=== PATIENT | male | born 1945 | race Caucasian/White ===

== ENCOUNTER 2016-09-26 19:50 | Inpatient (IN) | payer MEDICARE, OTHER ==
[~2016-09-26] VITALS: Ht 172.7 cm; Wt 104.6 kg
[2016-09-26 20:44] VITALS: BP 110/70
[2016-09-26] MEDS ORDERED: PRAM0.255 PO (21:35)
[2016-09-26] MEDS ORDERED: RABE20TA18 PO (21:35)
[2016-09-26] MEDS ORDERED: CHOL10003 PO (21:35)
[2016-09-26] MEDS ORDERED: CLON1TAB3 PO (21:35)
[2016-09-26] MEDS ORDERED: RISP1TAB3 PO (21:35)
[2016-09-26] MEDS ORDERED: BUPR300T3 PO (21:35)
[2016-09-26] MEDS ORDERED: WARF6TAB PO (21:35)
[2016-09-26] MEDS ORDERED: GABA600T2 PO (21:35)
[2016-09-26] MEDS ORDERED: ALLO300T67 PO (21:35)
[2016-09-26] MEDS ORDERED: TEST200V3 IM (21:35)
[2016-09-26] MEDS ORDERED: OXYC-323 PO (21:35)
[2016-09-26] MEDS ORDERED: NABU750T PO (21:35)
[2016-09-26] MEDS ORDERED: OXYB10TA7 PO (21:35)
[2016-09-26] MEDS ORDERED: COLC0.6T34 PO (21:35)
[2016-09-26] MEDS ORDERED: ZOLP10TA4 PO (21:35)
[2016-09-26] MEDS ORDERED: TRAZ-90 PO (21:35)
[2016-09-26] MEDS ORDERED: LITH450T16 PO (21:35)
[2016-09-26] MEDS ORDERED: PRAV20TA2 PO (21:35)
[2016-09-26] MEDS ORDERED: LISI-334 PO (21:35)
[2016-09-26] MEDS ORDERED: ACYC-63 PO (21:35)
[2016-09-26] MEDS ORDERED: CARB1TAB46 PO (21:35)
[2016-09-26] MEDS ORDERED: FERR-26 PO (21:35)
[2016-09-26] MEDS ORDERED: VENL75CA6 PO (21:35)
[2016-09-26] MEDS ORDERED: ACETAMINOPHEN 325 MG TABLET PO PRN (21:45)
[2016-09-26] MEDS ORDERED: MAGNESIUM HYDROXIDE 2,400 MG/30 ML ORAL.SUSP. PO PRN (21:45)
[2016-09-26] MEDS ORDERED: MAG HYDROX/AL HYDROX/SIMETH 30 ML ORAL.SUSP PO PRN (21:45)
[2016-09-26] MEDS ORDERED: METHYL SALICYLATE/MENTHOL TOPICAL OINTMENT 29GM TUBE. TP PRN (21:45)
[2016-09-26] MEDS ORDERED: clonazePAM 1 MG TABLET PO PRN (22:00)
[2016-09-26 22:10] LABS: BASO # 0.1 x10^3/uL (0.0-0.2); BASO % 1 % (0-3); EOS # 0.4 x10^3/uL (0.0-0.7); EOS % 6 % (0-3); HEMATOCRIT 37.5 % (39.0-53.0); HEMOGLOBIN 12.2 g/dL (13.0-17.5); LYMPH # 1.6 x10^3/uL (1.0-4.8); LYMPH % 23 % (24-48); MEAN CORPUSCULAR HEMOGLOBIN 30 pg (25-35); MEAN CORPUSCULAR HGB CONC 33 g/dL (31-37); MEAN CORPUSCULAR VOLUME 92 fL (79-100); MONO # 0.7 x10^3/uL (0.0-1.1); MONO % 10 % (0-9); NEUT # 4.2 x10^3uL (1.8-7.7); NEUT % 60 % (31-73); PLATELET COUNT 145 x10^3/uL (140-400); RED BLOOD COUNT 4.09 x10^6/uL (4.30-5.70); RED CELL DISTRIBUTION WIDTH 19.8 % (11.5-14.5); WHITE BLOOD COUNT 6.9 x10^3/uL (4.0-11.0)
[2016-09-26 22:19] LABS: ALBUMIN/GLOBULIN RATIO 0.9 (1.0-1.7); CALCIUM 8.9 mg/dL (8.5-10.1); CREATININE 1.3 mg/dL (0.7-1.3); GFR 54.6; POTASSIUM 4.1 mmol/L (3.5-5.1); TOTAL BILIRUBIN 0.3 mg/dL (0.2-1.0); TOTAL PROTEIN 6.3 g/dL (6.4-8.2)
[2016-09-26] MEDS ORDERED: VENLAFAXINE 75 MG TABLET. PO SCH (22:30)
[2016-09-26] MEDS ORDERED: traZODone 100 MG TABLET. PO ONE (22:35)
[2016-09-26] MEDS ORDERED: VENLAFAXINE 50 MG TABLET. PO ONE (22:50)
[2016-09-26] MEDS: ZOLPIDEM 10 MG TABLET. PO PRN (23:20)
[2016-09-27 06:22] VITALS: BP 137/75
[2016-09-27] MEDS ORDERED: ZOLPIDEM 10 MG TABLET. PO PRN (07:30)
[2016-09-27] MEDS ORDERED: TESTOSTERONE CYPIONATE 200 MG/ML VIAL. IM SCH (09:00)
[2016-09-27] MEDS: ALLOPURINOL 300 MG TABLET. PO SCH (09:25)
[2016-09-27] MEDS: VENLAFAXINE 50 MG TABLET. PO SCH ×3 (09:25→20:08)
[2016-09-27] MEDS: CARBIDOPA/LEVODOPA 10/100MG TABLET PO SCH ×3 (09:25→20:07)
[2016-09-27] MEDS: LITHIUM CARBONATE ER 450 MG TABLET.ER PO SCH (09:25)
[2016-09-27] MEDS: COLCHICINE 0.6 MG TABLET PO SCH ×3 (09:25→20:07)
[2016-09-27] MEDS: LISINOPRIL 20 MG TABLET PO SCH (09:26)
[2016-09-27] MEDS: PRAMIPEXOLE 0.25 MG TABLET. PO SCH ×3 (09:26→20:07)
[2016-09-27] MEDS: buPROPion XL 300 MG TAB.ER.24H. PO SCH (09:26)
[2016-09-27] MEDS: PANTOPRAZOLE 40 MG TABLET. PO SCH (09:26)
[2016-09-27] MEDS: MELOXICAM 15 MG TABLET. PO SCH (09:26)
[2016-09-27] MEDS: risperiDONE 1 MG TABLET. PO SCH (09:26)
[2016-09-27] MEDS: oxyCODONE/APAP 5/325 1 TAB TABLET PO SCH ×4 (09:27→20:14)
[2016-09-27] MEDS: OXYBUTYNIN CHLORIDE 5 MG TABLET PO SCH ×2 (09:27→20:07)
[2016-09-27] MEDS: FERROUS SULFATE 325 MG TABLET PO SCH (09:27)
[2016-09-27] MEDS: GABAPENTIN 300 MG CAPSULE. PO SCH ×3 (09:27→20:07)
[2016-09-27] MEDS: CHOLECALCIFEROL (VITAMIN D3) 1,000 UNIT TABLET PO SCH (09:27)
[2016-09-27] MEDS: ACYCLOVIR 200 MG CAPSULE PO SCH ×2 (09:28→20:15)
--- NOTE | 2016-09-27 12:39 | EKG ---
[address] [address] Test Date: 2016-09-27 Test Time: 10:49:29 Pat Name: WALTER MOSS Department: Room: [address] [place] [address] Gender: M Youth Worker: : 1945 Requested By: ROLA VARGAS Order Number: [id number] Reading MD: Ger Byrd Measurements Intervals [place] Rate: 42 P: 45 AR: 190 QRS: 44 QRSD: 86 T: 30 QT: 426 QTc: 358 Interpretive Statements SINUS BRADYCARDIA LOW LIMB LEAD VOLTAGE NO SPECIFIC ECG ABNORMALITIES Electronically Signed On 10-06-2016 14:48:51 CDT by Ger Byrd
[2016-09-27 15:49] VITALS: BP 158/80
[2016-09-27] MEDS ORDERED: WARFARIN 6 MG TABLET. PO SCH (17:00)
[2016-09-27 19:08] LABS: T3 TOTAL 86 ng/dL (71-180); THYROXINE 5.1 ug/dL (4.5-12.0)
[2016-09-27] MEDS: PRAVASTATIN 20 MG TABLET. PO SCH (20:13)
[2016-09-27] MEDS: ZOLPIDEM 10 MG TABLET. PO PRN (20:14)
[2016-09-27] MEDS: traZODone 100 MG TABLET. PO SCH (20:15)
[2016-09-27 21:13] LABS: LI 0.6 mmol/L (0.6-1.2)
[2016-09-27 21:18] LABS: THYROID STIM HORMONE (TSH) 1.904 uIU/mL (0.358-3.740)
--- NOTE | 2016-09-27 21:53 | PDOC ---
Exam Hai Demential Exam: Hai Note: Please also refer to the separate dictated note~for this date of service dictated separately.~Patient seen individually. Discussed the patient with Nursing staff reviewed the chart.~Reviewed interim history and current functioning. Reviewed vital signs,~Labs/ Radiology~and current medications noted below. Continue current treatment with the changes noted in the dictated addendum note Assessment: Vital Signs: Vital Signs Date Time Temp Pulse Resp B/P (MAP) Pulse Ox O2 Delivery O2 Flow Rate FiO2 09/27/16 20:14 18 Room Air 09/27/16 18:47 93 09/27/16 15:49 97.1 40 158/80 (106) I&O Intake and Output 09/27/16 07:00 Intake Total 0 ml Balance 0 ml Intake Oral 0 ml Current Medications: Meds: Current Medications Acetaminophen (Tylenol) 650 mg PRN Q6HRS PRN PO PAIN / TEMP; Start 09/26/16 at 21:45 Multi-Ingredient Ointment (Analgesic [place]) 1 jessica PRN QID PRN TP MUSCLE PAIN; Start 09/26/16 at 21:45 Al Hydroxide/Mg Hydroxide (Mylanta Plus Xs) 15 ml PRN AFTMEALHC PRN PO DYSPEPSIA; Start 09/26/16 at 21:45 Magnesium Hydroxide (Milk Of Magnesia) 2,400 mg PRN QHS PRN PO CONSTIPATION; Start 09/26/16 at 21:45 Bupropion HCl (Wellbutrin Xl) 300 mg DAILY PO Last administered on 09/27/16 09 :26; Start 09/27/16 at 09:00 Clonazepam (KlonoPIN) 1 mg PRN BID PRN PO ANXIETY / AGITATION; Start 09/26/16 at 22:00 [place] Carbonate (Eskalith) 450 mg DAILY PO Last administered on 09/27/16 09: 25; Start 09/27/16 at 09:00 Trazodone HCl (Desyrel) 200 mg HS PO Last administered on 09/27/16 20:15; Start 09/27/16 at 21:00 Venlafaxine HCl (Effexor) 150 mg BID PO ; Start 09/26/16 at 22:30; Stop at 22:30; Status DC Trazodone HCl (Desyrel) 200 mg 1X ONCE PO Last administered on 09/26/16 22:39 ; Start 09/26/16 at 22:35; Stop 09/26/16 at 22:36; Status DC Venlafaxine HCl (Effexor) 50 mg TID PO Last administered on 09/27/16 20:08; Start 09/27/16 at 09:00 Venlafaxine HCl (Effexor) 50 mg 1X ONCE PO Last administered on 09/26/16 22: 49; Start 09/26/16 at 22:50; Stop 09/26/16 at 22:51; Status DC Zolpidem Tartrate (Ambien) 10 mg PRN QHS PRN PO INSOMNIA Last administered on 20:14; Start 09/26/16 at 23:15 Acyclovir (Zovirax) 400 mg BID PO Last administered on 09/27/16 20:15; Start 09/27/16 at 09:00 Allopurinol (Zyloprim) 300 mg DAILY PO Last administered on 09/27/16 09:25; Start 09/27/16 at 09:00 Vitamin D (Vitamin D3) 1,000 unit DAILY PO Last administered on 09/27/16 09:27 ; Start 09/27/16 at 09:00 Colchicine (Colcrys) 0.6 mg TID PO Last administered on 09/27/16 20:07; Start 09/27/16 at 09:00 Ferrous Sulfate (Feosol) 324 mg DAILY PO Last administered on 09/27/16 09:27; Start 09/27/16 at 09:00 Lisinopril (Prinivil) 20 mg DAILY PO Last administered on 09/27/16 09:26; Start 09/27/16 at 09:00 Oxycodone/ Acetaminophen (Percocet 5/325) 2 tab QID PO Last administered on 20:14; Start 09/27/16 at 09:00 Pramipexole Dihydrochloride (miraPEX) 0.25 mg TID PO Last administered on 20:07; Start 09/27/16 at 09:00 Pravastatin Sodium (Pravachol) 20 mg HS PO Last administered on 09/27/16 20:13 ; Start 09/27/16 at 21:00 Risperidone (RisperDAL) 1 mg DAILY PO Last administered on 09/27/16 09:26; Start 09/27/16 at 09:00 Testosterone Cypionate (Depo-Testosterone) 200 mg QMONTH IM ; Start 09/27/16 at 09:00; Stop 09/27/16 at 14:01; Status DC Warfarin Sodium (Coumadin) 6 mg DAILYWSUP PO Last administered on 09/27/16 17: 00; Start 09/27/16 at 17:00 Zolpidem Tartrate (Ambien) 10 mg PRN QHS PRN PO INSOMNIA; Start 09/27/16 at 07: 30; Status UNV Carbidopa/Levodopa (Sinemet 10/100) 2 tab TID PO Last administered on 20:07; Start 09/27/16 at 09:00 Gabapentin (Neurontin) 600 mg TID PO Last administered on 09/27/16 20:07; Start 09/27/16 at 09:00 Meloxicam (Mobic) 15 mg DAILY PO Last administered on 09/27/16 09:26; Start at 09:00 Oxybutynin Chloride (Ditropan) 5 mg BID PO Last administered on 09/27/16 20:07 ; Start 09/27/16 at 09:00 Pantoprazole Sodium (Protonix) 40 mg DAILYAC PO Last administered on 09/27/16 09:26; Start 09/27/16 at 09:00 Testosterone Cypionate (Depo-Testosterone) 200 mg QMONTH IM ; Start 10/11/16 at 09:00; Stop 10/11/16 at 09:00; Status DC Active Scripts Active Reported Colcrys (Colchicine) 0.6 Mg Tablet 0.6 Mg PO TID Coumadin (Warfarin Sodium) 6 Mg Tablet 6 Mg PO DAILYWSUP Testosterone Cypionate 200 Mg/1 Ml Vial 200 Mg IM QMONTH Aciphex (Rabeprazole Sodium) 20 Mg Tablet.dr 20 Mg PO BID Pravastatin Sodium 20 Mg Tablet 20 Mg PO HS Percocet 5-325 Mg Tablet (Oxycodone Hcl/Acetaminophen) 1 Each Tablet 2 Tab PO QID Nabumetone 750 Mg Tablet 750 Mg PO BID Lisinopril 20 Mg Tablet 20 Mg PO DAILY Ferrous Sulfate 325 Mg Tablet 324 Mg PO DAILY Carbidopa-Levo 10-100 Mg Odt (Carbidopa/Levodopa) 1 Each Tab.rapdis 2 Tab PO TID Risperidone 1 Mg Tablet 1 Mg PO DAILY Ditropan Xl (Oxybutynin Chloride) 10 Mg Tab.er.24 10 Mg PO DAILY Zolpidem Tartrate 10 Mg Tablet 10 Mg PO PRN QHS PRN Venlafaxine Hcl Er (Venlafaxine Hcl) 75 Mg Cap.er.24h 150 Mg PO BID Trazodone Hcl 100 Mg Tablet 200 Mg PO HS [place] Carbonate 450 Mg Tablet.er 450 Mg PO DAILY Clonazepam 1 Mg Tablet 1 Mg PO PRN BID PRN Vitamin D3 (Cholecalciferol (Vitamin D3)) 1,000 Unit Tablet 1,000 Unit PO DAILY Wellbutrin Xl (Bupropion Hcl) 300 Mg Tab.er.24h 300 Mg PO DAILY Acyclovir 200 Mg Capsule 400 Mg PO BID Zyloprim (Allopurinol) 300 Mg Tablet 300 Mg PO DAILY Mirapex (Pramipexole Di-Hcl) 0.25 Mg Tablet 0.25 Mg PO TID Gabapentin 600 Mg Tablet 600 Mg PO TID ROLA VARGAS MD Sep 27, 2016 21:53
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
[2016-09-28 05:45] VITALS: BP 112/58
[2016-09-28] MEDS: OXYBUTYNIN CHLORIDE 5 MG TABLET PO SCH ×2 (07:57→19:54)
[2016-09-28] MEDS: CHOLECALCIFEROL (VITAMIN D3) 1,000 UNIT TABLET PO SCH (07:57)
[2016-09-28] MEDS: buPROPion XL 300 MG TAB.ER.24H. PO SCH (07:57)
[2016-09-28] MEDS: PANTOPRAZOLE 40 MG TABLET. PO SCH (07:57)
[2016-09-28] MEDS: risperiDONE 1 MG TABLET. PO SCH (07:57)
[2016-09-28] MEDS: MELOXICAM 15 MG TABLET. PO SCH (07:57)
[2016-09-28] MEDS: LITHIUM CARBONATE ER 450 MG TABLET.ER PO SCH (07:57)
[2016-09-28] MEDS: ALLOPURINOL 300 MG TABLET. PO SCH (07:57)
[2016-09-28] MEDS: FERROUS SULFATE 325 MG TABLET PO SCH (07:57)
[2016-09-28] MEDS: GABAPENTIN 300 MG CAPSULE. PO SCH ×3 (07:58→19:56)
[2016-09-28] MEDS: ACYCLOVIR 200 MG CAPSULE PO SCH ×2 (07:58→19:56)
[2016-09-28] MEDS: VENLAFAXINE 50 MG TABLET. PO SCH ×3 (07:58→19:54)
[2016-09-28] MEDS: COLCHICINE 0.6 MG TABLET PO SCH ×3 (07:58→19:54)
[2016-09-28] MEDS: CARBIDOPA/LEVODOPA 10/100MG TABLET PO SCH ×3 (07:58→19:55)
[2016-09-28] MEDS: LISINOPRIL 20 MG TABLET PO SCH (07:58)
[2016-09-28] MEDS: PRAMIPEXOLE 0.25 MG TABLET. PO SCH ×3 (07:58→19:55)
[2016-09-28] MEDS: oxyCODONE/APAP 5/325 1 TAB TABLET PO SCH ×4 (08:00→19:56)
--- NOTE | 2016-09-28 11:45 | PDOC ---
Exam Hai Demential Exam: Hai Note: Please also refer to the separate dictated note~for this date of service dictated separately.~Patient seen individually. Discussed the patient with Nursing staff reviewed the chart.~Reviewed interim history and current functioning. Reviewed vital signs,~Labs/ Radiology~and current medications noted below. Continue current treatment with the changes noted in the dictated addendum note Assessment: Vital Signs: Vital Signs Date Time Temp Pulse Resp B/P (MAP) Pulse Ox O2 Delivery O2 Flow Rate FiO2 09/28/16 09:03 91 09/28/16 07:58 43 112/58 09/28/16 05:45 98.1 18 09/27/16 21:15 Room Air I&O Intake and Output 09/28/16 07:00 Intake Total 1080 ml Balance 1080 ml Intake Oral 1080 ml Labs: Laboratory Tests Test 09/28/16 08:46 Prothrombin Time 10.9 SEC (9.4-11.4) Prothrombin Time INR 1.1 (0.9-1.1) PTT 25 SEC (23-33) Current Medications: Meds: Current Medications Acetaminophen (Tylenol) 650 mg PRN Q6HRS PRN PO PAIN / TEMP; Start 09/26/16 at 21:45 Multi-Ingredient Ointment (Analgesic [place]) 1 jessica PRN QID PRN TP MUSCLE PAIN; Start 09/26/16 at 21:45 Al Hydroxide/Mg Hydroxide (Mylanta Plus Xs) 15 ml PRN AFTMEALHC PRN PO DYSPEPSIA; Start 09/26/16 at 21:45 Magnesium Hydroxide (Milk Of Magnesia) 2,400 mg PRN QHS PRN PO CONSTIPATION; Start 09/26/16 at 21:45 Bupropion HCl (Wellbutrin Xl) 300 mg DAILY PO Last administered on 09/28/16 07 :57; Start 09/27/16 at 09:00 Clonazepam (KlonoPIN) 1 mg PRN BID PRN PO ANXIETY / AGITATION; Start 09/26/16 at 22:00 [place] Carbonate (Eskalith) 450 mg DAILY PO Last administered on 09/28/16 07: 57; Start 09/27/16 at 09:00 Trazodone HCl (Desyrel) 200 mg HS PO Last administered on 09/27/16 20:15; Start 09/27/16 at 21:00 Venlafaxine HCl (Effexor) 150 mg BID PO ; Start 09/26/16 at 22:30; Stop at 22:30; Status DC Trazodone HCl (Desyrel) 200 mg 1X ONCE PO Last administered on 09/26/16 22:39 ; Start 09/26/16 at 22:35; Stop 09/26/16 at 22:36; Status DC Venlafaxine HCl (Effexor) 50 mg TID PO Last administered on 09/28/16 07:58; Start 09/27/16 at 09:00 Venlafaxine HCl (Effexor) 50 mg 1X ONCE PO Last administered on 09/26/16 22: 49; Start 09/26/16 at 22:50; Stop 09/26/16 at 22:51; Status DC Zolpidem Tartrate (Ambien) 10 mg PRN QHS PRN PO INSOMNIA Last administered on 20:14; Start 09/26/16 at 23:15 Acyclovir (Zovirax) 400 mg BID PO Last administered on 09/28/16 07:58; Start 09/27/16 at 09:00 Allopurinol (Zyloprim) 300 mg DAILY PO Last administered on 09/28/16 07:57; Start 09/27/16 at 09:00 Vitamin D (Vitamin D3) 1,000 unit DAILY PO Last administered on 09/28/16 07:57 ; Start 09/27/16 at 09:00 Colchicine (Colcrys) 0.6 mg TID PO Last administered on 09/28/16 07:58; Start 09/27/16 at 09:00 Ferrous Sulfate (Feosol) 324 mg DAILY PO Last administered on 09/28/16 07:57; Start 09/27/16 at 09:00 Lisinopril (Prinivil) 20 mg DAILY PO Last administered on 09/27/16 09:26; Start 09/27/16 at 09:00 Oxycodone/ Acetaminophen (Percocet 5/325) 2 tab QID PO Last administered on 08:00; Start 09/27/16 at 09:00 Pramipexole Dihydrochloride (miraPEX) 0.25 mg TID PO Last administered on 07:58; Start 09/27/16 at 09:00 Pravastatin Sodium (Pravachol) 20 mg HS PO Last administered on 09/27/16 20:13 ; Start 09/27/16 at 21:00 Risperidone (RisperDAL) 1 mg DAILY PO Last administered on 09/28/16 07:57; Start 09/27/16 at 09:00 Testosterone Cypionate (Depo-Testosterone) 200 mg QMONTH IM ; Start 09/27/16 at 09:00; Stop 09/27/16 at 14:01; Status DC Warfarin Sodium (Coumadin) 6 mg DAILYWSUP PO Last administered on 09/27/16 17: 00; Start 09/27/16 at 17:00; Stop 09/28/16 at 09:50; Status DC Zolpidem Tartrate (Ambien) 10 mg PRN QHS PRN PO INSOMNIA; Start 09/27/16 at 07: 30; Status UNV Carbidopa/Levodopa (Sinemet 10/100) 2 tab TID PO Last administered on 07:58; Start 09/27/16 at 09:00 Gabapentin (Neurontin) 600 mg TID PO Last administered on 09/28/16 07:58; Start 09/27/16 at 09:00 Meloxicam (Mobic) 15 mg DAILY PO Last administered on 09/28/16 07:57; Start at 09:00 Oxybutynin Chloride (Ditropan) 5 mg BID PO Last administered on 09/28/16 07:57 ; Start 09/27/16 at 09:00 Pantoprazole Sodium (Protonix) 40 mg DAILYAC PO Last administered on 09/28/16 07:57; Start 09/27/16 at 09:00 Testosterone Cypionate (Depo-Testosterone) 200 mg QMONTH IM ; Start 10/11/16 at 09:00; Stop 10/11/16 at 09:00; Status DC Warfarin Sodium (Coumadin Per Physician) 1 each PRN DAILY PRN MC SEE COMMENTS; Start 09/28/16 at 08:30; Stop 09/28/16 at 08:38; Status DC Warfarin Sodium (Coumadin Per Pharmacy) 1 each PRN DAILY PRN MC SEE COMMENTS Last administered on 7/22/17at 09:58; Start 09/28/16 at 08:30 Warfarin Sodium (Coumadin) 7.5 mg 1X WARF ONCE PO ; Start 09/28/16 at 16:00; Stop 09/28/16 at 16:01 Active Scripts Active Reported Colcrys (Colchicine) 0.6 Mg Tablet 0.6 Mg PO TID Coumadin (Warfarin Sodium) 6 Mg Tablet 6 Mg PO DAILYWSUP Testosterone Cypionate 200 Mg/1 Ml Vial 200 Mg IM QMONTH Aciphex (Rabeprazole Sodium) 20 Mg Tablet.dr 20 Mg PO BID Pravastatin Sodium 20 Mg Tablet 20 Mg PO HS Percocet 5-325 Mg Tablet (Oxycodone Hcl/Acetaminophen) 1 Each Tablet 2 Tab PO QID Nabumetone 750 Mg Tablet 750 Mg PO BID Lisinopril 20 Mg Tablet 20 Mg PO DAILY Ferrous Sulfate 325 Mg Tablet 324 Mg PO DAILY Carbidopa-Levo 10-100 Mg Odt (Carbidopa/Levodopa) 1 Each Tab.rapdis 2 Tab PO TID Risperidone 1 Mg Tablet 1 Mg PO DAILY Ditropan Xl (Oxybutynin Chloride) 10 Mg Tab.er.24 10 Mg PO DAILY Zolpidem Tartrate 10 Mg Tablet 10 Mg PO PRN QHS PRN Venlafaxine Hcl Er (Venlafaxine Hcl) 75 Mg Cap.er.24h 150 Mg PO BID Trazodone Hcl 100 Mg Tablet 200 Mg PO HS [place] Carbonate 450 Mg Tablet.er 450 Mg PO DAILY Clonazepam 1 Mg Tablet 1 Mg PO PRN BID PRN Vitamin D3 (Cholecalciferol (Vitamin D3)) 1,000 Unit Tablet 1,000 Unit PO DAILY Wellbutrin Xl (Bupropion Hcl) 300 Mg Tab.er.24h 300 Mg PO DAILY Acyclovir 200 Mg Capsule 400 Mg PO BID Zyloprim (Allopurinol) 300 Mg Tablet 300 Mg PO DAILY Mirapex (Pramipexole Di-Hcl) 0.25 Mg Tablet 0.25 Mg PO TID Gabapentin 600 Mg Tablet 600 Mg PO TID ROLA VARGAS MD Sep 28, 2016 11:45
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
[2016-09-28 15:28] VITALS: BP 124/66
[2016-09-28] MEDS ORDERED: WARFARIN 7.5 MG TABLET. PO ONE (16:00)
[2016-09-28] MEDS: traZODone 100 MG TABLET. PO SCH (19:54)
[2016-09-28] MEDS: PRAVASTATIN 20 MG TABLET. PO SCH (19:57)
[2016-09-28] MEDS: ZOLPIDEM 10 MG TABLET. PO PRN (19:58)
[2016-09-29 05:53] VITALS: BP 128/71
[2016-09-29] MEDS: PANTOPRAZOLE 40 MG TABLET. PO SCH (08:40)
[2016-09-29] MEDS: COLCHICINE 0.6 MG TABLET PO SCH ×3 (08:43→20:07)
[2016-09-29] MEDS: busPIRone 5 MG TABLET. PO SCH ×2 (08:43→13:29)
[2016-09-29] MEDS: OXYBUTYNIN CHLORIDE 5 MG TABLET PO SCH ×2 (08:44→20:08)
[2016-09-29] MEDS: LITHIUM CARBONATE ER 450 MG TABLET.ER PO SCH (08:44)
[2016-09-29] MEDS: VENLAFAXINE 50 MG TABLET. PO SCH ×3 (08:44→20:07)
[2016-09-29] MEDS: PRAMIPEXOLE 0.25 MG TABLET. PO SCH ×3 (08:46→20:08)
[2016-09-29] MEDS: MELOXICAM 15 MG TABLET. PO SCH (08:46)
[2016-09-29] MEDS: GABAPENTIN 300 MG CAPSULE. PO SCH ×3 (08:47→20:08)
[2016-09-29] MEDS: oxyCODONE/APAP 5/325 1 TAB TABLET PO SCH ×4 (08:48→20:09)
[2016-09-29] MEDS: LISINOPRIL 20 MG TABLET PO SCH ×2 (08:49→09:49)
[2016-09-29] MEDS: ACYCLOVIR 200 MG CAPSULE PO SCH ×2 (08:50→20:11)
[2016-09-29] MEDS: CHOLECALCIFEROL (VITAMIN D3) 1,000 UNIT TABLET PO SCH (08:50)
[2016-09-29] MEDS: CARBIDOPA/LEVODOPA 10/100MG TABLET PO SCH ×3 (08:50→20:08)
[2016-09-29] MEDS: ALLOPURINOL 300 MG TABLET. PO SCH (08:50)
[2016-09-29] MEDS: buPROPion XL 300 MG TAB.ER.24H. PO SCH (08:50)
[2016-09-29] MEDS: FERROUS SULFATE 325 MG TABLET PO SCH (09:00)
--- NOTE | 2016-09-29 09:51 | PN ---
DATE: 09/28/2016 This late entry for 09/28/2016 covers elements not covered in my initial note of 09/28/2016. SUBJECTIVE: The patient was seen individually evening of 09/28/2016 at length. Per nursing report, the patient has been social, pleasant, gets a little irritable at times, but compliant with his medications. [place] level is 0.6. REVIEW OF SYSTEMS: Ambulation impaired. No CV, , pulmonary, eye system symptoms on review. Reliability fair. MENTAL STATUS EXAM: Oriented to himself and situation. Speech has some latency, coherent. Abstraction fair, computation impaired, language function intact, attention span short, mood and affect somewhat irritable at times. Subjectively, he states he still feels angry inside. LABORATORY DATA: Reviewed. IMPRESSION: Probable posttraumatic stress disorder, bipolar 1 disorder, unspecified; anxiety disorder, unspecified; impulse control disorder. PLAN: I had a lengthy discussion with the patient. He states he has occasional recollections recall of events from his time in [place]. He denies overt hallucinations, otherwise. He is unclear why he was started on Risperdal, which is currently 1 mg a day. We will obtain records from the [facility], but at the present time, I do not see a history of active psychotic symptoms to entirely justify the Risperdal. We will gradually taper and stop the Risperdal reducing it to 0.75 mg at bedtime for 2 days, then 0.5 mg at bedtime for 2 days, then 0.25 mg at bedtime for 2 days, then stop it. [place] level is 0.6. We will continue lithium 450 mg daily. For now maintain Wellbutrin 300 mg daily, trazodone 200 mg at bedtime, Ambien 10 mg at bedtime p.r.n., Klonopin 1 mg b.i.d. p.r.n. The patient does not feel Effexor has been helpful, which is currently at 50 mg t.i.d. and we may taper and stop it in due course. For now, we will also start BuSpar 5 mg twice a day and adjust further as clinically indicated. Repeat lithium level in the morning as well. The patient states he has been on BuSpar in the past, unsure what dosage he was on and therefore unsure how much it helped him. As we are tapering the Risperdal, we will also start prazosin 1 mg p.o. at bedtime on 09/29/2016 for his PTSD symptoms and gradually increase this as well. As some of the recall seems not to be active hallucinations, psychosis for which perhaps the Risperdal was started, but rather symptoms reflective of his PTSD. The patient's presentation is fairly complex. Additionally, he has Parkinson's, which may masquerade some of his psychiatric symptoms as well and we will have to monitor his psychotropics and adjust carefully as clinically indicated. MAN Elton VARGAS MD DR: MILKA/carmela JOB#: [id number] / [id number]
[2016-09-29 10:33] LABS: LI 0.7 mmol/L (0.6-1.2)
[2016-09-29 15:55] VITALS: BP 151/82
[2016-09-29] MEDS ORDERED: WARFARIN 7.5 MG TABLET. PO ONE (16:00)
--- NOTE | 2016-09-29 19:50 | PDOC ---
Exam Hai Demential Exam: Hai Note: Please also refer to the separate dictated note~for this date of service dictated separately.~Patient seen individually. Discussed the patient with Nursing staff reviewed the chart.~Reviewed interim history and current functioning. Reviewed vital signs,~Labs/ Radiology~and current medications noted below. Continue current treatment with the changes noted in the dictated addendum note Assessment: Vital Signs: Vital Signs Date Time Temp Pulse Resp B/P (MAP) Pulse Ox O2 Delivery O2 Flow Rate FiO2 09/29/16 17:55 18 09/29/16 15:55 98.4 81 151/82 (105) 96 Room Air I&O Intake and Output 09/29/16 07:00 Intake Total 960 ml Balance 960 ml Intake Oral 960 ml Labs: Laboratory Tests Test 09/29/16 06:30 Prothrombin Time 11.5 SEC (9.4-11.4) H Prothrombin Time INR 1.1 (0.9-1.1) [place] Level 0.7 mmol/L (0.6-1.2) [place] Last Dose Date 09/28/16 [place] Last Dose Time 0900 Current Medications: Meds: Current Medications Acetaminophen (Tylenol) 650 mg PRN Q6HRS PRN PO PAIN / TEMP; Start 09/26/16 at 21:45 Multi-Ingredient Ointment (Analgesic [place]) 1 jessica PRN QID PRN TP MUSCLE PAIN; Start 09/26/16 at 21:45 Al Hydroxide/Mg Hydroxide (Mylanta Plus Xs) 15 ml PRN AFTMEALHC PRN PO DYSPEPSIA; Start 09/26/16 at 21:45 Magnesium Hydroxide (Milk Of Magnesia) 2,400 mg PRN QHS PRN PO CONSTIPATION; Start 09/26/16 at 21:45 Bupropion HCl (Wellbutrin Xl) 300 mg DAILY PO Last administered on 09/29/16 08 :50; Start 09/27/16 at 09:00 Clonazepam (KlonoPIN) 1 mg PRN BID PRN PO ANXIETY / AGITATION; Start 09/26/16 at 22:00 [place] Carbonate (Eskalith) 450 mg DAILY PO Last administered on 09/29/16 08: 44; Start 09/27/16 at 09:00 Trazodone HCl (Desyrel) 200 mg HS PO Last administered on 09/28/16 19:54; Start 09/27/16 at 21:00 Venlafaxine HCl (Effexor) 150 mg BID PO ; Start 09/26/16 at 22:30; Stop at 22:30; Status DC Trazodone HCl (Desyrel) 200 mg 1X ONCE PO Last administered on 09/26/16 22:39 ; Start 09/26/16 at 22:35; Stop 09/26/16 at 22:36; Status DC Venlafaxine HCl (Effexor) 50 mg TID PO Last administered on 09/29/16 13:29; Start 09/27/16 at 09:00 Venlafaxine HCl (Effexor) 50 mg 1X ONCE PO Last administered on 09/26/16 22: 49; Start 09/26/16 at 22:50; Stop 09/26/16 at 22:51; Status DC Zolpidem Tartrate (Ambien) 10 mg PRN QHS PRN PO INSOMNIA Last administered on 19:58; Start 09/26/16 at 23:15 Acyclovir (Zovirax) 400 mg BID PO Last administered on 09/29/16 08:50; Start 09/27/16 at 09:00 Allopurinol (Zyloprim) 300 mg DAILY PO Last administered on 09/29/16 08:50; Start 09/27/16 at 09:00 Vitamin D (Vitamin D3) 1,000 unit DAILY PO Last administered on 09/29/16 08:50 ; Start 09/27/16 at 09:00 Colchicine (Colcrys) 0.6 mg TID PO Last administered on 09/29/16 13:29; Start 09/27/16 at 09:00 Ferrous Sulfate (Feosol) 324 mg DAILY PO Last administered on 09/28/16 07:57; Start 09/27/16 at 09:00; Stop 09/29/16 at 08:46; Status DC Lisinopril (Prinivil) 20 mg DAILY PO Last administered on 09/29/16 09:49; Start 09/27/16 at 09:00 Oxycodone/ Acetaminophen (Percocet 5/325) 2 tab QID PO Last administered on 16:55; Start 09/27/16 at 09:00 Pramipexole Dihydrochloride (miraPEX) 0.25 mg TID PO Last administered on 13:29; Start 09/27/16 at 09:00 Pravastatin Sodium (Pravachol) 20 mg HS PO Last administered on 09/28/16 19:57 ; Start 09/27/16 at 21:00 Risperidone (RisperDAL) 1 mg DAILY PO Last administered on 09/28/16 07:57; Start 09/27/16 at 09:00; Stop 09/29/16 at 00:29; Status DC Testosterone Cypionate (Depo-Testosterone) 200 mg QMONTH IM ; Start 09/27/16 at 09:00; Stop 09/27/16 at 14:01; Status DC Warfarin Sodium (Coumadin) 6 mg DAILYWSUP PO Last administered on 09/27/16 17: 00; Start 09/27/16 at 17:00; Stop 09/28/16 at 09:50; Status DC Zolpidem Tartrate (Ambien) 10 mg PRN QHS PRN PO INSOMNIA; Start 09/27/16 at 07: 30; Status UNV Carbidopa/Levodopa (Sinemet 10/100) 2 tab TID PO Last administered on 13:29; Start 09/27/16 at 09:00 Gabapentin (Neurontin) 600 mg TID PO Last administered on 09/29/16 13:29; Start 09/27/16 at 09:00 Meloxicam (Mobic) 15 mg DAILY PO Last administered on 09/29/16 08:46; Start at 09:00 Oxybutynin Chloride (Ditropan) 5 mg BID PO Last administered on 09/29/16 08:44 ; Start 09/27/16 at 09:00 Pantoprazole Sodium (Protonix) 40 mg DAILYAC PO Last administered on 09/29/16 08:40; Start 09/27/16 at 09:00 Testosterone Cypionate (Depo-Testosterone) 200 mg QMONTH IM ; Start 10/11/16 at 09:00; Stop 10/11/16 at 09:00; Status DC Warfarin Sodium (Coumadin Per Physician) 1 each PRN DAILY PRN [facility] SEE COMMENTS; Start 09/28/16 at 08:30; Stop 09/28/16 at 08:38; Status DC Warfarin Sodium (Coumadin Per Pharmacy) 1 each PRN DAILY PRN [facility] SEE COMMENTS Last administered on 09/28/16 09:58; Start 09/28/16 at 08:30 Warfarin Sodium (Coumadin) 7.5 mg 1X WARF ONCE PO Last administered on 18:12; Start 09/28/16 at 16:00; Stop 09/28/16 at 16:01; Status DC Buspirone HCl (Buspar) 5 mg BID@0900,1400 PO Last administered on 09/29/16 13: 29; Start 09/29/16 at 09:00 Prazosin HCl (Minipress) 1 mg QHS PO ; Start 09/29/16 at 21:00 Risperidone (RisperDAL) 0.75 mg QHS PO ; Start 09/29/16 at 21:00; Stop 10/01/16 at 20:59 Risperidone (RisperDAL) 0.5 mg QHS PO ; Start 10/01/16 at 21:00; Stop 10/03/16 at 20:59 Risperidone (RisperDAL) 0.25 mg QHS PO ; Start 10/03/16 at 21:00; Stop 10/05/16 at 20:59 Warfarin Sodium (Coumadin) 7.5 mg 1X WARF ONCE PO Last administered on 16:55; Start 09/29/16 at 16:00; Stop 09/29/16 at 16:01; Status DC Ferrous Sulfate (Feosol) 325 mg DAILY PO ; Start 09/29/16 at 09:00 Active Scripts Active Reported Colcrys (Colchicine) 0.6 Mg Tablet 0.6 Mg PO TID Coumadin (Warfarin Sodium) 6 Mg Tablet 6 Mg PO DAILYWSUP Testosterone Cypionate 200 Mg/1 Ml Vial 200 Mg IM QMONTH Aciphex (Rabeprazole Sodium) 20 Mg Tablet.dr 20 Mg PO BID Pravastatin Sodium 20 Mg Tablet 20 Mg PO HS Percocet 5-325 Mg Tablet (Oxycodone Hcl/Acetaminophen) 1 Each Tablet 2 Tab PO QID Nabumetone 750 Mg Tablet 750 Mg PO BID Lisinopril 20 Mg Tablet 20 Mg PO DAILY Ferrous Sulfate 325 Mg Tablet 324 Mg PO DAILY Carbidopa-Levo 10-100 Mg Odt (Carbidopa/Levodopa) 1 Each Tab.rapdis 2 Tab PO TID Risperidone 1 Mg Tablet 1 Mg PO DAILY Ditropan Xl (Oxybutynin Chloride) 10 Mg Tab.er.24 10 Mg PO DAILY Zolpidem Tartrate 10 Mg Tablet 10 Mg PO PRN QHS PRN Venlafaxine Hcl Er (Venlafaxine Hcl) 75 Mg Cap.er.24h 150 Mg PO BID Trazodone Hcl 100 Mg Tablet 200 Mg PO HS [place] Carbonate 450 Mg Tablet.er 450 Mg PO DAILY Clonazepam 1 Mg Tablet 1 Mg PO PRN BID PRN Vitamin D3 (Cholecalciferol (Vitamin D3)) 1,000 Unit Tablet 1,000 Unit PO DAILY Wellbutrin Xl (Bupropion Hcl) 300 Mg Tab.er.24h 300 Mg PO DAILY Acyclovir 200 Mg Capsule 400 Mg PO BID Zyloprim (Allopurinol) 300 Mg Tablet 300 Mg PO DAILY Mirapex (Pramipexole Di-Hcl) 0.25 Mg Tablet 0.25 Mg PO TID Gabapentin 600 Mg Tablet 600 Mg PO TID ROLA VARGAS MD Sep 29, 2016 19:50
[2016-09-29] MEDS: traZODone 100 MG TABLET. PO SCH (20:08)
[2016-09-29] MEDS: PRAVASTATIN 20 MG TABLET. PO SCH (20:09)
[2016-09-29] MEDS: risperiDONE 0.5 MG TABLET. PO SCH (20:11)
[2016-09-29] MEDS: PRAZOSIN 1 MG CAPSULE. PO SCH (20:14)
[2016-09-30 06:18] VITALS: BP 151/69
[2016-09-30] MEDS: COLCHICINE 0.6 MG TABLET PO SCH ×3 (08:48→21:10)
[2016-09-30] MEDS: PANTOPRAZOLE 40 MG TABLET. PO SCH (08:48)
[2016-09-30] MEDS: busPIRone 5 MG TABLET. PO SCH ×2 (08:48→13:02)
[2016-09-30] MEDS: PRAMIPEXOLE 0.25 MG TABLET. PO SCH ×3 (08:49→21:11)
[2016-09-30] MEDS: MELOXICAM 15 MG TABLET. PO SCH (08:49)
[2016-09-30] MEDS: FERROUS SULFATE 325 MG TABLET PO SCH (08:49)
[2016-09-30] MEDS: OXYBUTYNIN CHLORIDE 5 MG TABLET PO SCH ×2 (08:49→21:10)
[2016-09-30] MEDS: VENLAFAXINE 50 MG TABLET. PO SCH ×3 (08:49→21:12)
[2016-09-30] MEDS: LITHIUM CARBONATE ER 450 MG TABLET.ER PO SCH (08:49)
[2016-09-30] MEDS: GABAPENTIN 300 MG CAPSULE. PO SCH ×3 (08:50→21:11)
[2016-09-30] MEDS: LISINOPRIL 20 MG TABLET PO SCH (08:51)
[2016-09-30] MEDS: CARBIDOPA/LEVODOPA 10/100MG TABLET PO SCH ×2 (08:51→13:03)
[2016-09-30] MEDS: oxyCODONE/APAP 5/325 1 TAB TABLET PO SCH ×4 (08:51→21:09)
[2016-09-30] MEDS: buPROPion XL 300 MG TAB.ER.24H. PO SCH (08:52)
[2016-09-30] MEDS: ALLOPURINOL 300 MG TABLET. PO SCH (08:52)
[2016-09-30] MEDS: CHOLECALCIFEROL (VITAMIN D3) 1,000 UNIT TABLET PO SCH (08:52)
[2016-09-30] MEDS: ACYCLOVIR 200 MG CAPSULE PO SCH ×2 (08:54→21:16)
[2016-09-30] MEDS ORDERED: WARFARIN 7.5 MG TABLET. PO ONE (16:00)
[2016-09-30 16:28] VITALS: BP 123/75
--- NOTE | 2016-09-30 19:44 | PDOC ---
Exam Hai Demential Exam: Hai Note: Please also refer to the separate dictated note~for this date of service dictated separately.~Patient seen individually. Discussed the patient with Nursing staff reviewed the chart.~Reviewed interim history and current functioning. Reviewed vital signs,~Labs/ Radiology~and current medications noted below. Continue current treatment with the changes noted in the dictated addendum note Assessment: Vital Signs: Vital Signs Date Time Temp Pulse Resp B/P (MAP) Pulse Ox O2 Delivery O2 Flow Rate FiO2 09/30/16 18:49 18 09/30/16 16:28 97.1 42 123/75 (91) 94 Room Air I&O Intake and Output 09/30/16 07:00 Intake Total 1330 ml Balance 1330 ml Intake Oral 1330 ml Labs: Laboratory Tests Test 09/30/16 06:04 Prothrombin Time 14.0 SEC (9.4-11.4) H Prothrombin Time INR 1.4 (0.9-1.1) H Current Medications: Meds: Current Medications Acetaminophen (Tylenol) 650 mg PRN Q6HRS PRN PO PAIN / TEMP; Start 09/26/16 at 21:45 Multi-Ingredient Ointment (Analgesic [place]) 1 jessica PRN QID PRN TP MUSCLE PAIN; Start 09/26/16 at 21:45 Al Hydroxide/Mg Hydroxide (Mylanta Plus Xs) 15 ml PRN AFTMEALHC PRN PO DYSPEPSIA; Start 09/26/16 at 21:45 Magnesium Hydroxide (Milk Of Magnesia) 2,400 mg PRN QHS PRN PO CONSTIPATION; Start 09/26/16 at 21:45 Bupropion HCl (Wellbutrin Xl) 300 mg DAILY PO Last administered on 09/30/16 08 :52; Start 09/27/16 at 09:00 Clonazepam (KlonoPIN) 1 mg PRN BID PRN PO ANXIETY / AGITATION; Start 09/26/16 at 22:00 [place] Carbonate (Eskalith) 450 mg DAILY PO Last administered on 09/30/16 08: 49; Start 09/27/16 at 09:00 Trazodone HCl (Desyrel) 200 mg HS PO Last administered on 09/29/16 20:08; Start 09/27/16 at 21:00 Venlafaxine HCl (Effexor) 150 mg BID PO ; Start 09/26/16 at 22:30; Stop at 22:30; Status DC Trazodone HCl (Desyrel) 200 mg 1X ONCE PO Last administered on 09/26/16 22:39 ; Start 09/26/16 at 22:35; Stop 09/26/16 at 22:36; Status DC Venlafaxine HCl (Effexor) 50 mg TID PO Last administered on 09/30/16 13:02; Start 09/27/16 at 09:00 Venlafaxine HCl (Effexor) 50 mg 1X ONCE PO Last administered on 09/26/16 22: 49; Start 09/26/16 at 22:50; Stop 09/26/16 at 22:51; Status DC Zolpidem Tartrate (Ambien) 10 mg PRN QHS PRN PO INSOMNIA Last administered on 19:58; Start 09/26/16 at 23:15 Acyclovir (Zovirax) 400 mg BID PO Last administered on 09/30/16 08:54; Start 09/27/16 at 09:00 Allopurinol (Zyloprim) 300 mg DAILY PO Last administered on 09/30/16 08:52; Start 09/27/16 at 09:00 Vitamin D (Vitamin D3) 1,000 unit DAILY PO Last administered on 09/30/16 08:52 ; Start 09/27/16 at 09:00 Colchicine (Colcrys) 0.6 mg TID PO Last administered on 09/30/16 13:02; Start 09/27/16 at 09:00 Ferrous Sulfate (Feosol) 324 mg DAILY PO Last administered on 09/28/16 07:57; Start 09/27/16 at 09:00; Stop 09/29/16 at 08:46; Status DC Lisinopril (Prinivil) 20 mg DAILY PO Last administered on 09/30/16 08:51; Start 09/27/16 at 09:00 Oxycodone/ Acetaminophen (Percocet 5/325) 2 tab QID PO Last administered on 17:44; Start 09/27/16 at 09:00 Pramipexole Dihydrochloride (miraPEX) 0.25 mg TID PO Last administered on 13:02; Start 09/27/16 at 09:00 Pravastatin Sodium (Pravachol) 20 mg HS PO Last administered on 09/29/16 20:09 ; Start 09/27/16 at 21:00 Risperidone (RisperDAL) 1 mg DAILY PO Last administered on 09/28/16 07:57; Start 09/27/16 at 09:00; Stop 09/29/16 at 00:29; Status DC Testosterone Cypionate (Depo-Testosterone) 200 mg QMONTH IM ; Start 09/27/16 at 09:00; Stop 09/27/16 at 14:01; Status DC Warfarin Sodium (Coumadin) 6 mg DAILYWSUP PO Last administered on 09/27/16 17: 00; Start 09/27/16 at 17:00; Stop 09/28/16 at 09:50; Status DC Zolpidem Tartrate (Ambien) 10 mg PRN QHS PRN PO INSOMNIA; Start 09/27/16 at 07: 30; Status UNV Carbidopa/Levodopa (Sinemet 10/100) 2 tab TID PO Last administered on 13:03; Start 09/27/16 at 09:00; Stop 09/30/16 at 18:27; Status DC Gabapentin (Neurontin) 600 mg TID PO Last administered on 09/30/16 13:03; Start 09/27/16 at 09:00 Meloxicam (Mobic) 15 mg DAILY PO Last administered on 09/30/16 08:49; Start at 09:00 Oxybutynin Chloride (Ditropan) 5 mg BID PO Last administered on 09/30/16 08:49 ; Start 09/27/16 at 09:00 Pantoprazole Sodium (Protonix) 40 mg DAILYAC PO Last administered on 09/30/16 08:48; Start 09/27/16 at 09:00 Testosterone Cypionate (Depo-Testosterone) 200 mg QMONTH IM ; Start 10/11/16 at 09:00; Stop 10/11/16 at 09:00; Status DC Warfarin Sodium (Coumadin Per Physician) 1 each PRN DAILY PRN [facility] SEE COMMENTS; Start 09/28/16 at 08:30; Stop 09/28/16 at 08:38; Status DC Warfarin Sodium (Coumadin Per Pharmacy) 1 each PRN DAILY PRN [facility] SEE COMMENTS Last administered on 09/30/16 12:27; Start 09/28/16 at 08:30 Warfarin Sodium (Coumadin) 7.5 mg 1X WARF ONCE PO Last administered on 18:12; Start 09/28/16 at 16:00; Stop 09/28/16 at 16:01; Status DC Buspirone HCl (Buspar) 5 mg BID@0900,1400 PO Last administered on 09/30/16 13: 02; Start 09/29/16 at 09:00 Prazosin HCl (Minipress) 1 mg QHS PO Last administered on 09/29/16 20:14; Start 09/29/16 at 21:00 Risperidone (RisperDAL) 0.75 mg QHS PO Last administered on 09/29/16 20:11; Start 09/29/16 at 21:00; Stop 10/01/16 at 20:59 Risperidone (RisperDAL) 0.5 mg QHS PO ; Start 10/01/16 at 21:00; Stop 10/03/16 at 20:59 Risperidone (RisperDAL) 0.25 mg QHS PO ; Start 10/03/16 at 21:00; Stop 10/05/16 at 20:59 Warfarin Sodium (Coumadin) 7.5 mg 1X WARF ONCE PO Last administered on 16:55; Start 09/29/16 at 16:00; Stop 09/29/16 at 16:01; Status DC Ferrous Sulfate (Feosol) 325 mg DAILY PO Last administered on 09/30/16 08:49; Start 09/29/16 at 09:00 Warfarin Sodium (Coumadin) 7.5 mg 1X WARF ONCE PO Last administered on 16:02; Start 09/30/16 at 16:00; Stop 09/30/16 at 16:01; Status DC Carbidopa/Levodopa (Sinemet 25/100) 2 tab TID PO ; Start 09/30/16 at 21:00 Active Scripts Active Reported Colcrys (Colchicine) 0.6 Mg Tablet 0.6 Mg PO TID Coumadin (Warfarin Sodium) 6 Mg Tablet 6 Mg PO DAILYWSUP Testosterone Cypionate 200 Mg/1 Ml Vial 200 Mg IM QMONTH Aciphex (Rabeprazole Sodium) 20 Mg Tablet.dr 20 Mg PO BID Pravastatin Sodium 20 Mg Tablet 20 Mg PO HS Percocet 5-325 Mg Tablet (Oxycodone Hcl/Acetaminophen) 1 Each Tablet 2 Tab PO QID Nabumetone 750 Mg Tablet 750 Mg PO BID Lisinopril 20 Mg Tablet 20 Mg PO DAILY Ferrous Sulfate 325 Mg Tablet 324 Mg PO DAILY Carbidopa-Levo 10-100 Mg Odt (Carbidopa/Levodopa) 1 Each Tab.rapdis 2 Tab PO TID Risperidone 1 Mg Tablet 1 Mg PO DAILY Ditropan Xl (Oxybutynin Chloride) 10 Mg Tab.er.24 10 Mg PO DAILY Zolpidem Tartrate 10 Mg Tablet 10 Mg PO PRN QHS PRN Venlafaxine Hcl Er (Venlafaxine Hcl) 75 Mg Cap.er.24h 150 Mg PO BID Trazodone Hcl 100 Mg Tablet 200 Mg PO HS [place] Carbonate 450 Mg Tablet.er 450 Mg PO DAILY Clonazepam 1 Mg Tablet 1 Mg PO PRN BID PRN Vitamin D3 (Cholecalciferol (Vitamin D3)) 1,000 Unit Tablet 1,000 Unit PO DAILY Wellbutrin Xl (Bupropion Hcl) 300 Mg Tab.er.24h 300 Mg PO DAILY Acyclovir 200 Mg Capsule 400 Mg PO BID Zyloprim (Allopurinol) 300 Mg Tablet 300 Mg PO DAILY Mirapex (Pramipexole Di-Hcl) 0.25 Mg Tablet 0.25 Mg PO TID Gabapentin 600 Mg Tablet 600 Mg PO TID ROLA VARGAS MD Sep 30, 2016 19:44
[2016-09-30] MEDS: risperiDONE 0.5 MG TABLET. PO SCH (21:10)
[2016-09-30] MEDS: traZODone 100 MG TABLET. PO SCH (21:10)
[2016-09-30] MEDS: PRAVASTATIN 20 MG TABLET. PO SCH (21:12)
[2016-09-30] MEDS: CARBIDOPA/LEVODOPA 25/100MG TABLET PO SCH (21:16)
[2016-09-30] MEDS: PRAZOSIN 1 MG CAPSULE. PO SCH (21:20)
--- NOTE | 2016-09-30 23:27 | PN ---
DATE: 09/29/2016 This late entry for 09/29/2016 cover elements not covered in my initial note. SUBJECTIVE: The patient was seen individually in the evening of 09/29/2016. Per nursing report, the patient remains somewhat withdrawn, but has not been agitated, aggressive. He has been social and compliant. His visited him and he was not agitated with her either. I processed this with him at some length. REVIEW OF SYSTEMS: Ambulation impaired with a cane. No CV, , pulmonary, eye system symptoms on review. MENTAL STATUS EXAM: Reasonably oriented. Speech is coherent, abstraction fair, computation impaired, language function intact, attention span short. Mood and affect appears less labile. No active suicidal or homicidal ideation. LABORATORY DATA: Reviewed. IMPRESSION: Impulse control disorder, unspecified, rule out bipolar 1 disorder, unspecified; history of major depressive disorder; anxiety disorder, unspecified. PLAN: Risperdal is being tapered and stopped. Continue BuSpar, prazosin, Effexor, lithium. Repeat lithium level is 0.7 along with Klonopin p.r.n., Ambien p.r.n. and Wellbutrin. Adjust further as clinically indicated. ROLA VARGAS MD DR: MILKA/carmela JOB#: [id number] / [id number]
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
[2016-10-01 06:46] VITALS: BP 98/51
[2016-10-01] MEDS: LISINOPRIL 20 MG TABLET PO SCH (09:00)
[2016-10-01] MEDS: VENLAFAXINE 50 MG TABLET. PO SCH ×3 (09:20→19:22)
[2016-10-01] MEDS: LITHIUM CARBONATE ER 450 MG TABLET.ER PO SCH (09:21)
[2016-10-01] MEDS: buPROPion XL 300 MG TAB.ER.24H. PO SCH (09:21)
[2016-10-01] MEDS: PRAMIPEXOLE 0.25 MG TABLET. PO SCH ×3 (09:21→19:23)
[2016-10-01] MEDS: ALLOPURINOL 300 MG TABLET. PO SCH (09:21)
[2016-10-01] MEDS: CHOLECALCIFEROL (VITAMIN D3) 1,000 UNIT TABLET PO SCH (09:21)
[2016-10-01] MEDS: GABAPENTIN 300 MG CAPSULE. PO SCH ×3 (09:21→19:23)
[2016-10-01] MEDS: OXYBUTYNIN CHLORIDE 5 MG TABLET PO SCH ×2 (09:21→19:23)
[2016-10-01] MEDS: COLCHICINE 0.6 MG TABLET PO SCH ×3 (09:21→19:23)
[2016-10-01] MEDS: CARBIDOPA/LEVODOPA 25/100MG TABLET PO SCH ×3 (09:21→19:22)
[2016-10-01] MEDS: MELOXICAM 15 MG TABLET. PO SCH (09:22)
[2016-10-01] MEDS: FERROUS SULFATE 325 MG TABLET PO SCH (09:22)
[2016-10-01] MEDS: PANTOPRAZOLE 40 MG TABLET. PO SCH (09:22)
[2016-10-01] MEDS: busPIRone 5 MG TABLET. PO SCH ×2 (09:22→14:10)
[2016-10-01] MEDS: ACYCLOVIR 200 MG CAPSULE PO SCH ×2 (09:38→19:30)
[2016-10-01] MEDS: oxyCODONE/APAP 5/325 1 TAB TABLET PO SCH ×4 (09:38→19:29)
[2016-10-01 16:00] VITALS: BP 123/66
[2016-10-01] MEDS ORDERED: WARFARIN 7.5 MG TABLET. PO ONE (16:00)
[2016-10-01] MEDS ORDERED: ZOLPIDEM 10 MG TABLET. PO PRN (18:45)
[2016-10-01] MEDS: PRAZOSIN 1 MG CAPSULE. PO SCH (19:22)
[2016-10-01] MEDS: risperiDONE 0.5 MG TABLET. PO SCH (19:23)
[2016-10-01] MEDS: traZODone 100 MG TABLET. PO SCH (19:23)
[2016-10-01] MEDS: PRAVASTATIN 20 MG TABLET. PO SCH (19:23)
--- NOTE | 2016-10-01 19:45 | PDOC ---
Exam Hai Demential Exam: Hai Note: Please also refer to the separate dictated note~for this date of service dictated separately.~Patient seen individually. Discussed the patient with Nursing staff reviewed the chart.~Reviewed interim history and current functioning. Reviewed vital signs,~Labs/ Radiology~and current medications noted below. Continue current treatment with the changes noted in the dictated addendum note Assessment: Vital Signs: Vital Signs Date Time Temp Pulse Resp B/P (MAP) Pulse Ox O2 Delivery O2 Flow Rate FiO2 10/01/16 19:29 18 Room Air 10/01/16 19:22 50 123/66 10/01/16 18:22 96 10/01/16 16:00 98.3 I&O Intake and Output 10/01/16 07:00 Intake Total 1380 ml Balance 1380 ml Intake Oral 1380 ml Labs: Laboratory Tests Test 10/01/16 06:25 Prothrombin Time 16.8 SEC (9.4-11.4) H Prothrombin Time INR 1.6 (0.9-1.1) H Current Medications: Meds: Current Medications Acetaminophen (Tylenol) 650 mg PRN Q6HRS PRN PO PAIN / TEMP; Start 09/26/16 at 21:45 Multi-Ingredient Ointment (Analgesic [place]) 1 jessica PRN QID PRN TP MUSCLE PAIN; Start 09/26/16 at 21:45 Al Hydroxide/Mg Hydroxide (Mylanta Plus Xs) 15 ml PRN AFTMEALHC PRN PO DYSPEPSIA; Start 09/26/16 at 21:45 Magnesium Hydroxide (Milk Of Magnesia) 2,400 mg PRN QHS PRN PO CONSTIPATION; Start 09/26/16 at 21:45 Bupropion HCl (Wellbutrin Xl) 300 mg DAILY PO Last administered on 10/01/16 09 :21; Start 09/27/16 at 09:00 Clonazepam (KlonoPIN) 1 mg PRN BID PRN PO ANXIETY / AGITATION; Start 09/26/16 at 22:00 [place] Carbonate (Eskalith) 450 mg DAILY PO Last administered on 10/01/16 09: 21; Start 09/27/16 at 09:00 Trazodone HCl (Desyrel) 200 mg HS PO Last administered on 10/01/16 19:23; Start 09/27/16 at 21:00 Venlafaxine HCl (Effexor) 150 mg BID PO ; Start 09/26/16 at 22:30; Stop at 22:30; Status DC Trazodone HCl (Desyrel) 200 mg 1X ONCE PO Last administered on 09/26/16 22:39 ; Start 09/26/16 at 22:35; Stop 09/26/16 at 22:36; Status DC Venlafaxine HCl (Effexor) 50 mg TID PO Last administered on 10/01/16 19:22; Start 09/27/16 at 09:00 Venlafaxine HCl (Effexor) 50 mg 1X ONCE PO Last administered on 09/26/16 22: 49; Start 09/26/16 at 22:50; Stop 09/26/16 at 22:51; Status DC Zolpidem Tartrate (Ambien) 10 mg PRN QHS PRN PO INSOMNIA Last administered on 19:58; Start 09/26/16 at 23:15; Stop 10/01/16 at 21:00 Acyclovir (Zovirax) 400 mg BID PO Last administered on 10/01/16 19:30; Start 09/27/16 at 09:00 Allopurinol (Zyloprim) 300 mg DAILY PO Last administered on 10/01/16 09:21; Start 09/27/16 at 09:00 Vitamin D (Vitamin D3) 1,000 unit DAILY PO Last administered on 10/01/16 09:21 ; Start 09/27/16 at 09:00 Colchicine (Colcrys) 0.6 mg TID PO Last administered on 10/01/16 19:23; Start 09/27/16 at 09:00 Ferrous Sulfate (Feosol) 324 mg DAILY PO Last administered on 09/28/16 07:57; Start 09/27/16 at 09:00; Stop 09/29/16 at 08:46; Status DC Lisinopril (Prinivil) 20 mg DAILY PO Last administered on 09/30/16 08:51; Start 09/27/16 at 09:00 Oxycodone/ Acetaminophen (Percocet 5/325) 2 tab QID PO Last administered on 19:29; Start 09/27/16 at 09:00 Pramipexole Dihydrochloride (miraPEX) 0.25 mg TID PO Last administered on 19:23; Start 09/27/16 at 09:00 Pravastatin Sodium (Pravachol) 20 mg HS PO Last administered on 10/01/16 19:23 ; Start 09/27/16 at 21:00 Risperidone (RisperDAL) 1 mg DAILY PO Last administered on 09/28/16 07:57; Start 09/27/16 at 09:00; Stop 09/29/16 at 00:29; Status DC Testosterone Cypionate (Depo-Testosterone) 200 mg QMONTH IM ; Start 09/27/16 at 09:00; Stop 09/27/16 at 14:01; Status DC Warfarin Sodium (Coumadin) 6 mg DAILYWSUP PO Last administered on 09/27/16 17: 00; Start 09/27/16 at 17:00; Stop 09/28/16 at 09:50; Status DC Zolpidem Tartrate (Ambien) 10 mg PRN QHS PRN PO INSOMNIA; Start 09/27/16 at 07: 30; Status UNV Carbidopa/Levodopa (Sinemet 10/100) 2 tab TID PO Last administered on 13:03; Start 09/27/16 at 09:00; Stop 09/30/16 at 18:27; Status DC Gabapentin (Neurontin) 600 mg TID PO Last administered on 10/01/16 19:23; Start 09/27/16 at 09:00 Meloxicam (Mobic) 15 mg DAILY PO Last administered on 10/01/16 09:22; Start at 09:00 Oxybutynin Chloride (Ditropan) 5 mg BID PO Last administered on 10/01/16 19:23 ; Start 09/27/16 at 09:00 Pantoprazole Sodium (Protonix) 40 mg DAILYAC PO Last administered on 10/01/16 09:22; Start 09/27/16 at 09:00 Testosterone Cypionate (Depo-Testosterone) 200 mg QMONTH IM ; Start 10/11/16 at 09:00; Stop 10/11/16 at 09:00; Status DC Warfarin Sodium (Coumadin Per Physician) 1 each PRN DAILY PRN MC SEE COMMENTS; Start 09/28/16 at 08:30; Stop 09/28/16 at 08:38; Status DC Warfarin Sodium (Coumadin Per Pharmacy) 1 each PRN DAILY PRN MC SEE COMMENTS Last administered on 10/01/16 14:08; Start 09/28/16 at 08:30 Warfarin Sodium (Coumadin) 7.5 mg 1X WARF ONCE PO Last administered on 18:12; Start 09/28/16 at 16:00; Stop 09/28/16 at 16:01; Status DC Buspirone HCl (Buspar) 5 mg BID@0900,1400 PO Last administered on 10/01/16 14: 10; Start 09/29/16 at 09:00 Prazosin HCl (Minipress) 1 mg QHS PO Last administered on 10/01/16 19:22; Start 09/29/16 at 21:00 Risperidone (RisperDAL) 0.75 mg QHS PO Last administered on 09/30/16 21:10; Start 09/29/16 at 21:00; Stop 10/01/16 at 20:59 Risperidone (RisperDAL) 0.5 mg QHS PO Last administered on 10/01/16 19:23; Start 10/01/16 at 21:00; Stop 10/03/16 at 20:59 Risperidone (RisperDAL) 0.25 mg QHS PO ; Start 10/03/16 at 21:00; Stop 10/05/16 at 20:59 Warfarin Sodium (Coumadin) 7.5 mg 1X WARF ONCE PO Last administered on 16:55; Start 09/29/16 at 16:00; Stop 09/29/16 at 16:01; Status DC Ferrous Sulfate (Feosol) 325 mg DAILY PO Last administered on 10/01/16 09:22; Start 09/29/16 at 09:00 Warfarin Sodium (Coumadin) 7.5 mg 1X WARF ONCE PO Last administered on 16:02; Start 09/30/16 at 16:00; Stop 09/30/16 at 16:01; Status DC Carbidopa/Levodopa (Sinemet 25/100) 2 tab TID PO Last administered on 19:22; Start 09/30/16 at 21:00 Warfarin Sodium (Coumadin) 7.5 mg 1X WARF ONCE PO Last administered on t 16:57; Start 10/01/16 at 16:00; Stop 10/01/16 at 16:01; Status DC Zolpidem Tartrate (Ambien) 10 mg HS PO ; Start 10/01/16 at 21:00; Stop 10/03/16 at 21:00 Zolpidem Tartrate (Ambien) 10 mg PRN QHS PRN PO INSOMNIA; Start 10/01/16 at 18: 45 Active Scripts Active Reported Colcrys (Colchicine) 0.6 Mg Tablet 0.6 Mg PO TID Coumadin (Warfarin Sodium) 6 Mg Tablet 6 Mg PO DAILYWSUP Testosterone Cypionate 200 Mg/1 Ml Vial 200 Mg IM QMONTH Aciphex (Rabeprazole Sodium) 20 Mg Tablet.dr 20 Mg PO BID Pravastatin Sodium 20 Mg Tablet 20 Mg PO HS Percocet 5-325 Mg Tablet (Oxycodone Hcl/Acetaminophen) 1 Each Tablet 2 Tab PO QID Nabumetone 750 Mg Tablet 750 Mg PO BID Lisinopril 20 Mg Tablet 20 Mg PO DAILY Ferrous Sulfate 325 Mg Tablet 324 Mg PO DAILY Carbidopa-Levo 10-100 Mg Odt (Carbidopa/Levodopa) 1 Each Tab.rapdis 2 Tab PO TID Risperidone 1 Mg Tablet 1 Mg PO DAILY Ditropan Xl (Oxybutynin Chloride) 10 Mg Tab.er.24 10 Mg PO DAILY Zolpidem Tartrate 10 Mg Tablet 10 Mg PO PRN QHS PRN Venlafaxine Hcl Er (Venlafaxine Hcl) 75 Mg Cap.er.24h 150 Mg PO BID Trazodone Hcl 100 Mg Tablet 200 Mg PO HS [place] Carbonate 450 Mg Tablet.er 450 Mg PO DAILY Clonazepam 1 Mg Tablet 1 Mg PO PRN BID PRN Vitamin D3 (Cholecalciferol (Vitamin D3)) 1,000 Unit Tablet 1,000 Unit PO DAILY Wellbutrin Xl (Bupropion Hcl) 300 Mg Tab.er.24h 300 Mg PO DAILY Acyclovir 200 Mg Capsule 400 Mg PO BID Zyloprim (Allopurinol) 300 Mg Tablet 300 Mg PO DAILY Mirapex (Pramipexole Di-Hcl) 0.25 Mg Tablet 0.25 Mg PO TID Gabapentin 600 Mg Tablet 600 Mg PO TID Diagnosis: Problems: (1) Anxiety disorder (2) Impulse control disorder (3) Major depressive disorder, recurrent episode ROLA VARGAS MD Oct 01, 2016 19:44
[2016-10-01] MEDS ORDERED: ZOLPIDEM 10 MG TABLET. PO SCH (21:00)
[2016-10-02 05:16] VITALS: BP 160/85
--- NOTE | 2016-10-02 06:44 | PN ---
DATE: 09/30/2016 This is a late entry for 09/30/2016, covers elements not covered in my initial note. I met with the patient evening of 09/30/2016. Overall, the patient has had some increase in Parkinson's symptoms with increased tremors and jerking movements. Dosages of his anti-Parkinson's medications were confirmed with his and we have requested Dr. Davis for neurological consultation as well. I have reviewed extensive records from Dr. Keen at the [facility] and has prior diagnoses of PTSD, major depressive disorder, psychotic disorder, Parkinson's disease and prior treatments as well. REVIEW OF SYSTEMS: Positive for impaired ambulation and tremors. No CV, , pulmonary, eye system symptoms on review. MENTAL STATUS EXAM: The patient is reasonably oriented. Speech has some latency, coherent. Abstraction fair, computation impaired, language function intact. Attention span short. Mood and affect less labile. He slept just 2-1/2 hours previous night. LABORATORY DATA: Reviewed. IMPRESSION: Unchanged from initial note. PLAN: We will continue to taper the Risperdal, prazosin was added and we will increase it gradually. Maintain rest of the psychotropics as before including the lithium. Adjust further as clinically indicated. ROLA VARGAS MD DR: MILKA/carmela JOB#: [id number] / [id number]
[2016-10-02 07:18] LABS: BASO # 0.1 x10^3/uL (0.0-0.2); BASO % 1 % (0-3); EOS # 0.3 x10^3/uL (0.0-0.7); EOS % 5 % (0-3); HEMATOCRIT 39.1 % (39.0-53.0); HEMOGLOBIN 12.8 g/dL (13.0-17.5); LYMPH # 1.2 x10^3/uL (1.0-4.8); LYMPH % 18 % (24-48); MEAN CORPUSCULAR HEMOGLOBIN 30 pg (25-35); MEAN CORPUSCULAR HGB CONC 33 g/dL (31-37); MEAN CORPUSCULAR VOLUME 92 fL (79-100); MONO # 0.7 x10^3/uL (0.0-1.1); MONO % 11 % (0-9); NEUT # 4.3 x10^3uL (1.8-7.7); NEUT % 65 % (31-73); PLATELET COUNT 138 x10^3/uL (140-400); RED BLOOD COUNT 4.24 x10^6/uL (4.30-5.70); RED CELL DISTRIBUTION WIDTH 19.2 % (11.5-14.5); WHITE BLOOD COUNT 6.7 x10^3/uL (4.0-11.0)
[2016-10-02 07:39] LABS: ALBUMIN 3.3 g/dL (3.4-5.0); CALCIUM 9.1 mg/dL (8.5-10.1); CREATININE 1.4 mg/dL (0.7-1.3); GFR 50.1; MAGNESIUM 2.1 mg/dL (1.8-2.4); POTASSIUM 4.6 mmol/L (3.5-5.1); TOTAL BILIRUBIN 0.3 mg/dL (0.2-1.0); TOTAL PROTEIN 6.7 g/dL (6.4-8.2)
[2016-10-02] MEDS: LITHIUM CARBONATE ER 450 MG TABLET.ER PO SCH (08:59)
[2016-10-02] MEDS: ALLOPURINOL 300 MG TABLET. PO SCH (08:59)
[2016-10-02] MEDS: FERROUS SULFATE 325 MG TABLET PO SCH (08:59)
[2016-10-02] MEDS: GABAPENTIN 300 MG CAPSULE. PO SCH ×3 (08:59→19:11)
[2016-10-02] MEDS: VENLAFAXINE 50 MG TABLET. PO SCH ×3 (08:59→19:11)
[2016-10-02] MEDS: CARBIDOPA/LEVODOPA 25/100MG TABLET PO SCH ×3 (08:59→19:12)
[2016-10-02] MEDS: LISINOPRIL 20 MG TABLET PO SCH (09:00)
[2016-10-02] MEDS: MELOXICAM 15 MG TABLET. PO SCH (09:00)
[2016-10-02] MEDS: OXYBUTYNIN CHLORIDE 5 MG TABLET PO SCH ×2 (09:00→19:12)
[2016-10-02] MEDS: ACYCLOVIR 200 MG CAPSULE PO SCH ×2 (09:00→19:15)
[2016-10-02] MEDS: CHOLECALCIFEROL (VITAMIN D3) 1,000 UNIT TABLET PO SCH (09:00)
[2016-10-02] MEDS: busPIRone 5 MG TABLET. PO SCH ×2 (09:00→13:44)
[2016-10-02] MEDS: PRAMIPEXOLE 0.25 MG TABLET. PO SCH ×3 (09:00→19:12)
[2016-10-02] MEDS: COLCHICINE 0.6 MG TABLET PO SCH ×3 (09:00→19:11)
[2016-10-02] MEDS: buPROPion XL 300 MG TAB.ER.24H. PO SCH (09:00)
[2016-10-02] MEDS: PANTOPRAZOLE 40 MG TABLET. PO SCH (09:00)
[2016-10-02] MEDS: oxyCODONE/APAP 5/325 1 TAB TABLET PO SCH ×4 (09:02→19:15)
[2016-10-02 15:54] VITALS: BP 127/67
[2016-10-02] MEDS ORDERED: WARFARIN 10 MG TABLET. PO ONE (16:00)
[2016-10-02] MEDS: traZODone 100 MG TABLET. PO SCH (19:11)
[2016-10-02] MEDS: PRAVASTATIN 20 MG TABLET. PO SCH (19:11)
[2016-10-02] MEDS: risperiDONE 0.5 MG TABLET. PO SCH (19:12)
[2016-10-02] MEDS ORDERED: MELATONIN 3 MG TABLET PO PRN (19:15)
[2016-10-02] MEDS: PRAZOSIN 1 MG CAPSULE. PO SCH (19:33)
--- NOTE | 2016-10-02 19:48 | PDOC ---
Exam Hai Demential Exam: Hai Note: Please also refer to the separate dictated note~for this date of service dictated separately.~Patient seen individually. Discussed the patient with Nursing staff reviewed the chart.~Reviewed interim history and current functioning. Reviewed vital signs,~Labs/ Radiology~and current medications noted below. Continue current treatment with the changes noted in the dictated addendum note Assessment: Vital Signs: Vital Signs Date Time Temp Pulse Resp B/P (MAP) Pulse Ox O2 Delivery O2 Flow Rate FiO2 10/02/16 19:33 51 127/67 10/02/16 19:15 18 Room Air 10/02/16 19:09 95 10/02/16 15:54 97.7 I&O Intake and Output 10/02/16 07:00 Intake Total 1080 ml Balance 1080 ml Intake Oral 840 ml Lipid 240 ml # Bowel Movements 1 Labs: Laboratory Tests Test 10/02/16 06:49 White Blood Count 6.7 x10^3/uL (4.0-11.0) Red Blood Count 4.24 x10^6/uL (4.30-5.70) L Hemoglobin 12.8 g/dL (13.0-17.5) L Hematocrit 39.1 % (39.0-53.0) Mean Corpuscular Volume 92 fL (79-100) Mean Corpuscular Hemoglobin 30 pg (25-35) Mean Corpuscular Hemoglobin Concent 33 g/dL (31-37) Red Cell Distribution Width 19.2 % (11.5-14.5) H Platelet Count 138 x10^3/uL (140-400) L Neutrophils (%) (Auto) 65 % (31-73) Lymphocytes (%) (Auto) 18 % (24-48) L Monocytes (%) (Auto) 11 % (0-9) H Eosinophils (%) (Auto) 5 % (0-3) H Basophils (%) (Auto) 1 % (0-3) Neutrophils # (Auto) 4.3 x10^3uL (1.8-7.7) Lymphocytes # (Auto) 1.2 x10^3/uL (1.0-4.8) Monocytes # (Auto) 0.7 x10^3/uL (0.0-1.1) Eosinophils # (Auto) 0.3 x10^3/uL (0.0-0.7) Basophils # (Auto) 0.1 x10^3/uL (0.0-0.2) Prothrombin Time 17.4 SEC (9.4-11.4) H Prothrombin Time INR 1.7 (0.9-1.1) H Sodium Level 141 mmol/L (136-145) Potassium Level 4.6 mmol/L (3.5-5.1) Chloride Level 108 mmol/L (98-107) H Carbon Dioxide Level 26 mmol/L (21-32) Anion Gap 7 (6-14) Blood Urea Nitrogen 22 mg/dL (8-26) Creatinine 1.4 mg/dL (0.7-1.3) H Estimated GFR (Cockcroft-Gault) 50.1 BUN/Creatinine Ratio 16 (6-20) Glucose Level 105 mg/dL (70-99) H Calcium Level 9.1 mg/dL (8.5-10.1) Magnesium Level 2.1 mg/dL (1.8-2.4) Total Bilirubin 0.3 mg/dL (0.2-1.0) Aspartate Amino Transferase (AST) 21 U/L (15-37) Alanine Aminotransferase (ALT) 11 U/L (16-63) L Alkaline Phosphatase 103 U/L (46-116) Total Protein 6.7 g/dL (6.4-8.2) Albumin 3.3 g/dL (3.4-5.0) L Albumin/Globulin Ratio 1.0 (1.0-1.7) Current Medications: Meds: Current Medications Acetaminophen (Tylenol) 650 mg PRN Q6HRS PRN PO PAIN / TEMP; Start 09/26/16 at 21:45 Multi-Ingredient Ointment (Analgesic [place]) 1 jessica PRN QID PRN TP MUSCLE PAIN; Start 09/26/16 at 21:45 Al Hydroxide/Mg Hydroxide (Mylanta Plus Xs) 15 ml PRN AFTMEALHC PRN PO DYSPEPSIA; Start 09/26/16 at 21:45 Magnesium Hydroxide (Milk Of Magnesia) 2,400 mg PRN QHS PRN PO CONSTIPATION; Start 09/26/16 at 21:45 Bupropion HCl (Wellbutrin Xl) 300 mg DAILY PO Last administered on 10/02/16t 09 :00; Start 09/27/16 at 09:00 Clonazepam (KlonoPIN) 1 mg PRN BID PRN PO ANXIETY / AGITATION Last administered on 10/02/16 00:40; Start 09/26/16 at 22:00 [place] Carbonate (Eskalith) 450 mg DAILY PO Last administered on 10/02/16 08: 59; Start 09/27/16 at 09:00 Trazodone HCl (Desyrel) 200 mg HS PO Last administered on 10/02/16 19:11; Start 09/27/16 at 21:00 Venlafaxine HCl (Effexor) 150 mg BID PO ; Start 09/26/16 at 22:30; Stop at 22:30; Status DC Trazodone HCl (Desyrel) 200 mg 1X ONCE PO Last administered on 09/26/16 22:39 ; Start 09/26/16 at 22:35; Stop 09/26/16 at 22:36; Status DC Venlafaxine HCl (Effexor) 50 mg TID PO Last administered on 10/02/16 19:11; Start 09/27/16 at 09:00 Venlafaxine HCl (Effexor) 50 mg 1X ONCE PO Last administered on 09/26/16 22: 49; Start 09/26/16 at 22:50; Stop 09/26/16 at 22:51; Status DC Zolpidem Tartrate (Ambien) 10 mg PRN QHS PRN PO INSOMNIA Last administered on 19:58; Start 09/26/16 at 23:15; Stop 10/01/16 at 21:00; Status DC Acyclovir (Zovirax) 400 mg BID PO Last administered on 10/02/16 19:15; Start 09/27/16 at 09:00 Allopurinol (Zyloprim) 300 mg DAILY PO Last administered on 10/02/16 08:59; Start 09/27/16 at 09:00 Vitamin D (Vitamin D3) 1,000 unit DAILY PO Last administered on 10/02/16 09:00 ; Start 09/27/16 at 09:00 Colchicine (Colcrys) 0.6 mg TID PO Last administered on 10/02/16 19:11; Start 09/27/16 at 09:00 Ferrous Sulfate (Feosol) 324 mg DAILY PO Last administered on 09/28/16 07:57; Start 09/27/16 at 09:00; Stop 09/29/16 at 08:46; Status DC Lisinopril (Prinivil) 20 mg DAILY PO Last administered on 10/02/16 09:00; Start 09/27/16 at 09:00 Oxycodone/ Acetaminophen (Percocet 5/325) 2 tab QID PO Last administered on 19:15; Start 09/27/16 at 09:00 Pramipexole Dihydrochloride (miraPEX) 0.25 mg TID PO Last administered on 19:12; Start 09/27/16 at 09:00 Pravastatin Sodium (Pravachol) 20 mg HS PO Last administered on 10/02/16 19:11 ; Start 09/27/16 at 21:00 Risperidone (RisperDAL) 1 mg DAILY PO Last administered on 09/28/16 07:57; Start 09/27/16 at 09:00; Stop 09/29/16 at 00:29; Status DC Testosterone Cypionate (Depo-Testosterone) 200 mg QMONTH IM ; Start 09/27/16 at 09:00; Stop 09/27/16 at 14:01; Status DC Warfarin Sodium (Coumadin) 6 mg DAILYWSUP PO Last administered on 09/27/16 17: 00; Start 09/27/16 at 17:00; Stop 09/28/16 at 09:50; Status DC Zolpidem Tartrate (Ambien) 10 mg PRN QHS PRN PO INSOMNIA; Start 09/27/16 at 07: 30; Status UNV Carbidopa/Levodopa (Sinemet 10/100) 2 tab TID PO Last administered on 13:03; Start 09/27/16 at 09:00; Stop 09/30/16 at 18:27; Status DC Gabapentin (Neurontin) 600 mg TID PO Last administered on 10/02/16 19:11; Start 09/27/16 at 09:00 Meloxicam (Mobic) 15 mg DAILY PO Last administered on 10/02/16 09:00; Start at 09:00 Oxybutynin Chloride (Ditropan) 5 mg BID PO Last administered on 10/02/16 19:12 ; Start 09/27/16 at 09:00 Pantoprazole Sodium (Protonix) 40 mg DAILYAC PO Last administered on 10/02/16 09:00; Start 09/27/16 at 09:00 Testosterone Cypionate (Depo-Testosterone) 200 mg QMONTH IM ; Start 10/11/16 at 09:00; Stop 10/11/16 at 09:00; Status DC Warfarin Sodium (Coumadin Per Physician) 1 each PRN DAILY PRN MC SEE COMMENTS; Start 09/28/16 at 08:30; Stop 09/28/16 at 08:38; Status DC Warfarin Sodium (Coumadin Per Pharmacy) 1 each PRN DAILY PRN MC SEE COMMENTS Last administered on 10/02/16 13:33; Start 09/28/16 at 08:30 Warfarin Sodium (Coumadin) 7.5 mg 1X WARF ONCE PO Last administered on 18:12; Start 09/28/16 at 16:00; Stop 09/28/16 at 16:01; Status DC Buspirone HCl (Buspar) 5 mg BID@0900,1400 PO Last administered on 10/02/16 13: 44; Start 09/29/16 at 09:00 Prazosin HCl (Minipress) 1 mg QHS PO Last administered on 10/01/16 19:22; Start 09/29/16 at 21:00; Stop 10/02/16 at 19:10; Status DC Risperidone (RisperDAL) 0.75 mg QHS PO Last administered on 09/30/16 21:10; Start 09/29/16 at 21:00; Stop 10/01/16 at 20:59; Status DC Risperidone (RisperDAL) 0.5 mg QHS PO Last administered on 10/02/16 19:12; Start 10/01/16 at 21:00; Stop 10/03/16 at 20:59 Risperidone (RisperDAL) 0.25 mg QHS PO ; Start 10/03/16 at 21:00; Stop 10/05/16 at 20:59 Warfarin Sodium (Coumadin) 7.5 mg 1X WARF ONCE PO Last administered on 16:55; Start 09/29/16 at 16:00; Stop 09/29/16 at 16:01; Status DC Ferrous Sulfate (Feosol) 325 mg DAILY PO Last administered on 10/02/16 08:59; Start 09/29/16 at 09:00 Warfarin Sodium (Coumadin) 7.5 mg 1X WARF ONCE PO Last administered on 16:02; Start 09/30/16 at 16:00; Stop 09/30/16 at 16:01; Status DC Carbidopa/Levodopa (Sinemet 25/100) 2 tab TID PO Last administered on 19:12; Start 09/30/16 at 21:00 Warfarin Sodium (Coumadin) 7.5 mg 1X WARF ONCE PO Last administered on 16:57; Start 10/01/16 at 16:00; Stop 10/01/16 at 16:01; Status DC Zolpidem Tartrate (Ambien) 10 mg HS PO Last administered on 10/01/16 21:34; Start 10/01/16 at 21:00; Stop 10/02/16 at 19:10; Status DC Zolpidem Tartrate (Ambien) 10 mg PRN QHS PRN PO INSOMNIA; Start 10/01/16 at 18: 45; Stop 10/02/16 at 19:10; Status DC Warfarin Sodium (Coumadin) 10 mg 1X WARF ONCE PO Last administered on 17:17; Start 10/02/16 at 16:00; Stop 10/02/16 at 16:01; Status DC Prazosin HCl (Minipress) 2 mg QHS PO Last administered on 10/02/16 19:33; Start 10/02/16 at 21:00 Melatonin 3 mg PRN QHS PRN PO INSOMNIA Last administered on 10/02/16 19:42; Start 10/02/16 at 19:15 Melatonin 3 mg HS PO ; Start 10/02/16 at 21:00; Stop 10/02/16 at 21:00; Status DC Active Scripts Active Reported Colcrys (Colchicine) 0.6 Mg Tablet 0.6 Mg PO TID Coumadin (Warfarin Sodium) 6 Mg Tablet 6 Mg PO DAILYWSUP Testosterone Cypionate 200 Mg/1 Ml Vial 200 Mg IM QMONTH Aciphex (Rabeprazole Sodium) 20 Mg Tablet.dr 20 Mg PO BID Pravastatin Sodium 20 Mg Tablet 20 Mg PO HS Percocet 5-325 Mg Tablet (Oxycodone Hcl/Acetaminophen) 1 Each Tablet 2 Tab PO QID Nabumetone 750 Mg Tablet 750 Mg PO BID Lisinopril 20 Mg Tablet 20 Mg PO DAILY Ferrous Sulfate 325 Mg Tablet 324 Mg PO DAILY Carbidopa-Levo 10-100 Mg Odt (Carbidopa/Levodopa) 1 Each Tab.rapdis 2 Tab PO TID Risperidone 1 Mg Tablet 1 Mg PO DAILY Ditropan Xl (Oxybutynin Chloride) 10 Mg Tab.er.24 10 Mg PO DAILY Zolpidem Tartrate 10 Mg Tablet 10 Mg PO PRN QHS PRN Venlafaxine Hcl Er (Venlafaxine Hcl) 75 Mg Cap.er.24h 150 Mg PO BID Trazodone Hcl 100 Mg Tablet 200 Mg PO HS [place] Carbonate 450 Mg Tablet.er 450 Mg PO DAILY Clonazepam 1 Mg Tablet 1 Mg PO PRN BID PRN Vitamin D3 (Cholecalciferol (Vitamin D3)) 1,000 Unit Tablet 1,000 Unit PO DAILY Wellbutrin Xl (Bupropion Hcl) 300 Mg Tab.er.24h 300 Mg PO DAILY Acyclovir 200 Mg Capsule 400 Mg PO BID Zyloprim (Allopurinol) 300 Mg Tablet 300 Mg PO DAILY Mirapex (Pramipexole Di-Hcl) 0.25 Mg Tablet 0.25 Mg PO TID Gabapentin 600 Mg Tablet 600 Mg PO TID Diagnosis: Problems: (1) Anxiety disorder (2) Impulse control disorder (3) Major depressive disorder, recurrent episode (4) Parkinson's disease (5) Psychosis, atypical ROLA VARGAS MD Oct 02, 2016 19:48
[2016-10-02] MEDS ORDERED: MELATONIN 3 MG TABLET PO SCH (21:00)
--- NOTE | 2016-10-02 21:48 | PN ---
DATE: 10/01/2016 PSYCHIATRIC PROGRESS NOTE This is a late entry for 10/01/2016, covers elements not covered in my initial note. SUBJECTIVE: The patient slept 7-1/2 hours previous night. The day before, he was agitated if people would walk in front of the television, but he has done better during the day on 10/01/2016. Tremors are better as well. His came to visit him twice and the interaction was positive with no agitation from the patient's side. REVIEW OF SYSTEMS: Impaired ambulation. Some parkinsonian symptoms. No CV, , pulmonary, eye, ENT system symptoms on review. MENTAL STATUS EXAM: Reasonably oriented. Speech is coherent, abstraction fair, computation reasonable, language function intact, attention span short, mood and affect showing improvement. No clear psychotic symptoms noted. LABORATORY DATA: Reviewed. IMPRESSION: Unchanged from initial note including major depressive disorder, recurrent with history of psychotic features; PTSD; anxiety disorder, unspecified. PLAN: Increase prazosin to 2 mg at bedtime. Continue rest of the psychotropics and continue to taper the Risperdal. Adjust further as clinically indicated. MAN Elton VARGAS MD DR: MILKA/carmela JOB#: [id number] / [id number]
[2016-10-03 05:38] VITALS: BP 106/67
[2016-10-03] MEDS: OXYBUTYNIN CHLORIDE 5 MG TABLET PO SCH ×2 (09:09→20:11)
[2016-10-03] MEDS: CHOLECALCIFEROL (VITAMIN D3) 1,000 UNIT TABLET PO SCH (09:09)
[2016-10-03] MEDS: ALLOPURINOL 300 MG TABLET. PO SCH (09:09)
[2016-10-03] MEDS: PRAMIPEXOLE 0.25 MG TABLET. PO SCH ×3 (09:09→20:11)
[2016-10-03] MEDS: GABAPENTIN 300 MG CAPSULE. PO SCH ×3 (09:09→20:10)
[2016-10-03] MEDS: CARBIDOPA/LEVODOPA 25/100MG TABLET PO SCH ×3 (09:09→20:11)
[2016-10-03] MEDS: buPROPion XL 300 MG TAB.ER.24H. PO SCH (09:09)
[2016-10-03] MEDS: VENLAFAXINE 50 MG TABLET. PO SCH ×3 (09:09→20:11)
[2016-10-03] MEDS: COLCHICINE 0.6 MG TABLET PO SCH ×3 (09:09→20:12)
[2016-10-03] MEDS: FERROUS SULFATE 325 MG TABLET PO SCH (09:10)
[2016-10-03] MEDS: MELOXICAM 15 MG TABLET. PO SCH (09:10)
[2016-10-03] MEDS: busPIRone 5 MG TABLET. PO SCH ×3 (09:10→20:14)
[2016-10-03] MEDS: LISINOPRIL 20 MG TABLET PO SCH (09:10)
[2016-10-03] MEDS: PANTOPRAZOLE 40 MG TABLET. PO SCH (09:10)
[2016-10-03] MEDS: LITHIUM CARBONATE ER 450 MG TABLET.ER PO SCH (09:10)
[2016-10-03] MEDS: ACYCLOVIR 200 MG CAPSULE PO SCH ×2 (09:11→20:16)
[2016-10-03] MEDS: oxyCODONE/APAP 5/325 1 TAB TABLET PO SCH ×4 (09:11→20:16)
[2016-10-03 11:08] LABS: LI 0.9 mmol/L (0.6-1.2)
[2016-10-03 15:53] VITALS: BP 117/63
[2016-10-03] MEDS ORDERED: WARFARIN 7.5 MG TABLET. PO ONE (16:00)
--- NOTE | 2016-10-03 19:43 | PDOC ---
Exam Hai Demential Exam: Hai Note: Please also refer to the separate dictated note~for this date of service dictated separately.~Patient seen individually. Discussed the patient with Nursing staff reviewed the chart.~Reviewed interim history and current functioning. Reviewed vital signs,~Labs/ Radiology~and current medications noted below. Continue current treatment with the changes noted in the dictated addendum note Assessment: Vital Signs: Vital Signs Date Time Temp Pulse Resp B/P (MAP) Pulse Ox O2 Delivery O2 Flow Rate FiO2 10/03/16 18:13 94 10/03/16 15:53 98.1 67 18 117/63 (81) Room Air I&O Intake and Output 10/03/16 07:00 Intake Total 1200 ml Balance 1200 ml Intake Oral 1200 ml Labs: Laboratory Tests Test 10/03/16 06:06 Prothrombin Time 24.9 SEC (9.4-11.4) H Prothrombin Time INR 2.4 (0.9-1.1) H Current Medications: Meds: Current Medications Acetaminophen (Tylenol) 650 mg PRN Q6HRS PRN PO PAIN / TEMP; Start 09/26/16 at 21:45 Multi-Ingredient Ointment (Analgesic [place]) 1 jessica PRN QID PRN TP MUSCLE PAIN; Start 09/26/16 at 21:45 Al Hydroxide/Mg Hydroxide (Mylanta Plus Xs) 15 ml PRN AFTMEALHC PRN PO DYSPEPSIA; Start 09/26/16 at 21:45 Magnesium Hydroxide (Milk Of Magnesia) 2,400 mg PRN QHS PRN PO CONSTIPATION; Start 09/26/16 at 21:45 Bupropion HCl (Wellbutrin Xl) 300 mg DAILY PO Last administered on 10/03/16 09 :09; Start 09/27/16 at 09:00 Clonazepam (KlonoPIN) 1 mg PRN BID PRN PO ANXIETY / AGITATION Last administered on 10/02/16 00:40; Start 09/26/16 at 22:00 [place] Carbonate (Eskalith) 450 mg DAILY PO Last administered on 10/03/16 09: 10; Start 09/27/16 at 09:00 Trazodone HCl (Desyrel) 200 mg HS PO Last administered on 10/02/16 19:11; Start 09/27/16 at 21:00 Venlafaxine HCl (Effexor) 150 mg BID PO ; Start 09/26/16 at 22:30; Stop at 22:30; Status DC Trazodone HCl (Desyrel) 200 mg 1X ONCE PO Last administered on 09/26/16 22:39 ; Start 09/26/16 at 22:35; Stop 09/26/16 at 22:36; Status DC Venlafaxine HCl (Effexor) 50 mg TID PO Last administered on 10/03/16 13:14; Start 09/27/16 at 09:00 Venlafaxine HCl (Effexor) 50 mg 1X ONCE PO Last administered on 09/26/16 22: 49; Start 09/26/16 at 22:50; Stop 09/26/16 at 22:51; Status DC Zolpidem Tartrate (Ambien) 10 mg PRN QHS PRN PO INSOMNIA Last administered on 19:58; Start 09/26/16 at 23:15; Stop 10/01/16 at 21:00; Status DC Acyclovir (Zovirax) 400 mg BID PO Last administered on 10/03/16 09:11; Start 09/27/16 at 09:00 Allopurinol (Zyloprim) 300 mg DAILY PO Last administered on 10/03/16 09:09; Start 09/27/16 at 09:00 Vitamin D (Vitamin D3) 1,000 unit DAILY PO Last administered on 10/03/16 09:09 ; Start 09/27/16 at 09:00 Colchicine (Colcrys) 0.6 mg TID PO Last administered on 10/03/16 13:14; Start 09/27/16 at 09:00 Ferrous Sulfate (Feosol) 324 mg DAILY PO Last administered on 09/28/16 07:57; Start 09/27/16 at 09:00; Stop 09/29/16 at 08:46; Status DC Lisinopril (Prinivil) 20 mg DAILY PO Last administered on 10/03/16 09:10; Start 09/27/16 at 09:00 Oxycodone/ Acetaminophen (Percocet 5/325) 2 tab QID PO Last administered on 17:13; Start 09/27/16 at 09:00 Pramipexole Dihydrochloride (miraPEX) 0.25 mg TID PO Last administered on 13:15; Start 09/27/16 at 09:00 Pravastatin Sodium (Pravachol) 20 mg HS PO Last administered on 10/02/16 19:11 ; Start 09/27/16 at 21:00 Risperidone (RisperDAL) 1 mg DAILY PO Last administered on 09/28/16 07:57; Start 09/27/16 at 09:00; Stop 09/29/16 at 00:29; Status DC Testosterone Cypionate (Depo-Testosterone) 200 mg QMONTH IM ; Start 09/27/16 at 09:00; Stop 09/27/16 at 14:01; Status DC Warfarin Sodium (Coumadin) 6 mg DAILYWSUP PO Last administered on 09/27/16 17: 00; Start 09/27/16 at 17:00; Stop 09/28/16 at 09:50; Status DC Zolpidem Tartrate (Ambien) 10 mg PRN QHS PRN PO INSOMNIA; Start 09/27/16 at 07: 30; Status UNV Carbidopa/Levodopa (Sinemet 10/100) 2 tab TID PO Last administered on 13:03; Start 09/27/16 at 09:00; Stop 09/30/16 at 18:27; Status DC Gabapentin (Neurontin) 600 mg TID PO Last administered on 10/03/16 13:15; Start 09/27/16 at 09:00 Meloxicam (Mobic) 15 mg DAILY PO Last administered on 10/03/16 09:10; Start at 09:00 Oxybutynin Chloride (Ditropan) 5 mg BID PO Last administered on 10/03/16 09:09 ; Start 09/27/16 at 09:00 Pantoprazole Sodium (Protonix) 40 mg DAILYAC PO Last administered on 10/03/16 09:10; Start 09/27/16 at 09:00 Testosterone Cypionate (Depo-Testosterone) 200 mg QMONTH IM ; Start 10/11/16 at 09:00; Stop 10/11/16 at 09:00; Status DC Warfarin Sodium (Coumadin Per Physician) 1 each PRN DAILY PRN [facility] SEE COMMENTS; Start 09/28/16 at 08:30; Stop 09/28/16 at 08:38; Status DC Warfarin Sodium (Coumadin Per Pharmacy) 1 each PRN DAILY PRN MC SEE COMMENTS Last administered on 10/03/16 11:38; Start 09/28/16 at 08:30 Warfarin Sodium (Coumadin) 7.5 mg 1X WARF ONCE PO Last administered on 18:12; Start 09/28/16 at 16:00; Stop 09/28/16 at 16:01; Status DC Buspirone HCl (Buspar) 5 mg BID@0900,1400 PO Last administered on 10/03/16 09: 10; Start 09/29/16 at 09:00; Stop 10/03/16 at 10:35; Status DC Prazosin HCl (Minipress) 1 mg QHS PO Last administered on 10/01/16 19:22; Start 09/29/16 at 21:00; Stop 10/02/16 at 19:10; Status DC Risperidone (RisperDAL) 0.75 mg QHS PO Last administered on 09/30/16 21:10; Start 09/29/16 at 21:00; Stop 10/01/16 at 20:59; Status DC Risperidone (RisperDAL) 0.5 mg QHS PO Last administered on 10/02/16 19:12; Start 10/01/16 at 21:00; Stop 10/03/16 at 20:59 Risperidone (RisperDAL) 0.25 mg QHS PO ; Start 10/03/16 at 21:00; Stop 10/05/16 at 20:59 Warfarin Sodium (Coumadin) 7.5 mg 1X WARF ONCE PO Last administered on 16:55; Start 09/29/16 at 16:00; Stop 09/29/16 at 16:01; Status DC Ferrous Sulfate (Feosol) 325 mg DAILY PO Last administered on 10/03/16 09:10; Start 09/29/16 at 09:00 Warfarin Sodium (Coumadin) 7.5 mg 1X WARF ONCE PO Last administered on 16:02; Start 09/30/16 at 16:00; Stop 09/30/16 at 16:01; Status DC Carbidopa/Levodopa (Sinemet 25/100) 2 tab TID PO Last administered on 13:15; Start 09/30/16 at 21:00 Warfarin Sodium (Coumadin) 7.5 mg 1X WARF ONCE PO Last administered on 16:57; Start 10/01/16 at 16:00; Stop 10/01/16 at 16:01; Status DC Zolpidem Tartrate (Ambien) 10 mg HS PO Last administered on 10/01/16 21:34; Start 10/01/16 at 21:00; Stop 10/02/16 at 19:10; Status DC Zolpidem Tartrate (Ambien) 10 mg PRN QHS PRN PO INSOMNIA; Start 10/01/16 at 18: 45; Stop 10/02/16 at 19:10; Status DC Warfarin Sodium (Coumadin) 10 mg 1X WARF ONCE PO Last administered on 17:17; Start 10/02/16 at 16:00; Stop 10/02/16 at 16:01; Status DC Prazosin HCl (Minipress) 2 mg QHS PO Last administered on 10/02/16 19:33; Start 10/02/16 at 21:00 Melatonin 3 mg PRN QHS PRN PO INSOMNIA Last administered on 10/02/16 19:42; Start 10/02/16 at 19:15; Stop 10/03/16 at 07:16; Status DC Melatonin 3 mg HS PO ; Start 10/02/16 at 21:00; Stop 10/02/16 at 21:00; Status DC Melatonin 3 mg HS PO ; Start 10/03/16 at 21:00 Buspirone HCl (Buspar) 5 mg TID PO Last administered on 10/03/16 13:16; Start 10/03/16 at 14:00 Warfarin Sodium (Coumadin) 7.5 mg 1X WARF ONCE PO Last administered on 17:13; Start 10/03/16 at 16:00; Stop 10/03/16 at 16:01; Status DC Active Scripts Active Reported Colcrys (Colchicine) 0.6 Mg Tablet 0.6 Mg PO TID Coumadin (Warfarin Sodium) 6 Mg Tablet 6 Mg PO DAILYWSUP Testosterone Cypionate 200 Mg/1 Ml Vial 200 Mg IM QMONTH Aciphex (Rabeprazole Sodium) 20 Mg Tablet.dr 20 Mg PO BID Pravastatin Sodium 20 Mg Tablet 20 Mg PO HS Percocet 5-325 Mg Tablet (Oxycodone Hcl/Acetaminophen) 1 Each Tablet 2 Tab PO QID Nabumetone 750 Mg Tablet 750 Mg PO BID Lisinopril 20 Mg Tablet 20 Mg PO DAILY Ferrous Sulfate 325 Mg Tablet 324 Mg PO DAILY Carbidopa-Levo 10-100 Mg Odt (Carbidopa/Levodopa) 1 Each Tab.rapdis 2 Tab PO TID Risperidone 1 Mg Tablet 1 Mg PO DAILY Ditropan Xl (Oxybutynin Chloride) 10 Mg Tab.er.24 10 Mg PO DAILY Zolpidem Tartrate 10 Mg Tablet 10 Mg PO PRN QHS PRN Venlafaxine Hcl Er (Venlafaxine Hcl) 75 Mg Cap.er.24h 150 Mg PO BID Trazodone Hcl 100 Mg Tablet 200 Mg PO HS [place] Carbonate 450 Mg Tablet.er 450 Mg PO DAILY Clonazepam 1 Mg Tablet 1 Mg PO PRN BID PRN Vitamin D3 (Cholecalciferol (Vitamin D3)) 1,000 Unit Tablet 1,000 Unit PO DAILY Wellbutrin Xl (Bupropion Hcl) 300 Mg Tab.er.24h 300 Mg PO DAILY Acyclovir 200 Mg Capsule 400 Mg PO BID Zyloprim (Allopurinol) 300 Mg Tablet 300 Mg PO DAILY Mirapex (Pramipexole Di-Hcl) 0.25 Mg Tablet 0.25 Mg PO TID Gabapentin 600 Mg Tablet 600 Mg PO TID Diagnosis: Problems: (1) Anxiety disorder (2) Impulse control disorder (3) Major depressive disorder, recurrent episode ROLA VARGAS MD Oct 03, 2016 19:43
[2016-10-03] MEDS: PRAZOSIN 1 MG CAPSULE. PO SCH (20:10)
[2016-10-03] MEDS: PRAVASTATIN 20 MG TABLET. PO SCH (20:11)
[2016-10-03] MEDS: risperiDONE 0.5 MG TABLET. PO SCH (20:11)
[2016-10-03] MEDS: traZODone 100 MG TABLET. PO SCH (20:12)
[2016-10-03] MEDS: MELATONIN 3 MG TABLET PO SCH (20:14)
[2016-10-03] MEDS: risperiDONE 0.25 MG TABLET. PO SCH (20:14)
--- NOTE | 2016-10-04 | PN ---
DATE: 10/03/2016 PSYCHIATRIC PROGRESS NOTE This note covers elements not covered in my initial note of 10/03/2016. SUBJECTIVE: The patient was staffed at a treatment team meeting the morning of 10/03/2016 with the entire team, social service staff, nursing staff and the patient's and the patient attending the conference. We reviewed the patient's history at length, diagnosis manriquez, and perception of the patient's progress. The patient slept 5-1/2 hours previous night. Appetite fair. Two nights ago, he was quite psychotic and late in the evening believed people were shooting at him. There is some connection of this with his usage of Ambien and we have discontinued the Ambien. Discussed the patient's diagnosis with the patient and his , answered their questions. Discussed further adjustments that might be needed within the context of his Parkinson's and the Sinemet with this propensity to worsen psychosis. REVIEW OF SYSTEMS: Ambulation impaired. No CV, , pulmonary, eye system symptoms on review. MENTAL STATUS EXAM: Reasonably oriented. Speech coherent, has some latency. Abstraction fair, computation impaired, language function intact, attention span short, mood and affect showing improvement. LABORATORY DATA: Reviewed. IMPRESSION: Psychotic disorder, unspecified; PTSD; major depressive disorder with psychotic features; impulse control disorder, unspecified. PLAN: Continue to taper the Risperdal. Prazosin has been increased to 2 mg at bedtime. Increase BuSpar from 5 mg twice a day to 5 mg 3 times a day. Continue rest of the psychotropics. Adjust further as clinically indicated. MAN Elton VARGAS MD DR: MILKA/carmela JOB#: [id number] / [id number]
--- NOTE | 2016-10-04 04:18 | PN ---
DATE: PSYCHIATRIC PROGRESS NOTE This is a late entry for 12/03/2016, covers elements not covered in my initial note of 12/03/2016. SUBJECTIVE: The patient was seen individually evening of 12/03/2016, the previous evening late at night, he had some questionable hallucinations, believes that his neighbors were trying to shoot. He is quite convinced of this. Nursing staff wondered whether Ambien exacerbates this and we will stop the Ambien. Later, he was pulling the trim of the wall, restless, anxious. Quasi, delirious. During the day on 12/03, none of this has been evident. REVIEW OF SYSTEMS: Ambulation impaired. No CV, , pulmonary, eye system symptoms on review. MENTAL STATUS EXAM: Reasonably oriented. Speech is coherent, has some latency. Abstraction fair, computation impaired, language function intact, attention span fair. Mood and affect is improved. LABORATORY DATA: Reviewed. IMPRESSION: Psychotic disorder, unspecified; posttraumatic stress disorder; impulse control disorder, unspecified; history of major depressive disorder; Parkinson disease. Rest unchanged. PLAN: Stop the Ambien, start melatonin 3 mg at bedtime. Continue Effexor, lithium, Wellbutrin, trazodone, Klonopin p.r.n., Risperdal is being tapered. Maintain BuSpar, increase prazosin to 2 mg at bedtime. Review drug interactions risk issue. Favors no further change at this time. ROLA VARGAS MD DR: MILKA/carmela JOB#: [id number] / [id number]
[2016-10-04 06:04] VITALS: BP 128/65
[2016-10-04] MEDS: FERROUS SULFATE 325 MG TABLET PO SCH (08:30)
[2016-10-04] MEDS: GABAPENTIN 300 MG CAPSULE. PO SCH ×3 (08:30→19:25)
[2016-10-04] MEDS: CHOLECALCIFEROL (VITAMIN D3) 1,000 UNIT TABLET PO SCH (08:30)
[2016-10-04] MEDS: oxyCODONE/APAP 5/325 1 TAB TABLET PO SCH ×4 (08:30→19:28)
[2016-10-04] MEDS: MELOXICAM 15 MG TABLET. PO SCH (08:32)
[2016-10-04] MEDS: PANTOPRAZOLE 40 MG TABLET. PO SCH (08:32)
[2016-10-04] MEDS: OXYBUTYNIN CHLORIDE 5 MG TABLET PO SCH ×2 (08:32→19:26)
[2016-10-04] MEDS: buPROPion XL 300 MG TAB.ER.24H. PO SCH (08:32)
[2016-10-04] MEDS: PRAMIPEXOLE 0.25 MG TABLET. PO SCH ×3 (08:32→19:26)
[2016-10-04] MEDS: VENLAFAXINE 50 MG TABLET. PO SCH ×3 (08:32→19:24)
[2016-10-04] MEDS: CARBIDOPA/LEVODOPA 25/100MG TABLET PO SCH ×3 (08:32→19:24)
[2016-10-04] MEDS: LITHIUM CARBONATE ER 450 MG TABLET.ER PO SCH (08:32)
[2016-10-04] MEDS: COLCHICINE 0.6 MG TABLET PO SCH ×3 (08:32→19:24)
[2016-10-04] MEDS: ACYCLOVIR 200 MG CAPSULE PO SCH ×2 (08:33→19:27)
[2016-10-04] MEDS: ALLOPURINOL 300 MG TABLET. PO SCH (08:33)
[2016-10-04] MEDS: busPIRone 5 MG TABLET. PO SCH ×3 (08:33→19:26)
[2016-10-04] MEDS: LISINOPRIL 20 MG TABLET PO SCH (08:44)
[2016-10-04 16:00] VITALS: BP 119/61
[2016-10-04] MEDS ORDERED: WARFARIN 6 MG TABLET. PO ONE (16:00)
[2016-10-04] MEDS: MELATONIN 3 MG TABLET PO SCH (19:25)
[2016-10-04] MEDS: traZODone 100 MG TABLET. PO SCH (19:25)
[2016-10-04] MEDS: PRAZOSIN 1 MG CAPSULE. PO SCH (19:25)
[2016-10-04] MEDS: PRAVASTATIN 20 MG TABLET. PO SCH (19:26)
[2016-10-04] MEDS: risperiDONE 0.25 MG TABLET. PO SCH (19:26)
--- NOTE | 2016-10-04 21:26 | PDOC ---
Exam Hai Demential Exam: Hai Note: Please also refer to the separate dictated note~for this date of service dictated separately.~Patient seen individually. Discussed the patient with Nursing staff reviewed the chart.~Reviewed interim history and current functioning. Reviewed vital signs,~Labs/ Radiology~and current medications noted below. Continue current treatment with the changes noted in the dictated addendum note Assessment: Vital Signs: Vital Signs Date Time Temp Pulse Resp B/P (MAP) Pulse Ox O2 Delivery O2 Flow Rate FiO2 10/04/16 19:28 20 94 10/04/16 19:25 64 119/61 10/04/16 16:00 98.6 10/03/16 21:16 Room Air I&O Intake and Output 10/04/16 07:00 Intake Total 1320 ml Balance 1320 ml Intake Oral 1320 ml # Bowel Movements 2 Labs: Laboratory Tests Test 10/04/16 06:07 Prothrombin Time 33.0 SEC (9.4-11.4) H Prothrombin Time INR 3.2 (0.9-1.1) H Current Medications: Meds: Current Medications Acetaminophen (Tylenol) 650 mg PRN Q6HRS PRN PO PAIN / TEMP; Start 09/26/16 at 21:45 Multi-Ingredient Ointment (Analgesic [place]) 1 jessica PRN QID PRN TP MUSCLE PAIN; Start 09/26/16 at 21:45 Al Hydroxide/Mg Hydroxide (Mylanta Plus Xs) 15 ml PRN AFTMEALHC PRN PO DYSPEPSIA; Start 09/26/16 at 21:45 Magnesium Hydroxide (Milk Of Magnesia) 2,400 mg PRN QHS PRN PO CONSTIPATION; Start 09/26/16 at 21:45 Bupropion HCl (Wellbutrin Xl) 300 mg DAILY PO Last administered on 10/04/16 08 :32; Start 09/27/16 at 09:00 Clonazepam (KlonoPIN) 1 mg PRN BID PRN PO ANXIETY / AGITATION Last administered on 10/02/16 00:40; Start 09/26/16 at 22:00 [place] Carbonate (Eskalith) 450 mg DAILY PO Last administered on 10/04/16 08: 32; Start 09/27/16 at 09:00 Trazodone HCl (Desyrel) 200 mg HS PO Last administered on 10/04/16 19:25; Start 09/27/16 at 21:00 Venlafaxine HCl (Effexor) 150 mg BID PO ; Start 09/26/16 at 22:30; Stop at 22:30; Status DC Trazodone HCl (Desyrel) 200 mg 1X ONCE PO Last administered on 09/26/16 22:39 ; Start 09/26/16 at 22:35; Stop 09/26/16 at 22:36; Status DC Venlafaxine HCl (Effexor) 50 mg TID PO Last administered on 10/04/16 19:24; Start 09/27/16 at 09:00 Venlafaxine HCl (Effexor) 50 mg 1X ONCE PO Last administered on 09/26/16 22: 49; Start 09/26/16 at 22:50; Stop 09/26/16 at 22:51; Status DC Zolpidem Tartrate (Ambien) 10 mg PRN QHS PRN PO INSOMNIA Last administered on 19:58; Start 09/26/16 at 23:15; Stop 10/01/16 at 21:00; Status DC Acyclovir (Zovirax) 400 mg BID PO Last administered on 10/04/16 19:27; Start 09/27/16 at 09:00 Allopurinol (Zyloprim) 300 mg DAILY PO Last administered on 10/04/16 08:33; Start 09/27/16 at 09:00 Vitamin D (Vitamin D3) 1,000 unit DAILY PO Last administered on 10/04/16 08:30 ; Start 09/27/16 at 09:00 Colchicine (Colcrys) 0.6 mg TID PO Last administered on 10/04/16 19:24; Start 09/27/16 at 09:00 Ferrous Sulfate (Feosol) 324 mg DAILY PO Last administered on 09/28/16 07:57; Start 09/27/16 at 09:00; Stop 09/29/16 at 08:46; Status DC Lisinopril (Prinivil) 20 mg DAILY PO Last administered on 10/03/16 09:10; Start 09/27/16 at 09:00 Oxycodone/ Acetaminophen (Percocet 5/325) 2 tab QID PO Last administered on 19:28; Start 09/27/16 at 09:00 Pramipexole Dihydrochloride (miraPEX) 0.25 mg TID PO Last administered on 19:26; Start 09/27/16 at 09:00 Pravastatin Sodium (Pravachol) 20 mg HS PO Last administered on 10/04/16 19:26 ; Start 09/27/16 at 21:00 Risperidone (RisperDAL) 1 mg DAILY PO Last administered on 09/28/16 07:57; Start 09/27/16 at 09:00; Stop 09/29/16 at 00:29; Status DC Testosterone Cypionate (Depo-Testosterone) 200 mg QMONTH IM ; Start 09/27/16 at 09:00; Stop 09/27/16 at 14:01; Status DC Warfarin Sodium (Coumadin) 6 mg DAILYWSUP PO Last administered on 09/27/16 17: 00; Start 09/27/16 at 17:00; Stop 09/28/16 at 09:50; Status DC Zolpidem Tartrate (Ambien) 10 mg PRN QHS PRN PO INSOMNIA; Start 09/27/16 at 07: 30; Status UNV Carbidopa/Levodopa (Sinemet 10/100) 2 tab TID PO Last administered on 13:03; Start 09/27/16 at 09:00; Stop 09/30/16 at 18:27; Status DC Gabapentin (Neurontin) 600 mg TID PO Last administered on 10/04/16 19:25; Start 09/27/16 at 09:00 Meloxicam (Mobic) 15 mg DAILY PO Last administered on 10/04/16 08:32; Start at 09:00 Oxybutynin Chloride (Ditropan) 5 mg BID PO Last administered on 10/04/16 19:26 ; Start 09/27/16 at 09:00 Pantoprazole Sodium (Protonix) 40 mg DAILYAC PO Last administered on 10/04/16 08:32; Start 09/27/16 at 09:00 Testosterone Cypionate (Depo-Testosterone) 200 mg QMONTH IM ; Start 10/11/16 at 09:00; Stop 10/11/16 at 09:00; Status DC Warfarin Sodium (Coumadin Per Physician) 1 each PRN DAILY PRN [facility] SEE COMMENTS; Start 09/28/16 at 08:30; Stop 09/28/16 at 08:38; Status DC Warfarin Sodium (Coumadin Per Pharmacy) 1 each PRN DAILY PRN MC SEE COMMENTS Last administered on 10/04/16 13:36; Start 09/28/16 at 08:30 Warfarin Sodium (Coumadin) 7.5 mg 1X WARF ONCE PO Last administered on 18:12; Start 09/28/16 at 16:00; Stop 09/28/16 at 16:01; Status DC Buspirone HCl (Buspar) 5 mg BID@0900,1400 PO Last administered on 10/03/16 09: 10; Start 09/29/16 at 09:00; Stop 10/03/16 at 10:35; Status DC Prazosin HCl (Minipress) 1 mg QHS PO Last administered on 10/01/16 19:22; Start 09/29/16 at 21:00; Stop 10/02/16 at 19:10; Status DC Risperidone (RisperDAL) 0.75 mg QHS PO Last administered on 09/30/16 21:10; Start 09/29/16 at 21:00; Stop 10/01/16 at 20:59; Status DC Risperidone (RisperDAL) 0.5 mg QHS PO Last administered on 10/02/16 19:12; Start 10/01/16 at 21:00; Stop 10/03/16 at 20:59; Status DC Risperidone (RisperDAL) 0.25 mg QHS PO Last administered on 10/04/16 19:26; Start 10/03/16 at 21:00; Stop 10/05/16 at 20:59 Warfarin Sodium (Coumadin) 7.5 mg 1X WARF ONCE PO Last administered on 16:55; Start 09/29/16 at 16:00; Stop 09/29/16 at 16:01; Status DC Ferrous Sulfate (Feosol) 325 mg DAILY PO Last administered on 10/04/16 08:30; Start 09/29/16 at 09:00 Warfarin Sodium (Coumadin) 7.5 mg 1X WARF ONCE PO Last administered on 16:02; Start 09/30/16 at 16:00; Stop 09/30/16 at 16:01; Status DC Carbidopa/Levodopa (Sinemet 25/100) 2 tab TID PO Last administered on 19:24; Start 09/30/16 at 21:00 Warfarin Sodium (Coumadin) 7.5 mg 1X WARF ONCE PO Last administered on 16:57; Start 10/01/16 at 16:00; Stop 10/01/16 at 16:01; Status DC Zolpidem Tartrate (Ambien) 10 mg HS PO Last administered on 10/01/16 21:34; Start 10/01/16 at 21:00; Stop 10/02/16 at 19:10; Status DC Zolpidem Tartrate (Ambien) 10 mg PRN QHS PRN PO INSOMNIA; Start 10/01/16 at 18: 45; Stop 10/02/16 at 19:10; Status DC Warfarin Sodium (Coumadin) 10 mg 1X WARF ONCE PO Last administered on 17:17; Start 10/02/16 at 16:00; Stop 10/02/16 at 16:01; Status DC Prazosin HCl (Minipress) 2 mg QHS PO Last administered on 10/04/16 19:25; Start 10/02/16 at 21:00 Melatonin 3 mg PRN QHS PRN PO INSOMNIA Last administered on 10/02/16 19:42; Start 10/02/16 at 19:15; Stop 10/03/16 at 07:16; Status DC Melatonin 3 mg HS PO ; Start 10/02/16 at 21:00; Stop 10/02/16 at 21:00; Status DC Melatonin 3 mg HS PO Last administered on 10/04/16 19:25; Start 10/03/16 at 21 :00 Buspirone HCl (Buspar) 5 mg TID PO Last administered on 10/04/16 19:26; Start 10/03/16 at 14:00 Warfarin Sodium (Coumadin) 7.5 mg 1X WARF ONCE PO Last administered on 17:13; Start 10/03/16 at 16:00; Stop 10/03/16 at 16:01; Status DC Warfarin Sodium (Coumadin) 6 mg 1X WARF ONCE PO Last administered on 17:15; Start 10/04/16 at 16:00; Stop 10/04/16 at 16:01; Status DC Active Scripts Active Reported Colcrys (Colchicine) 0.6 Mg Tablet 0.6 Mg PO TID Coumadin (Warfarin Sodium) 6 Mg Tablet 6 Mg PO DAILYWSUP Testosterone Cypionate 200 Mg/1 Ml Vial 200 Mg IM QMONTH Aciphex (Rabeprazole Sodium) 20 Mg Tablet.dr 20 Mg PO BID Pravastatin Sodium 20 Mg Tablet 20 Mg PO HS Percocet 5-325 Mg Tablet (Oxycodone Hcl/Acetaminophen) 1 Each Tablet 2 Tab PO QID Nabumetone 750 Mg Tablet 750 Mg PO BID Lisinopril 20 Mg Tablet 20 Mg PO DAILY Ferrous Sulfate 325 Mg Tablet 324 Mg PO DAILY Carbidopa-Levo 10-100 Mg Odt (Carbidopa/Levodopa) 1 Each Tab.rapdis 2 Tab PO TID Risperidone 1 Mg Tablet 1 Mg PO DAILY Ditropan Xl (Oxybutynin Chloride) 10 Mg Tab.er.24 10 Mg PO DAILY Zolpidem Tartrate 10 Mg Tablet 10 Mg PO PRN QHS PRN Venlafaxine Hcl Er (Venlafaxine Hcl) 75 Mg Cap.er.24h 150 Mg PO BID Trazodone Hcl 100 Mg Tablet 200 Mg PO HS [place] Carbonate 450 Mg Tablet.er 450 Mg PO DAILY Clonazepam 1 Mg Tablet 1 Mg PO PRN BID PRN Vitamin D3 (Cholecalciferol (Vitamin D3)) 1,000 Unit Tablet 1,000 Unit PO DAILY Wellbutrin Xl (Bupropion Hcl) 300 Mg Tab.er.24h 300 Mg PO DAILY Acyclovir 200 Mg Capsule 400 Mg PO BID Zyloprim (Allopurinol) 300 Mg Tablet 300 Mg PO DAILY Mirapex (Pramipexole Di-Hcl) 0.25 Mg Tablet 0.25 Mg PO TID Gabapentin 600 Mg Tablet 600 Mg PO TID Diagnosis: Problems: (1) Anxiety disorder (2) Impulse control disorder (3) Major depressive disorder, recurrent episode (4) Parkinson's disease (5) Psychosis, atypical ROLA VARGAS MD Oct 04, 2016 21:26
[2016-10-05 05:53] VITALS: BP 140/78
[2016-10-05] MEDS: PANTOPRAZOLE 40 MG TABLET. PO SCH (08:31)
[2016-10-05] MEDS: LITHIUM CARBONATE ER 450 MG TABLET.ER PO SCH (08:32)
[2016-10-05] MEDS: VENLAFAXINE 50 MG TABLET. PO SCH ×3 (08:32→19:16)
[2016-10-05] MEDS: OXYBUTYNIN CHLORIDE 5 MG TABLET PO SCH ×2 (08:32→19:16)
[2016-10-05] MEDS: busPIRone 5 MG TABLET. PO SCH ×3 (08:32→19:16)
[2016-10-05] MEDS: COLCHICINE 0.6 MG TABLET PO SCH ×3 (08:32→19:16)
[2016-10-05] MEDS: PRAMIPEXOLE 0.25 MG TABLET. PO SCH ×3 (08:33→19:16)
[2016-10-05] MEDS: oxyCODONE/APAP 5/325 1 TAB TABLET PO SCH ×4 (08:33→19:18)
[2016-10-05] MEDS: MELOXICAM 15 MG TABLET. PO SCH (08:33)
[2016-10-05] MEDS: FERROUS SULFATE 325 MG TABLET PO SCH (08:33)
[2016-10-05] MEDS: GABAPENTIN 300 MG CAPSULE. PO SCH ×3 (08:33→19:14)
[2016-10-05] MEDS: ALLOPURINOL 300 MG TABLET. PO SCH (08:34)
[2016-10-05] MEDS: CARBIDOPA/LEVODOPA 25/100MG TABLET PO SCH ×3 (08:34→19:16)
[2016-10-05] MEDS: LISINOPRIL 20 MG TABLET PO SCH (08:34)
[2016-10-05] MEDS: CHOLECALCIFEROL (VITAMIN D3) 1,000 UNIT TABLET PO SCH (08:34)
[2016-10-05] MEDS: buPROPion XL 300 MG TAB.ER.24H. PO SCH (08:34)
[2016-10-05] MEDS: ACYCLOVIR 200 MG CAPSULE PO SCH ×2 (08:35→19:18)
--- NOTE | 2016-10-05 12:08 | PN ---
DATE: 10/04/2016 This is a late entry for 10/04/2016 and covers elements not covered in my initial note of 10/04/2016. SUBJECTIVE: The patient was seen individually evening of 10/04/2016. The patient slept 1-1/2 hours previous night, has done reasonably well the previous night and then during the day on 10/04/2016. Little anxious, but no overt psychotic symptoms. No suicidal or homicidal ideation. REVIEW OF SYSTEMS: Impaired ambulation. No CV, , pulmonary, eye, ENT system symptoms on review. Reliability poor. MENTAL STATUS EXAM: Oriented to himself and situation. Speech is coherent, abstraction fair, computation impaired, language function intact, attention span short. Mood and affect showing improvement, less labile. LABORATORY DATA: Reviewed. IMPRESSION: Unchanged from initial note. PLAN: Continue current psychotropics, prazosin was increased and we will make further adjustments as clinically indicated. Risperdal is being tapered. ROLA VARGAS MD DR: MILKA/carmela JOB#: [id number] / [id number]
[2016-10-05 15:46] VITALS: BP 113/64
[2016-10-05] MEDS ORDERED: WARFARIN 6 MG TABLET. PO ONE (16:00)
[2016-10-05] MEDS: PRAVASTATIN 20 MG TABLET. PO SCH (19:14)
[2016-10-05] MEDS: PRAZOSIN 1 MG CAPSULE. PO SCH (19:15)
[2016-10-05] MEDS: traZODone 100 MG TABLET. PO SCH (19:16)
[2016-10-05] MEDS: risperiDONE 0.25 MG TABLET. PO SCH (19:16)
[2016-10-05] MEDS: MELATONIN 3 MG TABLET PO SCH (19:16)
--- NOTE | 2016-10-05 21:32 | PDOC ---
Exam Hai Demential Exam: Hai Note: Please also refer to the separate dictated note~for this date of service dictated separately.~Patient seen individually. Discussed the patient with Nursing staff reviewed the chart.~Reviewed interim history and current functioning. Reviewed vital signs,~Labs/ Radiology~and current medications noted below. Continue current treatment with the changes noted in the dictated addendum note Assessment: Vital Signs: Vital Signs Date Time Temp Pulse Resp B/P (MAP) Pulse Ox O2 Delivery O2 Flow Rate FiO2 10/05/16 19:18 20 10/05/16 19:15 68 113/64 10/05/16 15:46 98.4 94 10/04/16 20:28 Room Air I&O Intake and Output 10/05/16 07:00 Intake Total 1320 ml Balance 1320 ml Intake Oral 1320 ml Labs: Laboratory Tests Test 10/05/16 06:16 Prothrombin Time 29.7 SEC (9.4-11.4) H Prothrombin Time INR 2.9 (0.9-1.1) H Current Medications: Meds: Current Medications Acetaminophen (Tylenol) 650 mg PRN Q6HRS PRN PO PAIN / TEMP; Start 09/26/16 at 21:45 Multi-Ingredient Ointment (Analgesic [place]) 1 jessica PRN QID PRN TP MUSCLE PAIN; Start 09/26/16 at 21:45 Al Hydroxide/Mg Hydroxide (Mylanta Plus Xs) 15 ml PRN AFTMEALHC PRN PO DYSPEPSIA; Start 09/26/16 at 21:45 Magnesium Hydroxide (Milk Of Magnesia) 2,400 mg PRN QHS PRN PO CONSTIPATION; Start 09/26/16 at 21:45 Bupropion HCl (Wellbutrin Xl) 300 mg DAILY PO Last administered on 10/05/16 08 :34; Start 09/27/16 at 09:00 Clonazepam (KlonoPIN) 1 mg PRN BID PRN PO ANXIETY / AGITATION Last administered on 10/02/16 00:40; Start 09/26/16 at 22:00 [place] Carbonate (Eskalith) 450 mg DAILY PO Last administered on 10/05/16 08: 32; Start 09/27/16 at 09:00 Trazodone HCl (Desyrel) 200 mg HS PO Last administered on 10/05/16 19:16; Start 09/27/16 at 21:00 Venlafaxine HCl (Effexor) 150 mg BID PO ; Start 09/26/16 at 22:30; Stop at 22:30; Status DC Trazodone HCl (Desyrel) 200 mg 1X ONCE PO Last administered on 09/26/16 22:39 ; Start 09/26/16 at 22:35; Stop 09/26/16 at 22:36; Status DC Venlafaxine HCl (Effexor) 50 mg TID PO Last administered on 10/05/16 19:16; Start 09/27/16 at 09:00 Venlafaxine HCl (Effexor) 50 mg 1X ONCE PO Last administered on 09/26/16 22: 49; Start 09/26/16 at 22:50; Stop 09/26/16 at 22:51; Status DC Zolpidem Tartrate (Ambien) 10 mg PRN QHS PRN PO INSOMNIA Last administered on 19:58; Start 09/26/16 at 23:15; Stop 10/01/16 at 21:00; Status DC Acyclovir (Zovirax) 400 mg BID PO Last administered on 10/05/16 19:18; Start 09/27/16 at 09:00 Allopurinol (Zyloprim) 300 mg DAILY PO Last administered on 10/05/16 08:34; Start 09/27/16 at 09:00 Vitamin D (Vitamin D3) 1,000 unit DAILY PO Last administered on 10/05/16 08:34 ; Start 09/27/16 at 09:00 Colchicine (Colcrys) 0.6 mg TID PO Last administered on 10/05/16 19:16; Start 09/27/16 at 09:00 Ferrous Sulfate (Feosol) 324 mg DAILY PO Last administered on 09/28/16 07:57; Start 09/27/16 at 09:00; Stop 09/29/16 at 08:46; Status DC Lisinopril (Prinivil) 20 mg DAILY PO Last administered on 10/05/16 08:34; Start 09/27/16 at 09:00 Oxycodone/ Acetaminophen (Percocet 5/325) 2 tab QID PO Last administered on 19:18; Start 09/27/16 at 09:00 Pramipexole Dihydrochloride (miraPEX) 0.25 mg TID PO Last administered on 19:16; Start 09/27/16 at 09:00 Pravastatin Sodium (Pravachol) 20 mg HS PO Last administered on 10/05/16 19:14 ; Start 09/27/16 at 21:00 Risperidone (RisperDAL) 1 mg DAILY PO Last administered on 09/28/16 07:57; Start 09/27/16 at 09:00; Stop 09/29/16 at 00:29; Status DC Testosterone Cypionate (Depo-Testosterone) 200 mg QMONTH IM ; Start 09/27/16 at 09:00; Stop 09/27/16 at 14:01; Status DC Warfarin Sodium (Coumadin) 6 mg DAILYWSUP PO Last administered on 09/27/16 17: 00; Start 09/27/16 at 17:00; Stop 09/28/16 at 09:50; Status DC Zolpidem Tartrate (Ambien) 10 mg PRN QHS PRN PO INSOMNIA; Start 09/27/16 at 07: 30; Status UNV Carbidopa/Levodopa (Sinemet 10/100) 2 tab TID PO Last administered on 13:03; Start 09/27/16 at 09:00; Stop 09/30/16 at 18:27; Status DC Gabapentin (Neurontin) 600 mg TID PO Last administered on 10/05/16 19:14; Start 09/27/16 at 09:00 Meloxicam (Mobic) 15 mg DAILY PO Last administered on 10/05/16 08:33; Start at 09:00 Oxybutynin Chloride (Ditropan) 5 mg BID PO Last administered on 10/05/16 19:16 ; Start 09/27/16 at 09:00 Pantoprazole Sodium (Protonix) 40 mg DAILYAC PO Last administered on 10/05/16 08:31; Start 09/27/16 at 09:00 Testosterone Cypionate (Depo-Testosterone) 200 mg QMONTH IM ; Start 10/11/16 at 09:00; Stop 10/11/16 at 09:00; Status DC Warfarin Sodium (Coumadin Per Physician) 1 each PRN DAILY PRN MC SEE COMMENTS; Start 09/28/16 at 08:30; Stop 09/28/16 at 08:38; Status DC Warfarin Sodium (Coumadin Per Pharmacy) 1 each PRN DAILY PRN MC SEE COMMENTS Last administered on 10/05/16 11:44; Start 09/28/16 at 08:30 Warfarin Sodium (Coumadin) 7.5 mg 1X WARF ONCE PO Last administered on 18:12; Start 09/28/16 at 16:00; Stop 09/28/16 at 16:01; Status DC Buspirone HCl (Buspar) 5 mg BID@0900,1400 PO Last administered on 10/03/16 09: 10; Start 09/29/16 at 09:00; Stop 10/03/16 at 10:35; Status DC Prazosin HCl (Minipress) 1 mg QHS PO Last administered on 10/01/16 19:22; Start 09/29/16 at 21:00; Stop 10/02/16 at 19:10; Status DC Risperidone (RisperDAL) 0.75 mg QHS PO Last administered on 09/30/16 21:10; Start 09/29/16 at 21:00; Stop 10/01/16 at 20:59; Status DC Risperidone (RisperDAL) 0.5 mg QHS PO Last administered on 10/02/16 19:12; Start 10/01/16 at 21:00; Stop 10/03/16 at 20:59; Status DC Risperidone (RisperDAL) 0.25 mg QHS PO Last administered on 10/05/16 19:16; Start 10/03/16 at 21:00; Stop 10/05/16 at 21:00; Status DC Warfarin Sodium (Coumadin) 7.5 mg 1X WARF ONCE PO Last administered on 16:55; Start 09/29/16 at 16:00; Stop 09/29/16 at 16:01; Status DC Ferrous Sulfate (Feosol) 325 mg DAILY PO Last administered on 10/05/16 08:33; Start 09/29/16 at 09:00 Warfarin Sodium (Coumadin) 7.5 mg 1X WARF ONCE PO Last administered on 16:02; Start 09/30/16 at 16:00; Stop 09/30/16 at 16:01; Status DC Carbidopa/Levodopa (Sinemet /) 2 tab TID PO Last administered on 19:16; Start 09/30/16 at 21:00 Warfarin Sodium (Coumadin) 7.5 mg 1X WARF ONCE PO Last administered on 16:57; Start 10/01/16 at 16:00; Stop 10/01/16 at 16:01; Status DC Zolpidem Tartrate (Ambien) 10 mg HS PO Last administered on 10/01/16 21:34; Start 10/01/16 at 21:00; Stop 10/02/16 at 19:10; Status DC Zolpidem Tartrate (Ambien) 10 mg PRN QHS PRN PO INSOMNIA; Start 10/01/16 at 18: 45; Stop 10/02/16 at 19:10; Status DC Warfarin Sodium (Coumadin) 10 mg 1X WARF ONCE PO Last administered on 17:17; Start 10/02/16 at 16:00; Stop 10/02/16 at 16:01; Status DC Prazosin HCl (Minipress) 2 mg QHS PO Last administered on 10/04/16 19:25; Start 10/02/16 at 21:00; Stop 10/05/16 at 18:46; Status DC Melatonin 3 mg PRN QHS PRN PO INSOMNIA Last administered on 10/02/16 19:42; Start 10/02/16 at 19:15; Stop 10/03/16 at 07:16; Status DC Melatonin 3 mg HS PO ; Start 10/02/16 at 21:00; Stop 10/02/16 at 21:00; Status DC Melatonin 3 mg HS PO Last administered on 10/05/16 19:16; Start 10/03/16 at 21 :00 Buspirone HCl (Buspar) 5 mg TID PO Last administered on 10/05/16 19:16; Start 10/03/16 at 14:00 Warfarin Sodium (Coumadin) 7.5 mg 1X WARF ONCE PO Last administered on 17:13; Start 10/03/16 at 16:00; Stop 10/03/16 at 16:01; Status DC Warfarin Sodium (Coumadin) 6 mg 1X WARF ONCE PO Last administered on 17:15; Start 10/04/16 at 16:00; Stop 10/04/16 at 16:01; Status DC Warfarin Sodium (Coumadin) 6 mg 1X WARF ONCE PO Last administered on 16:56; Start 10/05/16 at 16:00; Stop 10/05/16 at 16:01; Status DC Prazosin HCl (Minipress) 3 mg QHS PO Last administered on 10/05/16 19:15; Start 10/05/16 at 21:00 Active Scripts Active Reported Colcrys (Colchicine) 0.6 Mg Tablet 0.6 Mg PO TID Coumadin (Warfarin Sodium) 6 Mg Tablet 6 Mg PO DAILYWSUP Testosterone Cypionate 200 Mg/1 Ml Vial 200 Mg IM QMONTH Aciphex (Rabeprazole Sodium) 20 Mg Tablet.dr 20 Mg PO BID Pravastatin Sodium 20 Mg Tablet 20 Mg PO HS Percocet 5-325 Mg Tablet (Oxycodone Hcl/Acetaminophen) 1 Each Tablet 2 Tab PO QID Nabumetone 750 Mg Tablet 750 Mg PO BID Lisinopril 20 Mg Tablet 20 Mg PO DAILY Ferrous Sulfate 325 Mg Tablet 324 Mg PO DAILY Carbidopa-Levo 10-100 Mg Odt (Carbidopa/Levodopa) 1 Each Tab.rapdis 2 Tab PO TID Risperidone 1 Mg Tablet 1 Mg PO DAILY Ditropan Xl (Oxybutynin Chloride) 10 Mg Tab.er.24 10 Mg PO DAILY Zolpidem Tartrate 10 Mg Tablet 10 Mg PO PRN QHS PRN Venlafaxine Hcl Er (Venlafaxine Hcl) 75 Mg Cap.er.24h 150 Mg PO BID Trazodone Hcl 100 Mg Tablet 200 Mg PO HS [place] Carbonate 450 Mg Tablet.er 450 Mg PO DAILY Clonazepam 1 Mg Tablet 1 Mg PO PRN BID PRN Vitamin D3 (Cholecalciferol (Vitamin D3)) 1,000 Unit Tablet 1,000 Unit PO DAILY Wellbutrin Xl (Bupropion Hcl) 300 Mg Tab.er.24h 300 Mg PO DAILY Acyclovir 200 Mg Capsule 400 Mg PO BID Zyloprim (Allopurinol) 300 Mg Tablet 300 Mg PO DAILY Mirapex (Pramipexole Di-Hcl) 0.25 Mg Tablet 0.25 Mg PO TID Gabapentin 600 Mg Tablet 600 Mg PO TID Diagnosis: Problems: (1) Anxiety disorder (2) Impulse control disorder (3) Major depressive disorder, recurrent episode ROLA VARGAS MD Oct 05, 2016 21:32
[2016-10-06 05:44] VITALS: BP 106/67
[2016-10-06] MEDS: busPIRone 5 MG TABLET. PO SCH ×3 (07:38→20:14)
[2016-10-06] MEDS: PANTOPRAZOLE 40 MG TABLET. PO SCH (07:38)
[2016-10-06] MEDS: PRAMIPEXOLE 0.25 MG TABLET. PO SCH ×3 (07:39→20:14)
[2016-10-06] MEDS: FERROUS SULFATE 325 MG TABLET PO SCH (07:39)
[2016-10-06] MEDS: VENLAFAXINE 50 MG TABLET. PO SCH ×3 (07:39→20:14)
[2016-10-06] MEDS: COLCHICINE 0.6 MG TABLET PO SCH ×3 (07:39→20:14)
[2016-10-06] MEDS: MELOXICAM 15 MG TABLET. PO SCH (07:39)
[2016-10-06] MEDS: OXYBUTYNIN CHLORIDE 5 MG TABLET PO SCH ×2 (07:39→20:14)
[2016-10-06] MEDS: LITHIUM CARBONATE ER 450 MG TABLET.ER PO SCH (07:39)
[2016-10-06] MEDS: GABAPENTIN 300 MG CAPSULE. PO SCH ×3 (07:40→20:14)
[2016-10-06] MEDS: oxyCODONE/APAP 5/325 1 TAB TABLET PO SCH ×4 (07:40→20:16)
[2016-10-06] MEDS: CHOLECALCIFEROL (VITAMIN D3) 1,000 UNIT TABLET PO SCH (07:45)
[2016-10-06] MEDS: buPROPion XL 300 MG TAB.ER.24H. PO SCH (07:45)
[2016-10-06] MEDS: CARBIDOPA/LEVODOPA 25/100MG TABLET PO SCH ×3 (07:45→20:14)
[2016-10-06] MEDS: ALLOPURINOL 300 MG TABLET. PO SCH (07:46)
[2016-10-06] MEDS: ACYCLOVIR 200 MG CAPSULE PO SCH ×2 (07:46→20:17)
[2016-10-06 08:00] VITALS: BP 108/44
[2016-10-06 08:25] VITALS: BP 143/75
[2016-10-06] MEDS ORDERED: CALCIUM CARBONATE 500 MG TAB.CHEW PO ONE (08:45)
[2016-10-06] MEDS: LISINOPRIL 20 MG TABLET PO SCH (09:00)
--- NOTE | 2016-10-06 11:36 | PN ---
DATE: 10/05/2016 PSYCHIATRIC PROGRESS NOTE This is a late entry 10/05/2016, covers elements not covered in my initial note of 10/05/2016. SUBJECTIVE: The patient did well the previous evening, has had a good day per nursing staff, but after the visited him earlier evening of 10/05/2016, she shared with the nursing staff that he was quite paranoid the previous evening and said there were people shooting and other things happening on the unit. When I questioned the patient on this, he denied it. REVIEW OF SYSTEMS: Ambulation impaired. No CV, , pulmonary, eye system symptoms on review. MENTAL STATUS EXAM: Reasonably oriented. Speech is coherent, abstraction fair, computation impaired, language function intact. Mood and affect showing improvement. LABORATORY DATA: Reviewed. IMPRESSION: Post traumatic stress disorder, major depressive disorder with psychotic features; psychotic disorder, unspecified; impulse control disorder; anxiety disorder, unspecified. PLAN: Increase prazosin to 3 mg at bedtime. Maintain rest of the psychotropics mentioned in my initial note. MAN Elton VARGAS MD DR: MILKA/carmela JOB#: [id number] / [id number]
--- NOTE | 2016-10-06 12:34 | EKG ---
[address] [id number] Test Date: 2016-10-06 Test Time: 08:31:41 Pat Name: WALTER MOSS Department: Room: [facility] 1 Gender: M [employer] Supervisor: ALDEN : 1945 Requested By: GIBSON CURRIE Order Number: [id number] Reading MD: Ger Byrd Measurements Intervals [place] Rate: 40 P: MA: QRS: 52 QRSD: 92 T: 34 QT: 444 QTc: 364 Interpretive Statements SINUS BRACHYCARDIA LOW LIMB LEAD VOLTAGE QRS(T) CONTOUR ABNORMALITY CONSIDER ANTEROLATERAL MYOCARDIAL DAMAGE ABNORMAL ECG Electronically Signed On 10-06-2016 15:11:30 CDT by Ger Byrd
[2016-10-06] MEDS: CYANOCOBALAMIN (VITAMIN B-12) 250 MCG TABLET PO SCH (13:15)
[2016-10-06] MEDS ORDERED: WARFARIN 6 MG TABLET. PO ONE (16:00)
[2016-10-06 16:11] VITALS: BP 102/61
--- NOTE | 2016-10-06 19:38 | PDOC ---
Exam Hai Demential Exam: Hai Note: Please also refer to the separate dictated note~for this date of service dictated separately.~Patient seen individually. Discussed the patient with Nursing staff reviewed the chart.~Reviewed interim history and current functioning. Reviewed vital signs,~Labs/ Radiology~and current medications noted below. Continue current treatment with the changes noted in the dictated addendum note Assessment: Vital Signs: Vital Signs Date Time Temp Pulse Resp B/P (MAP) Pulse Ox O2 Delivery O2 Flow Rate FiO2 10/06/16 18:13 18 10/06/16 16:11 98.8 52 102/61 (75) 94 10/04/16 20:28 Room Air I&O Intake and Output 10/06/16 07:00 Intake Total 960 ml Balance 960 ml Intake Oral 960 ml # Bowel Movements 3 Labs: Laboratory Tests Test 10/06/16 06:23 10/06/16 08:09 Prothrombin Time 30.3 SEC (9.4-11.4) H Prothrombin Time INR 2.9 (0.9-1.1) H Creatine Kinase 76 U/L (39-308) Creatine Kinase MB (Mass) 0.6 ng/mL (0.0-3.6) Creatine Kinase MB Relative Index 0.8 % (0-4) Troponin I Quantitative < 0.017 ng/mL (0-0.055) Current Medications: Meds: Current Medications Acetaminophen (Tylenol) 650 mg PRN Q6HRS PRN PO PAIN / TEMP; Start 09/26/16 at 21:45 Multi-Ingredient Ointment (Analgesic [place]) 1 jessica PRN QID PRN TP MUSCLE PAIN; Start 09/26/16 at 21:45 Al Hydroxide/Mg Hydroxide (Mylanta Plus Xs) 15 ml PRN AFTMEALHC PRN PO DYSPEPSIA; Start 09/26/16 at 21:45 Magnesium Hydroxide (Milk Of Magnesia) 2,400 mg PRN QHS PRN PO CONSTIPATION; Start 09/26/16 at 21:45 Bupropion HCl (Wellbutrin Xl) 300 mg DAILY PO Last administered on 10/06/16 07 :45; Start 09/27/16 at 09:00 Clonazepam (KlonoPIN) 1 mg PRN BID PRN PO ANXIETY / AGITATION Last administered on 10/02/16 00:40; Start 09/26/16 at 22:00 [place] Carbonate (Eskalith) 450 mg DAILY PO Last administered on 10/06/16 07: 39; Start 09/27/16 at 09:00 Trazodone HCl (Desyrel) 200 mg HS PO Last administered on 10/05/16 19:16; Start 09/27/16 at 21:00 Venlafaxine HCl (Effexor) 150 mg BID PO ; Start 09/26/16 at 22:30; Stop at 22:30; Status DC Trazodone HCl (Desyrel) 200 mg 1X ONCE PO Last administered on 09/26/16 22:39 ; Start 09/26/16 at 22:35; Stop 09/26/16 at 22:36; Status DC Venlafaxine HCl (Effexor) 50 mg TID PO Last administered on 10/06/16 13:15; Start 09/27/16 at 09:00 Venlafaxine HCl (Effexor) 50 mg 1X ONCE PO Last administered on 09/26/16 22: 49; Start 09/26/16 at 22:50; Stop 09/26/16 at 22:51; Status DC Zolpidem Tartrate (Ambien) 10 mg PRN QHS PRN PO INSOMNIA Last administered on 19:58; Start 09/26/16 at 23:15; Stop 10/01/16 at 21:00; Status DC Acyclovir (Zovirax) 400 mg BID PO Last administered on 10/06/16 07:46; Start 09/27/16 at 09:00 Allopurinol (Zyloprim) 300 mg DAILY PO Last administered on 10/06/16 07:46; Start 09/27/16 at 09:00 Vitamin D (Vitamin D3) 1,000 unit DAILY PO Last administered on 10/06/16 07:45 ; Start 09/27/16 at 09:00 Colchicine (Colcrys) 0.6 mg TID PO Last administered on 10/06/16 13:15; Start 09/27/16 at 09:00 Ferrous Sulfate (Feosol) 324 mg DAILY PO Last administered on 09/28/16 07:57; Start 09/27/16 at 09:00; Stop 09/29/16 at 08:46; Status DC Lisinopril (Prinivil) 20 mg DAILY PO Last administered on 10/06/16 09:00; Start 09/27/16 at 09:00 Oxycodone/ Acetaminophen (Percocet 5/325) 2 tab QID PO Last administered on 17:12; Start 09/27/16 at 09:00 Pramipexole Dihydrochloride (miraPEX) 0.25 mg TID PO Last administered on 13:15; Start 09/27/16 at 09:00 Pravastatin Sodium (Pravachol) 20 mg HS PO Last administered on 10/05/16 19:14 ; Start 09/27/16 at 21:00 Risperidone (RisperDAL) 1 mg DAILY PO Last administered on 09/28/16 07:57; Start 09/27/16 at 09:00; Stop 09/29/16 at 00:29; Status DC Testosterone Cypionate (Depo-Testosterone) 200 mg QMONTH IM ; Start 09/27/16 at 09:00; Stop 09/27/16 at 14:01; Status DC Warfarin Sodium (Coumadin) 6 mg DAILYWSUP PO Last administered on 09/27/16 17: 00; Start 09/27/16 at 17:00; Stop 09/28/16 at 09:50; Status DC Zolpidem Tartrate (Ambien) 10 mg PRN QHS PRN PO INSOMNIA; Start 09/27/16 at 07: 30; Status UNV Carbidopa/Levodopa (Sinemet 10/100) 2 tab TID PO Last administered on 13:03; Start 09/27/16 at 09:00; Stop 09/30/16 at 18:27; Status DC Gabapentin (Neurontin) 600 mg TID PO Last administered on 10/06/16 13:15; Start 09/27/16 at 09:00 Meloxicam (Mobic) 15 mg DAILY PO Last administered on 10/06/16 07:39; Start at 09:00 Oxybutynin Chloride (Ditropan) 5 mg BID PO Last administered on 10/06/16 07:39 ; Start 09/27/16 at 09:00 Pantoprazole Sodium (Protonix) 40 mg DAILYAC PO Last administered on 10/06/16 07:38; Start 09/27/16 at 09:00 Testosterone Cypionate (Depo-Testosterone) 200 mg QMONTH IM ; Start 10/11/16 at 09:00; Stop 10/11/16 at 09:00; Status DC Warfarin Sodium (Coumadin Per Physician) 1 each PRN DAILY PRN MC SEE COMMENTS; Start 09/28/16 at 08:30; Stop 09/28/16 at 08:38; Status DC Warfarin Sodium (Coumadin Per Pharmacy) 1 each PRN DAILY PRN MC SEE COMMENTS Last administered on 10/06/16 10:25; Start 09/28/16 at 08:30 Warfarin Sodium (Coumadin) 7.5 mg 1X WARF ONCE PO Last administered on 18:12; Start 09/28/16 at 16:00; Stop 09/28/16 at 16:01; Status DC Buspirone HCl (Buspar) 5 mg BID@0900,1400 PO Last administered on 10/03/16 09: 10; Start 09/29/16 at 09:00; Stop 10/03/16 at 10:35; Status DC Prazosin HCl (Minipress) 1 mg QHS PO Last administered on 10/01/16 19:22; Start 09/29/16 at 21:00; Stop 10/02/16 at 19:10; Status DC Risperidone (RisperDAL) 0.75 mg QHS PO Last administered on 09/30/16 21:10; Start 09/29/16 at 21:00; Stop 10/01/16 at 20:59; Status DC Risperidone (RisperDAL) 0.5 mg QHS PO Last administered on 10/02/16 19:12; Start 10/01/16 at 21:00; Stop 10/03/16 at 20:59; Status DC Risperidone (RisperDAL) 0.25 mg QHS PO Last administered on 10/05/16 19:16; Start 10/03/16 at 21:00; Stop 10/05/16 at 21:00; Status DC Warfarin Sodium (Coumadin) 7.5 mg 1X WARF ONCE PO Last administered on 16:55; Start 09/29/16 at 16:00; Stop 09/29/16 at 16:01; Status DC Ferrous Sulfate (Feosol) 325 mg DAILY PO Last administered on 10/06/16 07:39; Start 09/29/16 at 09:00 Warfarin Sodium (Coumadin) 7.5 mg 1X WARF ONCE PO Last administered on 16:02; Start 09/30/16 at 16:00; Stop 09/30/16 at 16:01; Status DC Carbidopa/Levodopa (Sinemet 25/100) 2 tab TID PO Last administered on 13:16; Start 09/30/16 at 21:00 Warfarin Sodium (Coumadin) 7.5 mg 1X WARF ONCE PO Last administered on 16:57; Start 10/01/16 at 16:00; Stop 10/01/16 at 16:01; Status DC Zolpidem Tartrate (Ambien) 10 mg HS PO Last administered on 10/01/16 21:34; Start 10/01/16 at 21:00; Stop 10/02/16 at 19:10; Status DC Zolpidem Tartrate (Ambien) 10 mg PRN QHS PRN PO INSOMNIA; Start 10/01/16 at 18: 45; Stop 10/02/16 at 19:10; Status DC Warfarin Sodium (Coumadin) 10 mg 1X WARF ONCE PO Last administered on 17:17; Start 10/02/16 at 16:00; Stop 10/02/16 at 16:01; Status DC Prazosin HCl (Minipress) 2 mg QHS PO Last administered on 10/04/16 19:25; Start 10/02/16 at 21:00; Stop 10/05/16 at 18:46; Status DC Melatonin 3 mg PRN QHS PRN PO INSOMNIA Last administered on 10/02/16 19:42; Start 10/02/16 at 19:15; Stop 10/03/16 at 07:16; Status DC Melatonin 3 mg HS PO ; Start 10/02/16 at 21:00; Stop 10/02/16 at 21:00; Status DC Melatonin 3 mg HS PO Last administered on 10/05/16 19:16; Start 10/03/16 at 21 :00 Buspirone HCl (Buspar) 5 mg TID PO Last administered on 10/06/16 13:15; Start 10/03/16 at 14:00 Warfarin Sodium (Coumadin) 7.5 mg 1X WARF ONCE PO Last administered on 17:13; Start 10/03/16 at 16:00; Stop 10/03/16 at 16:01; Status DC Warfarin Sodium (Coumadin) 6 mg 1X WARF ONCE PO Last administered on 17:15; Start 10/04/16 at 16:00; Stop 10/04/16 at 16:01; Status DC Warfarin Sodium (Coumadin) 6 mg 1X WARF ONCE PO Last administered on 16:56; Start 10/05/16 at 16:00; Stop 10/05/16 at 16:01; Status DC Prazosin HCl (Minipress) 3 mg QHS PO Last administered on 10/05/16 19:15; Start 10/05/16 at 21:00 Cyanocobalamin (Vitamin B-12) 250 mcg DAILY PO Last administered on 10/06/16 13:15; Start 10/06/16 at 09:00 Calcium Carbonate/ Glycine (Tums) 500 mg 1X ONCE PO Last administered on 08:59; Start 10/06/16 at 08:45; Stop 10/06/16 at 08:46; Status DC Warfarin Sodium (Coumadin) 6 mg 1X WARF ONCE PO Last administered on 17:12; Start 10/06/16 at 16:00; Stop 10/06/16 at 16:01; Status DC Active Scripts Active Reported Colcrys (Colchicine) 0.6 Mg Tablet 0.6 Mg PO TID Coumadin (Warfarin Sodium) 6 Mg Tablet 6 Mg PO DAILYWSUP Testosterone Cypionate 200 Mg/1 Ml Vial 200 Mg IM QMONTH Aciphex (Rabeprazole Sodium) 20 Mg Tablet.dr 20 Mg PO BID Pravastatin Sodium 20 Mg Tablet 20 Mg PO HS Percocet 5-325 Mg Tablet (Oxycodone Hcl/Acetaminophen) 1 Each Tablet 2 Tab PO QID Nabumetone 750 Mg Tablet 750 Mg PO BID Lisinopril 20 Mg Tablet 20 Mg PO DAILY Ferrous Sulfate 325 Mg Tablet 324 Mg PO DAILY Carbidopa-Levo 10-100 Mg Odt (Carbidopa/Levodopa) 1 Each Tab.rapdis 2 Tab PO TID Risperidone 1 Mg Tablet 1 Mg PO DAILY Ditropan Xl (Oxybutynin Chloride) 10 Mg Tab.er.24 10 Mg PO DAILY Zolpidem Tartrate 10 Mg Tablet 10 Mg PO PRN QHS PRN Venlafaxine Hcl Er (Venlafaxine Hcl) 75 Mg Cap.er.24h 150 Mg PO BID Trazodone Hcl 100 Mg Tablet 200 Mg PO HS [place] Carbonate 450 Mg Tablet.er 450 Mg PO DAILY Clonazepam 1 Mg Tablet 1 Mg PO PRN BID PRN Vitamin D3 (Cholecalciferol (Vitamin D3)) 1,000 Unit Tablet 1,000 Unit PO DAILY Wellbutrin Xl (Bupropion Hcl) 300 Mg Tab.er.24h 300 Mg PO DAILY Acyclovir 200 Mg Capsule 400 Mg PO BID Zyloprim (Allopurinol) 300 Mg Tablet 300 Mg PO DAILY Mirapex (Pramipexole Di-Hcl) 0.25 Mg Tablet 0.25 Mg PO TID Gabapentin 600 Mg Tablet 600 Mg PO TID Diagnosis: Problems: (1) Anxiety disorder (2) Impulse control disorder (3) Major depressive disorder, recurrent episode (4) Parkinson's disease (5) Psychosis, atypical ROLA VARGAS MD Oct 06, 2016 19:38
[2016-10-06] MEDS: PRAZOSIN 1 MG CAPSULE. PO SCH (20:13)
[2016-10-06] MEDS: PRAVASTATIN 20 MG TABLET. PO SCH (20:14)
[2016-10-06] MEDS: MELATONIN 3 MG TABLET PO SCH (20:14)
[2016-10-06] MEDS: traZODone 100 MG TABLET. PO SCH (20:14)
[2016-10-07 06:01] VITALS: BP 137/61
[2016-10-07] MEDS: buPROPion XL 300 MG TAB.ER.24H. PO SCH (07:52)
[2016-10-07] MEDS: FERROUS SULFATE 325 MG TABLET PO SCH (07:52)
[2016-10-07] MEDS: COLCHICINE 0.6 MG TABLET PO SCH ×3 (07:52→19:15)
[2016-10-07] MEDS: CHOLECALCIFEROL (VITAMIN D3) 1,000 UNIT TABLET PO SCH (07:52)
[2016-10-07] MEDS: ALLOPURINOL 300 MG TABLET. PO SCH (07:52)
[2016-10-07] MEDS: VENLAFAXINE 50 MG TABLET. PO SCH ×3 (07:52→19:15)
[2016-10-07] MEDS: LITHIUM CARBONATE ER 450 MG TABLET.ER PO SCH (07:52)
[2016-10-07] MEDS: oxyCODONE/APAP 5/325 1 TAB TABLET PO SCH ×4 (07:52→19:18)
[2016-10-07] MEDS: OXYBUTYNIN CHLORIDE 5 MG TABLET PO SCH ×2 (07:52→19:16)
[2016-10-07] MEDS: PANTOPRAZOLE 40 MG TABLET. PO SCH (07:52)
[2016-10-07] MEDS: CYANOCOBALAMIN (VITAMIN B-12) 250 MCG TABLET PO SCH (07:52)
[2016-10-07] MEDS: GABAPENTIN 300 MG CAPSULE. PO SCH ×3 (07:53→19:14)
[2016-10-07] MEDS: LISINOPRIL 20 MG TABLET PO SCH (07:53)
[2016-10-07] MEDS: CARBIDOPA/LEVODOPA 25/100MG TABLET PO SCH ×3 (07:53→19:14)
[2016-10-07] MEDS: MELOXICAM 15 MG TABLET. PO SCH (07:53)
[2016-10-07] MEDS: busPIRone 5 MG TABLET. PO SCH ×3 (07:53→19:15)
[2016-10-07] MEDS: PRAMIPEXOLE 0.25 MG TABLET. PO SCH ×3 (07:53→19:15)
[2016-10-07] MEDS: ACYCLOVIR 200 MG CAPSULE PO SCH ×2 (08:02→19:18)
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
[2016-10-07 15:53] VITALS: BP 134/63
[2016-10-07] MEDS: WARFARIN 6 MG TABLET. PO SCH (17:04)
[2016-10-07] MEDS: MELATONIN 3 MG TABLET PO SCH (19:14)
[2016-10-07] MEDS: PRAZOSIN 1 MG CAPSULE. PO SCH (19:15)
[2016-10-07] MEDS: traZODone 100 MG TABLET. PO SCH (19:15)
[2016-10-07] MEDS: PRAVASTATIN 20 MG TABLET. PO SCH (19:15)
--- NOTE | 2016-10-07 19:44 | PDOC ---
Exam Hai Demential Exam: Hai Note: Please also refer to the separate dictated note~for this date of service dictated separately.~Patient seen individually. Discussed the patient with Nursing staff reviewed the chart.~Reviewed interim history and current functioning. Reviewed vital signs,~Labs/ Radiology~and current medications noted below. Continue current treatment with the changes noted in the dictated addendum note Assessment: Vital Signs: Vital Signs Date Time Temp Pulse Resp B/P (MAP) Pulse Ox O2 Delivery O2 Flow Rate FiO2 10/07/16 19:18 18 Room Air 10/07/16 19:15 45 134/63 10/07/16 18:07 96 10/07/16 15:53 98.3 I&O Intake and Output 10/07/16 07:00 Intake Total 1080 ml Balance 1080 ml Intake Oral 1080 ml # Bowel Movements 2 Labs: Laboratory Tests Test 10/06/16 19:55 10/07/16 02:34 10/07/16 06:34 Troponin I Quantitative < 0.017 ng/mL (0-0.055) < 0.017 ng/mL (0-0.055) Prothrombin Time 27.9 SEC (9.4-11.4) H Prothrombin Time INR 2.7 (0.9-1.1) H Current Medications: Meds: Current Medications Acetaminophen (Tylenol) 650 mg PRN Q6HRS PRN PO PAIN / TEMP; Start 09/26/16 at 21:45 Multi-Ingredient Ointment (Analgesic Winfred) 1 jesscia PRN QID PRN TP MUSCLE PAIN; Start 09/26/16 at 21:45 Al Hydroxide/Mg Hydroxide (Mylanta Plus Xs) 15 ml PRN AFTMEALHC PRN PO DYSPEPSIA; Start 09/26/16 at 21:45 Magnesium Hydroxide (Milk Of Magnesia) 2,400 mg PRN QHS PRN PO CONSTIPATION; Start 09/26/16 at 21:45 Bupropion HCl (Wellbutrin Xl) 300 mg DAILY PO Last administered on 10/07/16 07 :52; Start 09/27/16 at 09:00 Clonazepam (KlonoPIN) 1 mg PRN BID PRN PO ANXIETY / AGITATION Last administered on 10/02/16 00:40; Start 09/26/16 at 22:00 [place] Carbonate (Eskalith) 450 mg DAILY PO Last administered on 10/07/16 07: 52; Start 09/27/16 at 09:00 Trazodone HCl (Desyrel) 200 mg HS PO Last administered on 10/07/16 19:15; Start 09/27/16 at 21:00 Venlafaxine HCl (Effexor) 150 mg BID PO ; Start 09/26/16 at 22:30; Stop at 22:30; Status DC Trazodone HCl (Desyrel) 200 mg 1X ONCE PO Last administered on 09/26/16 22:39 ; Start 09/26/16 at 22:35; Stop 09/26/16 at 22:36; Status DC Venlafaxine HCl (Effexor) 50 mg TID PO Last administered on 10/07/16 19:15; Start 09/27/16 at 09:00 Venlafaxine HCl (Effexor) 50 mg 1X ONCE PO Last administered on 09/26/16 22: 49; Start 09/26/16 at 22:50; Stop 09/26/16 at 22:51; Status DC Zolpidem Tartrate (Ambien) 10 mg PRN QHS PRN PO INSOMNIA Last administered on 19:58; Start 09/26/16 at 23:15; Stop 10/01/16 at 21:00; Status DC Acyclovir (Zovirax) 400 mg BID PO Last administered on 10/07/16 19:18; Start 09/27/16 at 09:00 Allopurinol (Zyloprim) 300 mg DAILY PO Last administered on 10/07/16 07:52; Start 09/27/16 at 09:00 Vitamin D (Vitamin D3) 1,000 unit DAILY PO Last administered on 10/07/16 07:52 ; Start 09/27/16 at 09:00 Colchicine (Colcrys) 0.6 mg TID PO Last administered on 10/07/16 19:15; Start 09/27/16 at 09:00 Ferrous Sulfate (Feosol) 324 mg DAILY PO Last administered on 09/28/16 07:57; Start 09/27/16 at 09:00; Stop 09/29/16 at 08:46; Status DC Lisinopril (Prinivil) 20 mg DAILY PO Last administered on 10/06/16 09:00; Start 09/27/16 at 09:00 Oxycodone/ Acetaminophen (Percocet 5/325) 2 tab QID PO Last administered on 19:18; Start 09/27/16 at 09:00 Pramipexole Dihydrochloride (miraPEX) 0.25 mg TID PO Last administered on 19:15; Start 09/27/16 at 09:00 Pravastatin Sodium (Pravachol) 20 mg HS PO Last administered on 10/07/16 19:15 ; Start 09/27/16 at 21:00 Risperidone (RisperDAL) 1 mg DAILY PO Last administered on 09/28/16 07:57; Start 09/27/16 at 09:00; Stop 09/29/16 at 00:29; Status DC Testosterone Cypionate (Depo-Testosterone) 200 mg QMONTH IM ; Start 09/27/16 at 09:00; Stop 09/27/16 at 14:01; Status DC Warfarin Sodium (Coumadin) 6 mg DAILYWSUP PO Last administered on 09/27/16 17: 00; Start 09/27/16 at 17:00; Stop 09/28/16 at 09:50; Status DC Zolpidem Tartrate (Ambien) 10 mg PRN QHS PRN PO INSOMNIA; Start 09/27/16 at 07: 30; Status UNV Carbidopa/Levodopa (Sinemet 10/100) 2 tab TID PO Last administered on 13:03; Start 09/27/16 at 09:00; Stop 09/30/16 at 18:27; Status DC Gabapentin (Neurontin) 600 mg TID PO Last administered on 10/07/16 19:14; Start 09/27/16 at 09:00 Meloxicam (Mobic) 15 mg DAILY PO Last administered on 10/07/16 07:53; Start at 09:00 Oxybutynin Chloride (Ditropan) 5 mg BID PO Last administered on 10/07/16 19:16 ; Start 09/27/16 at 09:00 Pantoprazole Sodium (Protonix) 40 mg DAILYAC PO Last administered on 10/07/16 07:52; Start 09/27/16 at 09:00 Testosterone Cypionate (Depo-Testosterone) 200 mg QMONTH IM ; Start 10/11/16 at 09:00; Stop 10/11/16 at 09:00; Status DC Warfarin Sodium (Coumadin Per Physician) 1 each PRN DAILY PRN MC SEE COMMENTS; Start 09/28/16 at 08:30; Stop 09/28/16 at 08:38; Status DC Warfarin Sodium (Coumadin Per Pharmacy) 1 each PRN DAILY PRN MC SEE COMMENTS Last administered on 10/07/16 12:32; Start 09/28/16 at 08:30 Warfarin Sodium (Coumadin) 7.5 mg 1X WARF ONCE PO Last administered on 18:12; Start 09/28/16 at 16:00; Stop 09/28/16 at 16:01; Status DC Buspirone HCl (Buspar) 5 mg BID@0900,1400 PO Last administered on 10/03/16 09: 10; Start 09/29/16 at 09:00; Stop 10/03/16 at 10:35; Status DC Prazosin HCl (Minipress) 1 mg QHS PO Last administered on 10/01/16 19:22; Start 09/29/16 at 21:00; Stop 10/02/16 at 19:10; Status DC Risperidone (RisperDAL) 0.75 mg QHS PO Last administered on 09/30/16 21:10; Start 09/29/16 at 21:00; Stop 10/01/16 at 20:59; Status DC Risperidone (RisperDAL) 0.5 mg QHS PO Last administered on 10/02/16 19:12; Start 10/01/16 at 21:00; Stop 10/03/16 at 20:59; Status DC Risperidone (RisperDAL) 0.25 mg QHS PO Last administered on 10/05/16 19:16; Start 10/03/16 at 21:00; Stop 10/05/16 at 21:00; Status DC Warfarin Sodium (Coumadin) 7.5 mg 1X WARF ONCE PO Last administered on 16:55; Start 09/29/16 at 16:00; Stop 09/29/16 at 16:01; Status DC Ferrous Sulfate (Feosol) 325 mg DAILY PO Last administered on 10/07/16 07:52; Start 09/29/16 at 09:00 Warfarin Sodium (Coumadin) 7.5 mg 1X WARF ONCE PO Last administered on 16:02; Start 09/30/16 at 16:00; Stop 09/30/16 at 16:01; Status DC Carbidopa/Levodopa (Sinemet 25/100) 2 tab TID PO Last administered on 19:14; Start 09/30/16 at 21:00 Warfarin Sodium (Coumadin) 7.5 mg 1X WARF ONCE PO Last administered on 16:57; Start 10/01/16 at 16:00; Stop 10/01/16 at 16:01; Status DC Zolpidem Tartrate (Ambien) 10 mg HS PO Last administered on 10/01/16 21:34; Start 10/01/16 at 21:00; Stop 10/02/16 at 19:10; Status DC Zolpidem Tartrate (Ambien) 10 mg PRN QHS PRN PO INSOMNIA; Start 10/01/16 at 18: 45; Stop 10/02/16 at 19:10; Status DC Warfarin Sodium (Coumadin) 10 mg 1X WARF ONCE PO Last administered on 17:17; Start 10/02/16 at 16:00; Stop 10/02/16 at 16:01; Status DC Prazosin HCl (Minipress) 2 mg QHS PO Last administered on 10/04/16 19:25; Start 10/02/16 at 21:00; Stop 10/05/16 at 18:46; Status DC Melatonin 3 mg PRN QHS PRN PO INSOMNIA Last administered on 10/02/16 19:42; Start 10/02/16 at 19:15; Stop 10/03/16 at 07:16; Status DC Melatonin 3 mg HS PO ; Start 10/02/16 at 21:00; Stop 10/02/16 at 21:00; Status DC Melatonin 3 mg HS PO Last administered on 10/07/16 19:14; Start 10/03/16 at 21 :00 Buspirone HCl (Buspar) 5 mg TID PO Last administered on 10/07/16 19:15; Start 10/03/16 at 14:00 Warfarin Sodium (Coumadin) 7.5 mg 1X WARF ONCE PO Last administered on 17:13; Start 10/03/16 at 16:00; Stop 10/03/16 at 16:01; Status DC Warfarin Sodium (Coumadin) 6 mg 1X WARF ONCE PO Last administered on 17:15; Start 10/04/16 at 16:00; Stop 10/04/16 at 16:01; Status DC Warfarin Sodium (Coumadin) 6 mg 1X WARF ONCE PO Last administered on 16:56; Start 10/05/16 at 16:00; Stop 10/05/16 at 16:01; Status DC Prazosin HCl (Minipress) 3 mg QHS PO Last administered on 10/07/16 19:15; Start 10/05/16 at 21:00 Cyanocobalamin (Vitamin B-12) 250 mcg DAILY PO Last administered on 10/07/16 07:52; Start 10/06/16 at 09:00 Calcium Carbonate/ Glycine (Tums) 500 mg 1X ONCE PO Last administered on 08:59; Start 10/06/16 at 08:45; Stop 10/06/16 at 08:46; Status DC Warfarin Sodium (Coumadin) 6 mg 1X WARF ONCE PO Last administered on 17:12; Start 10/06/16 at 16:00; Stop 10/06/16 at 16:01; Status DC Warfarin Sodium (Coumadin) 6 mg DAILY16 PO Last administered on 10/07/16 17:04 ; Start 10/07/16 at 16:00 Active Scripts Active Reported Colcrys (Colchicine) 0.6 Mg Tablet 0.6 Mg PO TID Coumadin (Warfarin Sodium) 6 Mg Tablet 6 Mg PO DAILYWSUP Testosterone Cypionate 200 Mg/1 Ml Vial 200 Mg IM QMONTH Aciphex (Rabeprazole Sodium) 20 Mg Tablet.dr 20 Mg PO BID Pravastatin Sodium 20 Mg Tablet 20 Mg PO HS Percocet 5-325 Mg Tablet (Oxycodone Hcl/Acetaminophen) 1 Each Tablet 2 Tab PO QID Nabumetone 750 Mg Tablet 750 Mg PO BID Lisinopril 20 Mg Tablet 20 Mg PO DAILY Ferrous Sulfate 325 Mg Tablet 324 Mg PO DAILY Carbidopa-Levo 10-100 Mg Odt (Carbidopa/Levodopa) 1 Each Tab.rapdis 2 Tab PO TID Risperidone 1 Mg Tablet 1 Mg PO DAILY Ditropan Xl (Oxybutynin Chloride) 10 Mg Tab.er.24 10 Mg PO DAILY Zolpidem Tartrate 10 Mg Tablet 10 Mg PO PRN QHS PRN Venlafaxine Hcl Er (Venlafaxine Hcl) 75 Mg Cap.er.24h 150 Mg PO BID Trazodone Hcl 100 Mg Tablet 200 Mg PO HS [place] Carbonate 450 Mg Tablet.er 450 Mg PO DAILY Clonazepam 1 Mg Tablet 1 Mg PO PRN BID PRN Vitamin D3 (Cholecalciferol (Vitamin D3)) 1,000 Unit Tablet 1,000 Unit PO DAILY Wellbutrin Xl (Bupropion Hcl) 300 Mg Tab.er.24h 300 Mg PO DAILY Acyclovir 200 Mg Capsule 400 Mg PO BID Zyloprim (Allopurinol) 300 Mg Tablet 300 Mg PO DAILY Mirapex (Pramipexole Di-Hcl) 0.25 Mg Tablet 0.25 Mg PO TID Gabapentin 600 Mg Tablet 600 Mg PO TID Diagnosis: Problems: (1) Anxiety disorder (2) Impulse control disorder (3) Major depressive disorder, recurrent episode (4) Parkinson's disease (5) Psychosis, atypical ROLA VARGAS MD Oct 07, 2016 19:44
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
[2016-10-08 06:20] VITALS: BP 137/69
[2016-10-08] MEDS: FERROUS SULFATE 325 MG TABLET PO SCH (08:31)
[2016-10-08] MEDS: MELOXICAM 15 MG TABLET. PO SCH (08:31)
[2016-10-08] MEDS: LITHIUM CARBONATE ER 450 MG TABLET.ER PO SCH (08:31)
[2016-10-08] MEDS: CHOLECALCIFEROL (VITAMIN D3) 1,000 UNIT TABLET PO SCH (08:31)
[2016-10-08] MEDS: OXYBUTYNIN CHLORIDE 5 MG TABLET PO SCH ×2 (08:31→20:17)
[2016-10-08] MEDS: buPROPion XL 300 MG TAB.ER.24H. PO SCH (08:31)
[2016-10-08] MEDS: PRAMIPEXOLE 0.25 MG TABLET. PO SCH ×3 (08:31→20:18)
[2016-10-08] MEDS: ALLOPURINOL 300 MG TABLET. PO SCH (08:31)
[2016-10-08] MEDS: VENLAFAXINE 50 MG TABLET. PO SCH ×3 (08:31→20:19)
[2016-10-08] MEDS: PANTOPRAZOLE 40 MG TABLET. PO SCH (08:31)
[2016-10-08] MEDS: CYANOCOBALAMIN (VITAMIN B-12) 250 MCG TABLET PO SCH (08:31)
[2016-10-08] MEDS: GABAPENTIN 300 MG CAPSULE. PO SCH ×3 (08:36→20:17)
[2016-10-08] MEDS: CARBIDOPA/LEVODOPA 25/100MG TABLET PO SCH ×3 (08:36→20:18)
[2016-10-08] MEDS: LISINOPRIL 20 MG TABLET PO SCH (08:37)
[2016-10-08] MEDS: busPIRone 10 MG TABLET. PO SCH ×3 (08:38→20:18)
[2016-10-08] MEDS: oxyCODONE/APAP 5/325 1 TAB TABLET PO SCH ×4 (08:38→20:22)
[2016-10-08] MEDS: ACYCLOVIR 200 MG CAPSULE PO SCH ×2 (08:38→20:22)
[2016-10-08] MEDS: COLCHICINE 0.6 MG TABLET PO SCH ×3 (08:47→20:17)
--- NOTE | 2016-10-08 09:31 | PN ---
DATE: 10/01/2016 SUBJECTIVE: The patient continues to have mild tremor of the hands and right knee pain, more prominent when he walks. He denies any new medical or neurological complaints. He has not had any fall since admission. OBJECTIVE: GENERAL: Well-developed, well-nourished white male, not in acute distress. VITAL SIGNS: Blood pressure 123/66, respiratory rate 20, pulse is 50, oxygen saturation is 96% on room air, temperature is 98.3. HEENT: Normocephalic, atraumatic, otherwise unremarkable. NECK: Supple. Negative for carotid bruit, lymphadenopathy or thyromegaly. LUNGS: Clear to A and P. CARDIOVASCULAR: Regular rate and rhythm, normal S1, S2. There is no S3, S4 or murmur. ABDOMEN: Soft. Bowel sounds positive. EXTREMITIES: Negative for cyanosis, clubbing or pitting edema. NEUROLOGICAL EXAM: Mental Status: The patient is alert and oriented x 3. Speech is fluent. There is no language dysfunction. The patient recalls 2/3 immediately and after 1 and 3 minutes. Judgment and abstract thinking are normal. The patient denies hallucination or delusion. Cranial nerves are intact. Motor Examination: No focal muscle bulk was seen. The tone is normal. The strength is 4/5 throughout. The patient has mild tremor of the hands, more prominent on the left side. Deep tendon reflexes were symmetric and hypoactive with absent Achilles responses. Gait: The patient uses a walker for ambulation. IMPRESSION: 1. Parkinson disease with mild rigidity of the lower extremities and probably secondary to joints pain and postural instability. He did have intermittent mild tremor of the hands. 2. Multiple medical problems include deep venous thrombosis, bradycardia, osteoarthritis, depression, anxiety, hyperlipidemia and hypertension. RECOMMENDATIONS: 1. We will continue with carbidopa/levodopa at 25/100 two tablets 3 times daily and Mirapex 0.5 mg 1 tablet t.i.d. 2. We will check with boom stick man when bradycardia becomes symptomatic. 3. Continue with current psychiatric care. M Cheikh OCAMPO MD DR: CYNDIE/carmela JOB#: [id number] / [id number]
[2016-10-08] MEDS: ASPIRIN 81 MG TAB.CHEW PO SCH (09:45)
[2016-10-08 16:10] VITALS: BP 121/76
[2016-10-08] MEDS: WARFARIN 6 MG TABLET. PO SCH (16:25)
--- NOTE | 2016-10-08 19:49 | PDOC ---
Exam Hai Demential Exam: Hai Note: Please also refer to the separate dictated note~for this date of service dictated separately.~Patient seen individually. Discussed the patient with Nursing staff reviewed the chart.~Reviewed interim history and current functioning. Reviewed vital signs,~Labs/ Radiology~and current medications noted below. Continue current treatment with the changes noted in the dictated addendum note Assessment: Vital Signs: Vital Signs Date Time Temp Pulse Resp B/P (MAP) Pulse Ox O2 Delivery O2 Flow Rate FiO2 10/08/16 17:26 94 10/08/16 16:10 98.5 62 20 121/76 (91) 10/07/16 20:18 Room Air I&O Intake and Output 10/08/16 07:00 Intake Total 960 ml Balance 960 ml Intake Oral 960 ml # Bowel Movements 1 Current Medications: Meds: Current Medications Acetaminophen (Tylenol) 650 mg PRN Q6HRS PRN PO PAIN / TEMP; Start 09/26/16 at 21:45 Multi-Ingredient Ointment (Analgesic [place]) 1 jessica PRN QID PRN TP MUSCLE PAIN; Start 09/26/16 at 21:45 Al Hydroxide/Mg Hydroxide (Mylanta Plus Xs) 15 ml PRN AFTMEALHC PRN PO DYSPEPSIA; Start 09/26/16 at 21:45 Magnesium Hydroxide (Milk Of Magnesia) 2,400 mg PRN QHS PRN PO CONSTIPATION; Start 09/26/16 at 21:45 Bupropion HCl (Wellbutrin Xl) 300 mg DAILY PO Last administered on 10/08/16 08: 31; Start 09/27/16 at 09:00 Clonazepam (KlonoPIN) 1 mg PRN BID PRN PO ANXIETY / AGITATION Last administered on 10/02/16 00:40; Start 09/26/16 at 22:00 [place] Carbonate (Eskalith) 450 mg DAILY PO Last administered on 10/08/16 08: 31; Start 09/27/16 at 09:00 Trazodone HCl (Desyrel) 200 mg HS PO Last administered on 10/07/16 19:15; Start 09/27/16 at 21:00 Venlafaxine HCl (Effexor) 150 mg BID PO ; Start 09/26/16 at 22:30; Stop at 22:30; Status DC Trazodone HCl (Desyrel) 200 mg 1X ONCE PO Last administered on 09/26/16 22:39 ; Start 09/26/16 at 22:35; Stop 09/26/16 at 22:36; Status DC Venlafaxine HCl (Effexor) 50 mg TID PO Last administered on 10/08/16 14:04; Start 09/27/16 at 09:00 Venlafaxine HCl (Effexor) 50 mg 1X ONCE PO Last administered on 09/26/16 22: 49; Start 09/26/16 at 22:50; Stop 09/26/16 at 22:51; Status DC Zolpidem Tartrate (Ambien) 10 mg PRN QHS PRN PO INSOMNIA Last administered on 19:58; Start 09/26/16 at 23:15; Stop 10/01/16 at 21:00; Status DC Acyclovir (Zovirax) 400 mg BID PO Last administered on 10/08/16 08:38; Start at 09:00 Allopurinol (Zyloprim) 300 mg DAILY PO Last administered on 10/08/16 08:31; Start 09/27/16 at 09:00 Vitamin D (Vitamin D3) 1,000 unit DAILY PO Last administered on 10/08/16 08:31 ; Start 09/27/16 at 09:00 Colchicine (Colcrys) 0.6 mg TID PO Last administered on 10/08/16 14:04; Start 09/27/16 at 09:00 Ferrous Sulfate (Feosol) 324 mg DAILY PO Last administered on 09/28/16 07:57; Start 09/27/16 at 09:00; Stop 09/29/16 at 08:46; Status DC Lisinopril (Prinivil) 20 mg DAILY PO Last administered on 10/06/16 09:00; Start 09/27/16 at 09:00 Oxycodone/ Acetaminophen (Percocet 5/325) 2 tab QID PO Last administered on 10/08 16:25; Start 09/27/16 at 09:00 Pramipexole Dihydrochloride (miraPEX) 0.25 mg TID PO Last administered on 14:04; Start 09/27/16 at 09:00 Pravastatin Sodium (Pravachol) 20 mg HS PO Last administered on 10/07/16 19:15 ; Start 09/27/16 at 21:00 Risperidone (RisperDAL) 1 mg DAILY PO Last administered on 09/28/16 07:57; Start 09/27/16 at 09:00; Stop 09/29/16 at 00:29; Status DC Testosterone Cypionate (Depo-Testosterone) 200 mg QMONTH IM ; Start 09/27/16 at 09:00; Stop 09/27/16 at 14:01; Status DC Warfarin Sodium (Coumadin) 6 mg DAILYWSUP PO Last administered on 09/27/16 17: 00; Start 09/27/16 at 17:00; Stop 09/28/16 at 09:50; Status DC Zolpidem Tartrate (Ambien) 10 mg PRN QHS PRN PO INSOMNIA; Start 09/27/16 at 07: 30; Status UNV Carbidopa/Levodopa (Sinemet 10/100) 2 tab TID PO Last administered on 13:03; Start 09/27/16 at 09:00; Stop 09/30/16 at 18:27; Status DC Gabapentin (Neurontin) 600 mg TID PO Last administered on 10/08/16 14:06; Start 09/27/16 at 09:00 Meloxicam (Mobic) 15 mg DAILY PO Last administered on 10/08/16 08:31; Start at 09:00 Oxybutynin Chloride (Ditropan) 5 mg BID PO Last administered on 10/08/16 08:31 ; Start 09/27/16 at 09:00 Pantoprazole Sodium (Protonix) 40 mg DAILYAC PO Last administered on 10/08/16 08:31; Start 09/27/16 at 09:00 Testosterone Cypionate (Depo-Testosterone) 200 mg QMONTH IM ; Start 10/11/16 at 09:00; Stop 10/11/16 at 09:00; Status DC Warfarin Sodium (Coumadin Per Physician) 1 each PRN DAILY PRN MC SEE COMMENTS; Start 09/28/16 at 08:30; Stop 09/28/16 at 08:38; Status DC Warfarin Sodium (Coumadin Per Pharmacy) 1 each PRN DAILY PRN MC SEE COMMENTS Last administered on 10/07/16 12:32; Start 09/28/16 at 08:30 Warfarin Sodium (Coumadin) 7.5 mg 1X WARF ONCE PO Last administered on 18:12; Start 09/28/16 at 16:00; Stop 09/28/16 at 16:01; Status DC Buspirone HCl (Buspar) 5 mg BID@0900,1400 PO Last administered on 10/03/16 09: 10; Start 09/29/16 at 09:00; Stop 10/03/16 at 10:35; Status DC Prazosin HCl (Minipress) 1 mg QHS PO Last administered on 10/01/16 19:22; Start 09/29/16 at 21:00; Stop 10/02/16 at 19:10; Status DC Risperidone (RisperDAL) 0.75 mg QHS PO Last administered on 09/30/16 21:10; Start 09/29/16 at 21:00; Stop 10/01/16 at 20:59; Status DC Risperidone (RisperDAL) 0.5 mg QHS PO Last administered on 10/02/16 19:12; Start 10/01/16 at 21:00; Stop 10/03/16 at 20:59; Status DC Risperidone (RisperDAL) 0.25 mg QHS PO Last administered on 10/05/16 19:16; Start 10/03/16 at 21:00; Stop 10/05/16 at 21:00; Status DC Warfarin Sodium (Coumadin) 7.5 mg 1X WARF ONCE PO Last administered on 16:55; Start 09/29/16 at 16:00; Stop 09/29/16 at 16:01; Status DC Ferrous Sulfate (Feosol) 325 mg DAILY PO Last administered on 10/08/16 08:31; Start 09/29/16 at 09:00 Warfarin Sodium (Coumadin) 7.5 mg 1X WARF ONCE PO Last administered on 16:02; Start 09/30/16 at 16:00; Stop 09/30/16 at 16:01; Status DC Carbidopa/Levodopa (Sinemet 25/100) 2 tab TID PO Last administered on 10/08/16 14:04; Start 09/30/16 at 21:00 Warfarin Sodium (Coumadin) 7.5 mg 1X WARF ONCE PO Last administered on 16:57; Start 10/01/16 at 16:00; Stop 10/01/16 at 16:01; Status DC Zolpidem Tartrate (Ambien) 10 mg HS PO Last administered on 10/01/16 21:34; Start 10/01/16 at 21:00; Stop 10/02/16 at 19:10; Status DC Zolpidem Tartrate (Ambien) 10 mg PRN QHS PRN PO INSOMNIA; Start 10/01/16 at 18: 45; Stop 10/02/16 at 19:10; Status DC Warfarin Sodium (Coumadin) 10 mg 1X WARF ONCE PO Last administered on 17:17; Start 10/02/16 at 16:00; Stop 10/02/16 at 16:01; Status DC Prazosin HCl (Minipress) 2 mg QHS PO Last administered on 10/04/16 19:25; Start 10/02/16 at 21:00; Stop 10/05/16 at 18:46; Status DC Melatonin 3 mg PRN QHS PRN PO INSOMNIA Last administered on 10/02/16 19:42; Start 10/02/16 at 19:15; Stop 10/03/16 at 07:16; Status DC Melatonin 3 mg HS PO ; Start 10/02/16 at 21:00; Stop 10/02/16 at 21:00; Status DC Melatonin 3 mg HS PO Last administered on 10/07/16 19:14; Start 10/03/16 at 21 :00 Buspirone HCl (Buspar) 5 mg TID PO Last administered on 10/07/16 19:15; Start 10/03/16 at 14:00; Stop 10/08/16 at 06:48; Status DC Warfarin Sodium (Coumadin) 7.5 mg 1X WARF ONCE PO Last administered on 17:13; Start 10/03/16 at 16:00; Stop 10/03/16 at 16:01; Status DC Warfarin Sodium (Coumadin) 6 mg 1X WARF ONCE PO Last administered on 17:15; Start 10/04/16 at 16:00; Stop 10/04/16 at 16:01; Status DC Warfarin Sodium (Coumadin) 6 mg 1X WARF ONCE PO Last administered on 16:56; Start 10/05/16 at 16:00; Stop 10/05/16 at 16:01; Status DC Prazosin HCl (Minipress) 3 mg QHS PO Last administered on 10/07/16 19:15; Start 10/05/16 at 21:00 Cyanocobalamin (Vitamin B-12) 250 mcg DAILY PO Last administered on 10/08/16 08 :31; Start 10/06/16 at 09:00 Calcium Carbonate/ Glycine (Tums) 500 mg 1X ONCE PO Last administered on 08:59; Start 10/06/16 at 08:45; Stop 10/06/16 at 08:46; Status DC Warfarin Sodium (Coumadin) 6 mg 1X WARF ONCE PO Last administered on 17:12; Start 10/06/16 at 16:00; Stop 10/06/16 at 16:01; Status DC Warfarin Sodium (Coumadin) 6 mg DAILY16 PO Last administered on 10/08/16 16:25 ; Start 10/07/16 at 16:00 Buspirone HCl (Buspar) 10 mg TID PO Last administered on 10/08/16 14:04; Start 10/08/16 at 09:00 Aspirin (Children'S Aspirin) 81 mg DAILYWBKFT PO Last administered on 10/08/16 09:45; Start 10/08/16 at 09:30 Mirtazapine (Remeron) 7.5 mg QHS PO ; Start 10/08/16 at 21:00 Quetiapine Fumarate (SEROquel) 12.5 mg BID92 PO ; Start 10/09/16 at 09:00 Active Scripts Active Reported Colcrys (Colchicine) 0.6 Mg Tablet 0.6 Mg PO TID Coumadin (Warfarin Sodium) 6 Mg Tablet 6 Mg PO DAILYWSUP Testosterone Cypionate 200 Mg/1 Ml Vial 200 Mg IM QMONTH Aciphex (Rabeprazole Sodium) 20 Mg Tablet.dr 20 Mg PO BID Pravastatin Sodium 20 Mg Tablet 20 Mg PO HS Percocet 5-325 Mg Tablet (Oxycodone Hcl/Acetaminophen) 1 Each Tablet 2 Tab PO QID Nabumetone 750 Mg Tablet 750 Mg PO BID Lisinopril 20 Mg Tablet 20 Mg PO DAILY Ferrous Sulfate 325 Mg Tablet 324 Mg PO DAILY Carbidopa-Levo 10-100 Mg Odt (Carbidopa/Levodopa) 1 Each Tab.rapdis 2 Tab PO TID Risperidone 1 Mg Tablet 1 Mg PO DAILY Ditropan Xl (Oxybutynin Chloride) 10 Mg Tab.er.24 10 Mg PO DAILY Zolpidem Tartrate 10 Mg Tablet 10 Mg PO PRN QHS PRN Venlafaxine Hcl Er (Venlafaxine Hcl) 75 Mg Cap.er.24h 150 Mg PO BID Trazodone Hcl 100 Mg Tablet 200 Mg PO HS [place] Carbonate 450 Mg Tablet.er 450 Mg PO DAILY Clonazepam 1 Mg Tablet 1 Mg PO PRN BID PRN Vitamin D3 (Cholecalciferol (Vitamin D3)) 1,000 Unit Tablet 1,000 Unit PO DAILY Wellbutrin Xl (Bupropion Hcl) 300 Mg Tab.er.24h 300 Mg PO DAILY Acyclovir 200 Mg Capsule 400 Mg PO BID Zyloprim (Allopurinol) 300 Mg Tablet 300 Mg PO DAILY Mirapex (Pramipexole Di-Hcl) 0.25 Mg Tablet 0.25 Mg PO TID Gabapentin 600 Mg Tablet 600 Mg PO TID Diagnosis: Problems: (1) Anxiety disorder (2) Impulse control disorder (3) Major depressive disorder, recurrent episode (4) Parkinson's disease (5) Psychosis, atypical ROLA VARGAS MD Oct 08, 2016 19:49
[2016-10-08] MEDS: traZODone 100 MG TABLET. PO SCH (20:18)
[2016-10-08] MEDS: MELATONIN 3 MG TABLET PO SCH (20:18)
[2016-10-08] MEDS: PRAVASTATIN 20 MG TABLET. PO SCH (20:19)
[2016-10-08] MEDS: PRAZOSIN 1 MG CAPSULE. PO SCH (20:19)
[2016-10-08] MEDS: MIRTAZAPINE 7.5 MG TABLET. PO SCH (20:22)
--- NOTE | 2016-10-08 23:42 | PN ---
DATE: 10/07/2016 PSYCHIATRIC PROGRESS NOTE This late entry of 10/07/2016 covers elements not covered in my initial note of 10/07/2016. SUBJECTIVE: The patient was seen individually evening of 10/07/2016. Per nursing staff at times, he has a short temper. At one point, he slammed his walker in the day room when he got frustrated at nursing staff, not responding quick enough to him. The door was locked and this frustrated him. Over the weekend, he had complained of some chest pain, cardiac workup is in progress. REVIEW OF SYSTEMS: Ambulation impaired with walker. No CV, , pulmonary, eye, ENT system symptoms on review. MENTAL STATUS EXAM: Reasonably oriented as I sat with him. Speech is coherent, abstraction fair, computation impaired, language function intact, attention span short, and mood and affect, lability is improved other than episode noted above. No active suicidal or homicidal ideation. LABORATORY DATA: Reviewed. IMPRESSION: Unchanged from initial note including PTSD; Psychotic disorder, unspecified; major depressive disorder, in partial remission; anxiety disorder, unspecified; impulse control disorder, unspecified. PLAN: Increase BuSpar from 5 mg 3 times a day to 10 mg twice a day. Maintain Effexor, lithium, Wellbutrin, trazodone, Klonopin p.r.n., Risperdal is being tapered, prazosin was increased to 3 mg at bedtime, melatonin 3 mg at bedtime. ROLA VARGAS MD DR: MILKA/carmela JOB#: [id number] / [id number]
[2016-10-09 05:46] VITALS: BP 148/79
[2016-10-09] MEDS: CYANOCOBALAMIN (VITAMIN B-12) 250 MCG TABLET PO SCH (08:07)
[2016-10-09] MEDS: MELOXICAM 15 MG TABLET. PO SCH (08:07)
[2016-10-09] MEDS: PANTOPRAZOLE 40 MG TABLET. PO SCH (08:08)
[2016-10-09] MEDS: OXYBUTYNIN CHLORIDE 5 MG TABLET PO SCH ×2 (08:08→20:14)
[2016-10-09] MEDS: PRAMIPEXOLE 0.25 MG TABLET. PO SCH ×3 (08:08→20:13)
[2016-10-09] MEDS: GABAPENTIN 300 MG CAPSULE. PO SCH ×3 (08:08→20:13)
[2016-10-09] MEDS: VENLAFAXINE 50 MG TABLET. PO SCH ×3 (08:08→20:05)
[2016-10-09] MEDS: QUEtiapine 25 MG TABLET. PO SCH ×2 (08:08→14:01)
[2016-10-09] MEDS: COLCHICINE 0.6 MG TABLET PO SCH ×3 (08:09→20:13)
[2016-10-09] MEDS: ACYCLOVIR 200 MG CAPSULE PO SCH ×2 (08:09→20:14)
[2016-10-09] MEDS: ASPIRIN 81 MG TAB.CHEW PO SCH (08:09)
[2016-10-09] MEDS: FERROUS SULFATE 325 MG TABLET PO SCH (08:09)
[2016-10-09] MEDS: CHOLECALCIFEROL (VITAMIN D3) 1,000 UNIT TABLET PO SCH (08:09)
[2016-10-09] MEDS: ALLOPURINOL 300 MG TABLET. PO SCH (08:09)
[2016-10-09] MEDS: CARBIDOPA/LEVODOPA 25/100MG TABLET PO SCH ×3 (08:09→20:14)
[2016-10-09] MEDS: LITHIUM CARBONATE ER 450 MG TABLET.ER PO SCH (08:10)
[2016-10-09] MEDS: LISINOPRIL 20 MG TABLET PO SCH (08:10)
[2016-10-09] MEDS: buPROPion XL 300 MG TAB.ER.24H. PO SCH (08:10)
[2016-10-09] MEDS: busPIRone 10 MG TABLET. PO SCH ×3 (08:10→20:14)
[2016-10-09] MEDS: oxyCODONE/APAP 5/325 1 TAB TABLET PO SCH ×4 (08:11→20:16)
[2016-10-09 16:17] VITALS: BP 99/58
[2016-10-09] MEDS: WARFARIN 6 MG TABLET. PO SCH (16:53)
--- NOTE | 2016-10-09 19:36 | PDOC ---
Exam Hai Demential Exam: Hai Note: Please also refer to the separate dictated note~for this date of service dictated separately.~Patient seen individually. Discussed the patient with Nursing staff reviewed the chart.~Reviewed interim history and current functioning. Reviewed vital signs,~Labs/ Radiology~and current medications noted below. Continue current treatment with the changes noted in the dictated addendum note Assessment: Vital Signs: Vital Signs Date Time Temp Pulse Resp B/P (MAP) Pulse Ox O2 Delivery O2 Flow Rate FiO2 10/09/16 18:18 18 95 Room Air 10/09/16 16:17 97.9 47 99/58 (72) I&O Intake and Output 10/09/16 07:00 Intake Total 1430 ml Balance 1430 ml Intake Oral 1430 ml Labs: Laboratory Tests Test 10/09/16 06:01 Prothrombin Time 29.6 SEC (9.4-11.4) H Prothrombin Time INR 2.9 (0.9-1.1) H Current Medications: Meds: Current Medications Acetaminophen (Tylenol) 650 mg PRN Q6HRS PRN PO PAIN / TEMP; Start 09/26/16 at 21:45 Multi-Ingredient Ointment (Analgesic [place]) 1 jessica PRN QID PRN TP MUSCLE PAIN; Start 09/26/16 at 21:45 Al Hydroxide/Mg Hydroxide (Mylanta Plus Xs) 15 ml PRN AFTMEALHC PRN PO DYSPEPSIA; Start 09/26/16 at 21:45 Magnesium Hydroxide (Milk Of Magnesia) 2,400 mg PRN QHS PRN PO CONSTIPATION; Start 09/26/16 at 21:45 Bupropion HCl (Wellbutrin Xl) 300 mg DAILY PO Last administered on 10/09/16 08: 10; Start 09/27/16 at 09:00 Clonazepam (KlonoPIN) 1 mg PRN BID PRN PO ANXIETY / AGITATION Last administered on 10/02/16 00:40; Start 09/26/16 at 22:00 [place] Carbonate (Eskalith) 450 mg DAILY PO Last administered on 10/09/16 08: 10; Start 09/27/16 at 09:00 Trazodone HCl (Desyrel) 200 mg HS PO Last administered on 10/08/16 20:18; Start 09/27/16 at 21:00 Venlafaxine HCl (Effexor) 150 mg BID PO ; Start 09/26/16 at 22:30; Stop at 22:30; Status DC Trazodone HCl (Desyrel) 200 mg 1X ONCE PO Last administered on 09/26/16 22:39 ; Start 09/26/16 at 22:35; Stop 09/26/16 at 22:36; Status DC Venlafaxine HCl (Effexor) 50 mg TID PO Last administered on 10/09/16 14:01; Start 09/27/16 at 09:00 Venlafaxine HCl (Effexor) 50 mg 1X ONCE PO Last administered on 09/26/16 22: 49; Start 09/26/16 at 22:50; Stop 09/26/16 at 22:51; Status DC Zolpidem Tartrate (Ambien) 10 mg PRN QHS PRN PO INSOMNIA Last administered on 19:58; Start 09/26/16 at 23:15; Stop 10/01/16 at 21:00; Status DC Acyclovir (Zovirax) 400 mg BID PO Last administered on 10/09/16 08:09; Start at 09:00 Allopurinol (Zyloprim) 300 mg DAILY PO Last administered on 10/09/16 08:09; Start 09/27/16 at 09:00 Vitamin D (Vitamin D3) 1,000 unit DAILY PO Last administered on 10/09/16 08:09 ; Start 09/27/16 at 09:00 Colchicine (Colcrys) 0.6 mg TID PO Last administered on 10/09/16 14:02; Start 09/27/16 at 09:00 Ferrous Sulfate (Feosol) 324 mg DAILY PO Last administered on 09/28/16 07:57; Start 09/27/16 at 09:00; Stop 09/29/16 at 08:46; Status DC Lisinopril (Prinivil) 20 mg DAILY PO Last administered on 10/09/16 08:10; Start 09/27/16 at 09:00 Oxycodone/ Acetaminophen (Percocet 5/325) 2 tab QID PO Last administered on 10/09 16:53; Start 09/27/16 at 09:00 Pramipexole Dihydrochloride (miraPEX) 0.25 mg TID PO Last administered on 14:02; Start 09/27/16 at 09:00 Pravastatin Sodium (Pravachol) 20 mg HS PO Last administered on 10/08/16 20:19 ; Start 09/27/16 at 21:00 Risperidone (RisperDAL) 1 mg DAILY PO Last administered on 09/28/16 07:57; Start 09/27/16 at 09:00; Stop 09/29/16 at 00:29; Status DC Testosterone Cypionate (Depo-Testosterone) 200 mg QMONTH IM ; Start 09/27/16 at 09:00; Stop 09/27/16 at 14:01; Status DC Warfarin Sodium (Coumadin) 6 mg DAILYWSUP PO Last administered on 09/27/16 17: 00; Start 09/27/16 at 17:00; Stop 09/28/16 at 09:50; Status DC Zolpidem Tartrate (Ambien) 10 mg PRN QHS PRN PO INSOMNIA; Start 09/27/16 at 07: 30; Status UNV Carbidopa/Levodopa (Sinemet 10/100) 2 tab TID PO Last administered on 13:03; Start 09/27/16 at 09:00; Stop 09/30/16 at 18:27; Status DC Gabapentin (Neurontin) 600 mg TID PO Last administered on 10/09/16 14:02; Start 09/27/16 at 09:00 Meloxicam (Mobic) 15 mg DAILY PO Last administered on 10/09/16 08:07; Start at 09:00 Oxybutynin Chloride (Ditropan) 5 mg BID PO Last administered on 10/09/16 08:08 ; Start 09/27/16 at 09:00 Pantoprazole Sodium (Protonix) 40 mg DAILYAC PO Last administered on 10/09/16 08:08; Start 09/27/16 at 09:00 Testosterone Cypionate (Depo-Testosterone) 200 mg QMONTH IM ; Start 10/11/16 at 09:00; Stop 10/11/16 at 09:00; Status DC Warfarin Sodium (Coumadin Per Physician) 1 each PRN DAILY PRN MC SEE COMMENTS; Start 09/28/16 at 08:30; Stop 09/28/16 at 08:38; Status DC Warfarin Sodium (Coumadin Per Pharmacy) 1 each PRN DAILY PRN MC SEE COMMENTS Last administered on 10/09/16 12:48; Start 09/28/16 at 08:30 Warfarin Sodium (Coumadin) 7.5 mg 1X WARF ONCE PO Last administered on 18:12; Start 09/28/16 at 16:00; Stop 09/28/16 at 16:01; Status DC Buspirone HCl (Buspar) 5 mg BID@0900,1400 PO Last administered on 10/03/16 09: 10; Start 09/29/16 at 09:00; Stop 10/03/16 at 10:35; Status DC Prazosin HCl (Minipress) 1 mg QHS PO Last administered on 10/01/16 19:22; Start 09/29/16 at 21:00; Stop 10/02/16 at 19:10; Status DC Risperidone (RisperDAL) 0.75 mg QHS PO Last administered on 09/30/16 21:10; Start 09/29/16 at 21:00; Stop 10/01/16 at 20:59; Status DC Risperidone (RisperDAL) 0.5 mg QHS PO Last administered on 10/02/16 19:12; Start 10/01/16 at 21:00; Stop 10/03/16 at 20:59; Status DC Risperidone (RisperDAL) 0.25 mg QHS PO Last administered on 10/05/16 19:16; Start 10/03/16 at 21:00; Stop 10/05/16 at 21:00; Status DC Warfarin Sodium (Coumadin) 7.5 mg 1X WARF ONCE PO Last administered on 16:55; Start 09/29/16 at 16:00; Stop 09/29/16 at 16:01; Status DC Ferrous Sulfate (Feosol) 325 mg DAILY PO Last administered on 10/09/16 08:09; Start 09/29/16 at 09:00 Warfarin Sodium (Coumadin) 7.5 mg 1X WARF ONCE PO Last administered on 16:02; Start 09/30/16 at 16:00; Stop 09/30/16 at 16:01; Status DC Carbidopa/Levodopa (Sinemet 25/100) 2 tab TID PO Last administered on 10/09/16 14:02; Start 09/30/16 at 21:00 Warfarin Sodium (Coumadin) 7.5 mg 1X WARF ONCE PO Last administered on 16:57; Start 10/01/16 at 16:00; Stop 10/01/16 at 16:01; Status DC Zolpidem Tartrate (Ambien) 10 mg HS PO Last administered on 10/01/16 21:34; Start 10/01/16 at 21:00; Stop 10/02/16 at 19:10; Status DC Zolpidem Tartrate (Ambien) 10 mg PRN QHS PRN PO INSOMNIA; Start 10/01/16 at 18: 45; Stop 10/02/16 at 19:10; Status DC Warfarin Sodium (Coumadin) 10 mg 1X WARF ONCE PO Last administered on 17:17; Start 10/02/16 at 16:00; Stop 10/02/16 at 16:01; Status DC Prazosin HCl (Minipress) 2 mg QHS PO Last administered on 10/04/16 19:25; Start 10/02/16 at 21:00; Stop 10/05/16 at 18:46; Status DC Melatonin 3 mg PRN QHS PRN PO INSOMNIA Last administered on 10/02/16 19:42; Start 10/02/16 at 19:15; Stop 10/03/16 at 07:16; Status DC Melatonin 3 mg HS PO ; Start 10/02/16 at 21:00; Stop 10/02/16 at 21:00; Status DC Melatonin 3 mg HS PO Last administered on 10/08/16 20:18; Start 10/03/16 at 21: 00 Buspirone HCl (Buspar) 5 mg TID PO Last administered on 10/07/16 19:15; Start 10/03/16 at 14:00; Stop 10/08/16 at 06:48; Status DC Warfarin Sodium (Coumadin) 7.5 mg 1X WARF ONCE PO Last administered on 17:13; Start 10/03/16 at 16:00; Stop 10/03/16 at 16:01; Status DC Warfarin Sodium (Coumadin) 6 mg 1X WARF ONCE PO Last administered on 17:15; Start 10/04/16 at 16:00; Stop 10/04/16 at 16:01; Status DC Warfarin Sodium (Coumadin) 6 mg 1X WARF ONCE PO Last administered on 16:56; Start 10/05/16 at 16:00; Stop 10/05/16 at 16:01; Status DC Prazosin HCl (Minipress) 3 mg QHS PO Last administered on 10/08/16 20:19; Start 10/05/16 at 21:00 Cyanocobalamin (Vitamin B-12) 250 mcg DAILY PO Last administered on 10/09/16 08 :07; Start 10/06/16 at 09:00 Calcium Carbonate/ Glycine (Tums) 500 mg 1X ONCE PO Last administered on 08:59; Start 10/06/16 at 08:45; Stop 10/06/16 at 08:46; Status DC Warfarin Sodium (Coumadin) 6 mg 1X WARF ONCE PO Last administered on 17:12; Start 10/06/16 at 16:00; Stop 10/06/16 at 16:01; Status DC Warfarin Sodium (Coumadin) 6 mg DAILY16 PO Last administered on 10/09/16 16:53 ; Start 10/07/16 at 16:00 Buspirone HCl (Buspar) 10 mg TID PO Last administered on 10/09/16 14:01; Start 10/08/16 at 09:00 Aspirin (Children'S Aspirin) 81 mg DAILYWBKFT PO Last administered on 10/09/16 08:09; Start 10/08/16 at 09:30 Mirtazapine (Remeron) 7.5 mg QHS PO Last administered on 10/08/16 20:22; Start 10/08/16 at 21:00 Quetiapine Fumarate (SEROquel) 12.5 mg BID92 PO Last administered on 10/09/16 14:01; Start 10/09/16 at 09:00 Active Scripts Active Reported Colcrys (Colchicine) 0.6 Mg Tablet 0.6 Mg PO TID Coumadin (Warfarin Sodium) 6 Mg Tablet 6 Mg PO DAILYWSUP Testosterone Cypionate 200 Mg/1 Ml Vial 200 Mg IM QMONTH Aciphex (Rabeprazole Sodium) 20 Mg Tablet.dr 20 Mg PO BID Pravastatin Sodium 20 Mg Tablet 20 Mg PO HS Percocet 5-325 Mg Tablet (Oxycodone Hcl/Acetaminophen) 1 Each Tablet 2 Tab PO QID Nabumetone 750 Mg Tablet 750 Mg PO BID Lisinopril 20 Mg Tablet 20 Mg PO DAILY Ferrous Sulfate 325 Mg Tablet 324 Mg PO DAILY Carbidopa-Levo 10-100 Mg Odt (Carbidopa/Levodopa) 1 Each Tab.rapdis 2 Tab PO TID Risperidone 1 Mg Tablet 1 Mg PO DAILY Ditropan Xl (Oxybutynin Chloride) 10 Mg Tab.er.24 10 Mg PO DAILY Zolpidem Tartrate 10 Mg Tablet 10 Mg PO PRN QHS PRN Venlafaxine Hcl Er (Venlafaxine Hcl) 75 Mg Cap.er.24h 150 Mg PO BID Trazodone Hcl 100 Mg Tablet 200 Mg PO HS [place] Carbonate 450 Mg Tablet.er 450 Mg PO DAILY Clonazepam 1 Mg Tablet 1 Mg PO PRN BID PRN Vitamin D3 (Cholecalciferol (Vitamin D3)) 1,000 Unit Tablet 1,000 Unit PO DAILY Wellbutrin Xl (Bupropion Hcl) 300 Mg Tab.er.24h 300 Mg PO DAILY Acyclovir 200 Mg Capsule 400 Mg PO BID Zyloprim (Allopurinol) 300 Mg Tablet 300 Mg PO DAILY Mirapex (Pramipexole Di-Hcl) 0.25 Mg Tablet 0.25 Mg PO TID Gabapentin 600 Mg Tablet 600 Mg PO TID Diagnosis: Problems: (1) Anxiety disorder (2) Impulse control disorder (3) Major depressive disorder, recurrent episode (4) Parkinson's disease (5) Psychosis, atypical ROLA VARGAS MD Oct 09, 2016 19:36
[2016-10-09] MEDS: PRAVASTATIN 20 MG TABLET. PO SCH (20:05)
[2016-10-09] MEDS: MIRTAZAPINE 7.5 MG TABLET. PO SCH (20:13)
[2016-10-09] MEDS: traZODone 100 MG TABLET. PO SCH (20:13)
[2016-10-09] MEDS: MELATONIN 3 MG TABLET PO SCH (20:14)
[2016-10-09] MEDS: PRAZOSIN 1 MG CAPSULE. PO SCH (20:42)
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
[2016-10-10] MEDS ORDERED: ACET325T9 PO (01:38)
[2016-10-10] MEDS ORDERED: ASPI-630 PO (01:44)
[2016-10-10] MEDS ORDERED: CARB1TAB2 PO (01:47)
[2016-10-10] MEDS ORDERED: CYAN250T PO (01:52)
[2016-10-10] MEDS ORDERED: MAG30ORA PO (02:02)
[2016-10-10] MEDS ORDERED: MAGN2400 PO (02:08)
[2016-10-10] MEDS ORDERED: MELA3TAB2 PO (02:14)
[2016-10-10] MEDS ORDERED: METH29OI TP (02:21)
[2016-10-10] MEDS ORDERED: MIRT15TA PO (02:25)
[2016-10-10] MEDS ORDERED: PRAZ1CAP PO (02:39)
[2016-10-10] MEDS ORDERED: QUET25TA5 PO ×3 (03:01→03:25)
[2016-10-10] MEDS ORDERED: BUSP10TA PO (03:16)
[2016-10-10 05:41] VITALS: BP 144/75
[2016-10-10 06:25] LABS: BASO # 0.1 x10^3/uL (0.0-0.2); BASO % 1 % (0-3); EOS # 0.4 x10^3/uL (0.0-0.7); EOS % 8 % (0-3); HEMATOCRIT 39.7 % (39.0-53.0); HEMOGLOBIN 13.1 g/dL (13.0-17.5); LYMPH # 1.4 x10^3/uL (1.0-4.8); LYMPH % 24 % (24-48); MEAN CORPUSCULAR HEMOGLOBIN 31 pg (25-35); MEAN CORPUSCULAR HGB CONC 33 g/dL (31-37); MEAN CORPUSCULAR VOLUME 93 fL (79-100); MONO # 0.7 x10^3/uL (0.0-1.1); MONO % 12 % (0-9); NEUT # 3.2 x10^3uL (1.8-7.7); NEUT % 56 % (31-73); PLATELET COUNT 130 x10^3/uL (140-400); RED BLOOD COUNT 4.26 x10^6/uL (4.30-5.70); RED CELL DISTRIBUTION WIDTH 19.7 % (11.5-14.5); WHITE BLOOD COUNT 5.8 x10^3/uL (4.0-11.0)
[2016-10-10 06:40] LABS: ALBUMIN 3.5 g/dL (3.4-5.0); ALBUMIN/GLOBULIN RATIO 1.1 (1.0-1.7); CALCIUM 8.9 mg/dL (8.5-10.1); CREATININE 1.4 mg/dL (0.7-1.3); GFR 50.1; POTASSIUM 4.1 mmol/L (3.5-5.1); TOTAL BILIRUBIN 0.4 mg/dL (0.2-1.0); TOTAL PROTEIN 6.7 g/dL (6.4-8.2)
[2016-10-10] MEDS: PRAMIPEXOLE 0.25 MG TABLET. PO SCH (08:00)
[2016-10-10] MEDS: COLCHICINE 0.6 MG TABLET PO SCH (08:00)
[2016-10-10] MEDS: OXYBUTYNIN CHLORIDE 5 MG TABLET PO SCH (08:00)
[2016-10-10] MEDS: FERROUS SULFATE 325 MG TABLET PO SCH (08:00)
[2016-10-10] MEDS: busPIRone 10 MG TABLET. PO SCH (08:00)
[2016-10-10] MEDS: PANTOPRAZOLE 40 MG TABLET. PO SCH (08:01)
[2016-10-10] MEDS: MELOXICAM 15 MG TABLET. PO SCH (08:01)
[2016-10-10] MEDS: buPROPion XL 300 MG TAB.ER.24H. PO SCH (08:01)
[2016-10-10] MEDS: VENLAFAXINE 50 MG TABLET. PO SCH (08:01)
[2016-10-10] MEDS: LITHIUM CARBONATE ER 450 MG TABLET.ER PO SCH (08:01)
[2016-10-10] MEDS: QUEtiapine 25 MG TABLET. PO SCH (08:02)
[2016-10-10] MEDS: ALLOPURINOL 300 MG TABLET. PO SCH (08:02)
[2016-10-10] MEDS: ASPIRIN 81 MG TAB.CHEW PO SCH (08:02)
[2016-10-10] MEDS: GABAPENTIN 300 MG CAPSULE. PO SCH (08:03)
[2016-10-10] MEDS: oxyCODONE/APAP 5/325 1 TAB TABLET PO SCH (08:03)
[2016-10-10] MEDS: CHOLECALCIFEROL (VITAMIN D3) 1,000 UNIT TABLET PO SCH (08:03)
[2016-10-10] MEDS: CYANOCOBALAMIN (VITAMIN B-12) 250 MCG TABLET PO SCH (08:03)
[2016-10-10] MEDS: CARBIDOPA/LEVODOPA 25/100MG TABLET PO SCH (08:03)
[2016-10-10 08:04] VITALS: BP 144/75
[2016-10-10] MEDS: ACYCLOVIR 200 MG CAPSULE PO SCH (08:04)
[2016-10-10] MEDS: LISINOPRIL 20 MG TABLET PO SCH (08:04)
[2016-10-10] MEDS ORDERED: VENL75CA PO (09:55)
--- NOTE | 2016-10-10 18:31 | PDOC ---
Exam Hai Demential Exam: Hai Note: Please also refer to the separate dictated note~for this date of service dictated separately.~Patient seen individually. Discussed the patient with Nursing staff reviewed the chart.~Reviewed interim history and current functioning. Reviewed vital signs,~Labs/ Radiology~and current medications noted below. Continue current treatment with the changes noted in the dictated addendum note Assessment: Vital Signs: Vital Signs Date Time Temp Pulse Resp B/P (MAP) Pulse Ox O2 Delivery O2 Flow Rate FiO2 10/10/16 09:15 94 10/10/16 08:04 59 144/75 10/10/16 05:41 97.9 16 10/09/16 21:30 Room Air I&O Intake and Output 10/10/16 07:00 Intake Total 1670 ml Balance 1670 ml Intake Oral 1670 ml # Voids 1 Labs: Laboratory Tests Test 10/10/16 05:58 White Blood Count 5.8 x10^3/uL (4.0-11.0) Red Blood Count 4.26 x10^6/uL (4.30-5.70) L Hemoglobin 13.1 g/dL (13.0-17.5) Hematocrit 39.7 % (39.0-53.0) Mean Corpuscular Volume 93 fL (79-100) Mean Corpuscular Hemoglobin 31 pg (25-35) Mean Corpuscular Hemoglobin Concent 33 g/dL (31-37) Red Cell Distribution Width 19.7 % (11.5-14.5) H Platelet Count 130 x10^3/uL (140-400) L Neutrophils (%) (Auto) 56 % (31-73) Lymphocytes (%) (Auto) 24 % (24-48) Monocytes (%) (Auto) 12 % (0-9) H Eosinophils (%) (Auto) 8 % (0-3) H Basophils (%) (Auto) 1 % (0-3) Neutrophils # (Auto) 3.2 x10^3uL (1.8-7.7) Lymphocytes # (Auto) 1.4 x10^3/uL (1.0-4.8) Monocytes # (Auto) 0.7 x10^3/uL (0.0-1.1) Eosinophils # (Auto) 0.4 x10^3/uL (0.0-0.7) Basophils # (Auto) 0.1 x10^3/uL (0.0-0.2) Sodium Level 138 mmol/L (136-145) Potassium Level 4.1 mmol/L (3.5-5.1) Chloride Level 107 mmol/L (98-107) Carbon Dioxide Level 22 mmol/L (21-32) Anion Gap 9 (6-14) Blood Urea Nitrogen 24 mg/dL (8-26) Creatinine 1.4 mg/dL (0.7-1.3) H Estimated GFR (Cockcroft-Gault) 50.1 BUN/Creatinine Ratio 17 (6-20) Glucose Level 92 mg/dL (70-99) Calcium Level 8.9 mg/dL (8.5-10.1) Total Bilirubin 0.4 mg/dL (0.2-1.0) Aspartate Amino Transferase (AST) 75 U/L (15-37) H Alanine Aminotransferase (ALT) 34 U/L (16-63) Alkaline Phosphatase 103 U/L (46-116) Total Protein 6.7 g/dL (6.4-8.2) Albumin 3.5 g/dL (3.4-5.0) Albumin/Globulin Ratio 1.1 (1.0-1.7) Current Medications: Meds: Current Medications Acetaminophen (Tylenol) 650 mg PRN Q6HRS PRN PO PAIN / TEMP; Start 09/26/16 at 21:45; Stop 10/10/16 at 13:19; Status DC Multi-Ingredient Ointment (Analgesic [place]) 1 joyce PRN QID PRN TP MUSCLE PAIN; Start 09/26/16 at 21:45; Stop 10/10/16 at 13:19; Status DC Al Hydroxide/Mg Hydroxide (Mylanta Plus Xs) 15 ml PRN AFTMEALHC PRN PO DYSPEPSIA; Start 09/26/16 at 21:45; Stop 10/10/16 at 13:19; Status DC Magnesium Hydroxide (Milk Of Magnesia) 2,400 mg PRN QHS PRN PO CONSTIPATION; Start 09/26/16 at 21:45; Stop 10/10/16 at 13:19; Status DC Bupropion HCl (Wellbutrin Xl) 300 mg DAILY PO Last administered on 10/10/16t 08: 01; Start 09/27/16 at 09:00; Stop 10/10/16 at 13:19; Status DC Clonazepam (KlonoPIN) 1 mg PRN BID PRN PO ANXIETY / AGITATION Last administered on 10/02/16 00:40; Start 09/26/16 at 22:00; Stop 10/10/16 at 13:19 ; Status DC [place] Carbonate (Eskalith) 450 mg DAILY PO Last administered on 10/10/16 08: 01; Start 09/27/16 at 09:00; Stop 10/10/16 at 13:19; Status DC Trazodone HCl (Desyrel) 200 mg HS PO Last administered on 10/09/16 20:13; Start 09/27/16 at 21:00; Stop 10/10/16 at 13:19; Status DC Venlafaxine HCl (Effexor) 150 mg BID PO ; Start 09/26/16 at 22:30; Stop at 22:30; Status DC Trazodone HCl (Desyrel) 200 mg 1X ONCE PO Last administered on 09/26/16 22:39 ; Start 09/26/16 at 22:35; Stop 09/26/16 at 22:36; Status DC Venlafaxine HCl (Effexor) 50 mg TID PO Last administered on 10/10/16 08:01; Start 09/27/16 at 09:00; Stop 10/10/16 at 13:19; Status DC Venlafaxine HCl (Effexor) 50 mg 1X ONCE PO Last administered on 09/26/16 22: 49; Start 09/26/16 at 22:50; Stop 09/26/16 at 22:51; Status DC Zolpidem Tartrate (Ambien) 10 mg PRN QHS PRN PO INSOMNIA Last administered on 19:58; Start 09/26/16 at 23:15; Stop 10/01/16 at 21:00; Status DC Acyclovir (Zovirax) 400 mg BID PO Last administered on 10/10/16 08:04; Start at 09:00; Stop 10/10/16 at 13:19; Status DC Allopurinol (Zyloprim) 300 mg DAILY PO Last administered on 10/10/16 08:02; Start 09/27/16 at 09:00; Stop 10/10/16 at 13:19; Status DC Vitamin D (Vitamin D3) 1,000 unit DAILY PO Last administered on 10/10/16 08:03 ; Start 09/27/16 at 09:00; Stop 10/10/16 at 13:19; Status DC Colchicine (Colcrys) 0.6 mg TID PO Last administered on 10/10/16 08:00; Start 09/27/16 at 09:00; Stop 10/10/16 at 13:19; Status DC Ferrous Sulfate (Feosol) 324 mg DAILY PO Last administered on 09/28/16 07:57; Start 09/27/16 at 09:00; Stop 09/29/16 at 08:46; Status DC Lisinopril (Prinivil) 20 mg DAILY PO Last administered on 10/10/16 08:04; Start 09/27/16 at 09:00; Stop 10/10/16 at 13:19; Status DC Oxycodone/ Acetaminophen (Percocet 5/325) 2 tab QID PO Last administered on 10/10 08:03; Start 09/27/16 at 09:00; Stop 10/10/16 at 13:19; Status DC Pramipexole Dihydrochloride (miraPEX) 0.25 mg TID PO Last administered on 08:00; Start 09/27/16 at 09:00; Stop 10/10/16 at 13:19; Status DC Pravastatin Sodium (Pravachol) 20 mg HS PO Last administered on 10/09/16 20:05 ; Start 09/27/16 at 21:00; Stop 10/10/16 at 13:19; Status DC Risperidone (RisperDAL) 1 mg DAILY PO Last administered on 09/28/16 07:57; Start 09/27/16 at 09:00; Stop 09/29/16 at 00:29; Status DC Testosterone Cypionate (Depo-Testosterone) 200 mg QMONTH IM ; Start 09/27/16 at 09:00; Stop 09/27/16 at 14:01; Status DC Warfarin Sodium (Coumadin) 6 mg DAILYWSUP PO Last administered on 09/27/16 17: 00; Start 09/27/16 at 17:00; Stop 09/28/16 at 09:50; Status DC Zolpidem Tartrate (Ambien) 10 mg PRN QHS PRN PO INSOMNIA; Start 09/27/16 at 07: 30; Status UNV Carbidopa/Levodopa (Sinemet 10/100) 2 tab TID PO Last administered on 13:03; Start 09/27/16 at 09:00; Stop 09/30/16 at 18:27; Status DC Gabapentin (Neurontin) 600 mg TID PO Last administered on 10/10/16 08:03; Start 09/27/16 at 09:00; Stop 10/10/16 at 13:19; Status DC Meloxicam (Mobic) 15 mg DAILY PO Last administered on 10/10/16 08:01; Start at 09:00; Stop 10/10/16 at 13:19; Status DC Oxybutynin Chloride (Ditropan) 5 mg BID PO Last administered on 10/10/16 08:00 ; Start 09/27/16 at 09:00; Stop 10/10/16 at 13:19; Status DC Pantoprazole Sodium (Protonix) 40 mg DAILYAC PO Last administered on 10/10/16 08:01; Start 09/27/16 at 09:00; Stop 10/10/16 at 13:19; Status DC Testosterone Cypionate (Depo-Testosterone) 200 mg QMONTH IM ; Start 10/11/16 at 09:00; Stop 10/11/16 at 09:00; Status DC Warfarin Sodium (Coumadin Per Physician) 1 each PRN DAILY PRN MC SEE COMMENTS; Start 09/28/16 at 08:30; Stop 09/28/16 at 08:38; Status DC Warfarin Sodium (Coumadin Per Pharmacy) 1 each PRN DAILY PRN MC SEE COMMENTS Last administered on 10/09/16 12:48; Start 09/28/16 at 08:30; Stop 10/10/16 at 13 :19; Status DC Warfarin Sodium (Coumadin) 7.5 mg 1X WARF ONCE PO Last administered on 18:12; Start 09/28/16 at 16:00; Stop 09/28/16 at 16:01; Status DC Buspirone HCl (Buspar) 5 mg BID@0900,1400 PO Last administered on 10/03/16 09: 10; Start 09/29/16 at 09:00; Stop 10/03/16 at 10:35; Status DC Prazosin HCl (Minipress) 1 mg QHS PO Last administered on 10/01/16 19:22; Start 09/29/16 at 21:00; Stop 10/02/16 at 19:10; Status DC Risperidone (RisperDAL) 0.75 mg QHS PO Last administered on 09/30/16 21:10; Start 09/29/16 at 21:00; Stop 10/01/16 at 20:59; Status DC Risperidone (RisperDAL) 0.5 mg QHS PO Last administered on 10/02/16 19:12; Start 10/01/16 at 21:00; Stop 10/03/16 at 20:59; Status DC Risperidone (RisperDAL) 0.25 mg QHS PO Last administered on 10/05/16 19:16; Start 10/03/16 at 21:00; Stop 10/05/16 at 21:00; Status DC Warfarin Sodium (Coumadin) 7.5 mg 1X WARF ONCE PO Last administered on 16:55; Start 09/29/16 at 16:00; Stop 09/29/16 at 16:01; Status DC Ferrous Sulfate (Feosol) 325 mg DAILY PO Last administered on 10/10/16 08:00; Start 09/29/16 at 09:00; Stop 10/10/16 at 13:19; Status DC Warfarin Sodium (Coumadin) 7.5 mg 1X WARF ONCE PO Last administered on 16:02; Start 09/30/16 at 16:00; Stop 09/30/16 at 16:01; Status DC Carbidopa/Levodopa (Sinemet 25/100) 2 tab TID PO Last administered on 10/10/16 08:03; Start 09/30/16 at 21:00; Stop 10/10/16 at 13:19; Status DC Warfarin Sodium (Coumadin) 7.5 mg 1X WARF ONCE PO Last administered on 16:57; Start 10/01/16 at 16:00; Stop 10/01/16 at 16:01; Status DC Zolpidem Tartrate (Ambien) 10 mg HS PO Last administered on 10/01/16 21:34; Start 10/01/16 at 21:00; Stop 10/02/16 at 19:10; Status DC Zolpidem Tartrate (Ambien) 10 mg PRN QHS PRN PO INSOMNIA; Start 10/01/16 at 18: 45; Stop 10/02/16 at 19:10; Status DC Warfarin Sodium (Coumadin) 10 mg 1X WARF ONCE PO Last administered on 17:17; Start 10/02/16 at 16:00; Stop 10/02/16 at 16:01; Status DC Prazosin HCl (Minipress) 2 mg QHS PO Last administered on 10/04/16 19:25; Start 10/02/16 at 21:00; Stop 10/05/16 at 18:46; Status DC Melatonin 3 mg PRN QHS PRN PO INSOMNIA Last administered on 10/02/16 19:42; Start 10/02/16 at 19:15; Stop 10/03/16 at 07:16; Status DC Melatonin 3 mg HS PO ; Start 10/02/16 at 21:00; Stop 10/02/16 at 21:00; Status DC Melatonin 3 mg HS PO Last administered on 10/09/16 20:14; Start 10/03/16 at 21: 00; Stop 10/10/16 at 13:19; Status DC Buspirone HCl (Buspar) 5 mg TID PO Last administered on 10/07/16 19:15; Start 10/03/16 at 14:00; Stop 10/08/16 at 06:48; Status DC Warfarin Sodium (Coumadin) 7.5 mg 1X WARF ONCE PO Last administered on 17:13; Start 10/03/16 at 16:00; Stop 10/03/16 at 16:01; Status DC Warfarin Sodium (Coumadin) 6 mg 1X WARF ONCE PO Last administered on 17:15; Start 10/04/16 at 16:00; Stop 10/04/16 at 16:01; Status DC Warfarin Sodium (Coumadin) 6 mg 1X WARF ONCE PO Last administered on 16:56; Start 10/05/16 at 16:00; Stop 10/05/16 at 16:01; Status DC Prazosin HCl (Minipress) 3 mg QHS PO Last administered on 10/09/16 20:42; Start 10/05/16 at 21:00; Stop 10/10/16 at 13:19; Status DC Cyanocobalamin (Vitamin B-12) 250 mcg DAILY PO Last administered on 10/10/16 08 :03; Start 10/06/16 at 09:00; Stop 10/10/16 at 13:19; Status DC Calcium Carbonate/ Glycine (Tums) 500 mg 1X ONCE PO Last administered on 08:59; Start 10/06/16 at 08:45; Stop 10/06/16 at 08:46; Status DC Warfarin Sodium (Coumadin) 6 mg 1X WARF ONCE PO Last administered on 17:12; Start 10/06/16 at 16:00; Stop 10/06/16 at 16:01; Status DC Warfarin Sodium (Coumadin) 6 mg DAILY16 PO Last administered on 10/09/16 16:53 ; Start 10/07/16 at 16:00; Stop 10/10/16 at 13:19; Status DC Buspirone HCl (Buspar) 10 mg TID PO Last administered on 10/10/16 08:00; Start 10/08/16 at 09:00; Stop 10/10/16 at 13:19; Status DC Aspirin (Children'S Aspirin) 81 mg DAILYWBKFT PO Last administered on 10/10/16 08:02; Start 10/08/16 at 09:30; Stop 10/10/16 at 13:19; Status DC Mirtazapine (Remeron) 7.5 mg QHS PO Last administered on 10/09/16 20:13; Start 10/08/16 at 21:00; Stop 10/10/16 at 13:19; Status DC Quetiapine Fumarate (SEROquel) 12.5 mg BID92 PO Last administered on 10/10/16 08:02; Start 10/09/16 at 09:00; Stop 10/10/16 at 13:19; Status DC Active Scripts Active Reported Seroquel (Quetiapine Fumarate) 25 Mg Tablet 12.5 Mg PO BID92 Buspirone Hcl 10 Mg Tablet 10 Mg PO TID Minipress (Prazosin Hcl) 1 Mg Capsule 3 Mg PO QHS Remeron (Mirtazapine) 15 Mg Tablet 7.5 Mg PO QHS Analgesic [place] (Methyl Salicylate/Menthol) 28 Gm Oint...g. 1 Joyce TP PRN QID PRN Melatonin 3 Mg Tablet 3 Mg PO DAILY Milk Of Magnesia (Magnesium Hydroxide) 2,400 Mg/10 Ml Oral.susp 2,400 Mg PO PRN QHS PRN Mag-Al Plus Suspension (Mag Hydrox/Al Hydrox/Simeth) 30 Ml Oral.susp 15 Ml PO PRN AFTMEAL PRN Vitamin B-12 (Cyanocobalamin (Vitamin B-12)) 250 Mcg Tablet 250 Mcg PO DAILY Sinemet 25-100 Mg Tablet (Carbidopa/Levodopa) 1 Each Tablet 2 Tab PO TID Aspirin 81 Mg Tab.chew 81 Mg PO DAILYWBKFT Tylenol (Acetaminophen) 325 Mg Tablet 650 Mg PO PRN Q6HRS PRN Colcrys (Colchicine) 0.6 Mg Tablet 0.6 Mg PO TID Coumadin (Warfarin Sodium) 6 Mg Tablet 6 Mg PO DAILY16 Aciphex (Rabeprazole Sodium) 20 Mg Tablet.dr 20 Mg PO BID Pravastatin Sodium 20 Mg Tablet 20 Mg PO HS Percocet 5-325 Mg Tablet (Oxycodone Hcl/Acetaminophen) 1 Each Tablet 2 Tab PO QID Nabumetone 750 Mg Tablet 750 Mg PO BID Lisinopril 20 Mg Tablet 20 Mg PO DAILY Ferrous Sulfate 325 Mg Tablet 325 Mg PO DAILY Ditropan Xl (Oxybutynin Chloride) 10 Mg Tab.er.24 10 Mg PO DAILY Venlafaxine Hcl Er (Venlafaxine Hcl) 75 Mg Cap.er.24h 50 Mg PO TID Trazodone Hcl 100 Mg Tablet 200 Mg PO HS [place] Carbonate 450 Mg Tablet.er 450 Mg PO DAILY Clonazepam 1 Mg Tablet 1 Mg PO PRN BID PRN Vitamin D3 (Cholecalciferol (Vitamin D3)) 1,000 Unit Tablet 1,000 Unit PO DAILY Wellbutrin Xl (Bupropion Hcl) 300 Mg Tab.er.24h 300 Mg PO DAILY Acyclovir 200 Mg Capsule 400 Mg PO BID Zyloprim (Allopurinol) 300 Mg Tablet 300 Mg PO DAILY Mirapex (Pramipexole Di-Hcl) 0.25 Mg Tablet 0.25 Mg PO TID Gabapentin 600 Mg Tablet 600 Mg PO TID Diagnosis: Problems: (1) Psychosis, atypical (2) Parkinson's disease (3) Major depressive disorder, recurrent episode (4) Impulse control disorder (5) Anxiety disorder ROLA VARGAS MD Oct 10, 2016 18:31
--- NOTE | 2016-10-10 21:06 | PN ---
DATE: 10/09/2016 PSYCHIATRIC PROGRESS NOTE This is a late entry of 10/09/2016 covers elements not covered in my initial note. SUBJECTIVE: The patient was seen individually evening of 10/09/2016. He has been calm, compliant, well oriented. Family came to visit him, visit went well. REVIEW OF SYSTEMS: Ambulation impaired with a walker. No CV, , pulmonary, eye, ENT system symptoms on review. MENTAL STATUS EXAM: Reasonably oriented. Speech is coherent, abstraction fair, computation impaired, language function intact, attention span short. Mood and affect is improved, mood lability is better as well. LABORATORY DATA: Reviewed. IMPRESSION: Unchanged from initial note. PLAN: Continue Effexor, lithium, Wellbutrin, trazodone, Klonopin p.r.n., Remeron together with Seroquel and melatonin p.r.n., BuSpar 10 mg 3 times a day. Transition to a lower level of care in the next day or two. ROLA VARGAS MD DR: MILKA/carmela JOB#: [id number] / [id number]
[2016-10-11] MEDS ORDERED: TESTOSTERONE CYPIONATE 200 MG/ML VIAL. IM SCH (09:00)
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
== END 2016-10-10 13:19 | disposition home or self-care (01) | DRG 885 ==
LOC: GEROPSY 19:50
PROVIDERS: ADMIT Psychiatry & Neurology Psychiatry; ATTEND Psychiatry & Neurology Psychiatry
DX: F31.77 Bipolar disorder, in partial remission, most recent episode mixed (principal); F43.10 Post-traumatic stress disorder, unspecified; F63.9 Impulse disorder, unspecified; F31.64 Bipolar disorder, current episode mixed, severe, with psychotic features; E78.5 Hyperlipidemia, unspecified; G47.00 Insomnia, unspecified; I10 Essential (primary) hypertension; Z96.651 Presence of right artificial knee joint; Z96.642 Presence of left artificial hip joint; G89.29 Other chronic pain; G20 Parkinson's disease; M54.5 Low back pain; R00.1 Bradycardia, unspecified; E66.9 Obesity, unspecified; M10.9 Gout, unspecified; M19.90 Unspecified osteoarthritis, unspecified site; X58.XXXA Exposure to other specified factors, initial encounter; R29.6 Repeated falls; Z79.01 Long term (current) use of anticoagulants; Z79.899 Other long term (current) drug therapy; Z86.718 Personal history of other venous thrombosis and embolism; Z88.8 Allergy status to other drugs, medicaments and biological substances; Z68.35 Body mass index [BMI] 35.0-35.9, adult; Z95.0 Presence of cardiac pacemaker; Y93.89 Activity, other specified; Y92.89 Other specified places as the place of occurrence of the external cause; Y99.8 Other external cause status
CPT/HCPCS: 36415; 80053; 80061; 80178; 82306; 82553; 82607; 83036; 83540; 83550; 83735; 84436; 84443; 84480; 84484; 85027; 85610; 85730; 86592; 86593; 93005; 97110; 97116; 97530